=== PATIENT | female | born 1980 | race Caucasian/White ===

== ENCOUNTER 2016-11-05 23:39 | Emergency (ER) | payer OTHER ==
[~2016-11-05 23:39] MED LIST: ACAR25TA2 PO; ACAR50TA2 PO; ACET50TAOT PO; ADDE1TAB20 PO; ADDE30CA PO; ADDE5TAB5 PO; AMBI10TA PO; AMBI5TAB PO; AMPH30TA PO; BACITAB3 PO; BACT2CRE TOP; BACT2OIN2 TOP; BENA25TA4 PO; CALC500C16 PO; CALC600T10 PO; CALCCHW18 PO; CLEO300C2 PO; CLON0.5T PO; COLA100C PO; DOXE150C7 PO; ESZO1TAB3 PO; FLUO10CA8 PO; FLUO20CA9 PO; FOLI1TAB2 PO; GABA300C3 PO; GABA600T PO; GLUC1KIT INJ; IBUP600T26 PO; IBUP80TA PO; KEFL500C7 PO; KLON1TAB PO; LATU20TA PO; LATU40TA PO; MULT1TAB8 PO; MULTCAP PO; MULTCHW13 PO; MUPI2OI TOP; NEUR300C PO; NEUR400C PO; NEUR600T PO; OXYCO5TA PO; PANT40TA2 PO; PARO30TA70 PO; PENI50TA PO; PROTPAK PO; PROZ20CA11 PO; PROZ40CA PO; ROXICODONE; STRA80CA PO; TIZA2CAP3 PO; TIZA2TA PO; TIZA4CAP3 PO; TOPA25TA10 PO; TOPA50TA7 PO; TRAZ100T4 PO; TRAZ25TA PO; TRAZO50TA PO; TYLE500T78 PO; VALI10TA PO; VARE1TA PO; VENL150C43 PO; VIBR100C PO; VITA10002 PO; VITA100066 PO; VITA1CHW8 PO; VITATAB11 PO; VITATAB73 PO; VITMTA PO; ZANA4TAB PO
--- NOTE | 2016-11-06 01:16 | EDDOCDS ---
Nurse's Notes [facility] Name: Lianne Saldana Age: 35 yrs Sex: Female : 1980 Arrival Date: 11/05/2016 Time: 23:39 Bed 12 Private MD: Unknown Pcp Diagnosis: Fall on same level, unspecified;Chronic pain syndrome Presentation: 11/05 23:56 Presenting complaint: Patient states: "I am stressed and moving and upset. I fell and cf2 now can't feel my right side, I can move everything, I passed out, my cellulitis spread from one leg to both" EMS states: States fell with +LOC, moves all extremities, neuro checks WNL. Aspirin was not taken prior to arrival. Adult Sepsis Screening: The patient does not have new or worsening altered mentation. Patient's respiratory rate is less than 22. Systolic blood pressure is greater than 100. Patient has a qSOFA score of 0- Negative Sepsis Screen. Suicide/Homicide risk assessment- the patient denies having any suicidal and/or homicidal ideations and does not present with any other emotional, behavioral or mental health complaints. Status: Status: The patient is a dependent. Transition of care: patient was not received from another setting of care. 23:56 Acuity: KRYS Level 3 cf2 23:56 Method Of Arrival: Ambulance cf2 Triage Assessment: 11/06 00:00 General: Appears in no apparent distress, comfortable. Pain: Denies pain. Pt Declines cf2 HIV testing. Cardiovascular: Chest pain. 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 Adderall XR 30 mg Oral cp24 1 cap twice a day not taking at this time 2. Ambien 10 mg Oral tab 1 tab nightly prn not taking at this time 3. gabapentin 300 mg Oral cap 3 caps 3 times per day 4. Valium 10 mg Oral tab 5. topiramate 25 mg oral cpSP 1 caps 2 times per day 6. Latuda 40 mg oral tab 7. trazodone 50 mg Oral tab 1 tab on HS as needed - PMHx: ADHD; Anemia; Anxiety; Depression; Hypoglycemia; insomnia; PTSD; Raynauds; Sciatica; TBI; - The history from nurses notes was reviewed: and I agree with what is documented. - Social history: Smoking status: Patient uses tobacco products, light tobacco smoker. Race: White, Ethnicity: Not or No barriers to communication noted, The patient speaks fluent Bolivian, Preferred Language: Bolivian. - : The pt / caregiver states he / she is not on anticoagulants. Home medication list is obtained from the patient. - Hospitalizations: : No recent hospitalization is reported. - Exposure Risk Screening:: None identified. - Immunization history:: All immunizations up-to-date. - Family history: Not pertinent. 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 Screenin/02 23:43 Infection Control. sew 11/06 00:26 Screening information is obtained from the patient. Fall risk: No risks identified. cf2 Assistance ADL's: requires no assistance with activities of daily living. Abuse/DV Screen: The patient / caregiver reports he/she is: not in a situation that causes fear, pain or injury. Nutritional screening: No deficits noted. Advance Directives: Further advance directive information is declined. home support is adequate. Assessment: 00:26 Adult Sepsis Screening: The patient does not have new or worsening altered mentation. cf2 Patient's respiratory rate is less than 22. Systolic blood pressure is greater than 100. Patient has a qSOFA score of 0- Negative Sepsis Screen. General: Appears in no apparent distress, comfortable, Behavior is appropriate for age, cooperative, Denies fever, feeling ill, fatigue, chills. Pain: Denies pain. Neurological: No deficits noted. EENT: No deficits noted. Cardiovascular: Rhythm is sinus rhythm Chest pain is denied. Respiratory: No deficits noted. GI: No deficits noted. : No deficits noted. Derm: No deficits noted. Musculoskeletal: No deficits noted. Injury Description: pt fell. 01:12 General: pt refused to sigh discharge papers stating she is going to report Dr Corrina glass because he did not give her pain medications. Stated she was going to throw discharge papers at the doctors face and I advised her that this was not in her best interest. pt left the department ambulatory without incident.. Vital Signs: 11/05 23:47 BP 126 / 60; Pulse 84; Resp 18; Temp 96.9(O); Pulse Ox 98% on R/A; Weight 101.15 kg irena (R); Height 5 ft. 8 in. (172.72 cm) (R); Pain 8/10; 23:47 Body Mass Index 33.91 (101.15 kg, 172.72 cm) irena Vitals: 11/06 00:00 Log In Time N/A - ambulance arrival. cf2 ED Course: 11/05 23:41 Patient visited by Norma Nolan. sew 23:41 Unknown Pcp is Private Physician. sew 23:41 Patient moved to 12 sew 23:42 Patient visited by Norma Nolan. sew 23:42 Raf Houser MD is Attending Physician. pc 23:44 Mary Ellen Zamora,LUNA is Primary Nurse. cf2 23:44 Patient visited by Mary Ellen Zamora,LUNA. cf2 23:44 Patient visited by Mary Ellen Zamora,LUNA. cf2 23:47 Patient visited by Clemencia Velásquez PCA. irena 23:47 Pt greeted and oriented to ED. Patient advised of names of staff involved in care, irena location of call [place], wait times and NPO status. Patient has correct armband on for positive identification. Placed in gown. Bed in low position. Call light in reach. Side rails up X2. 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 Pulse ox on. NIBP on. 23:54 Patient visited by Raf Houser MD. pc 23:56 Patient visited by Mary Ellen Zamora,LUNA. cf2 23:56 EKG done. (by ED staff). Reviewed by Raf Houser MD. irena 23:57 Patient visited by Clemencia Velásquez PCA. irena 23:58 Triage Initiated cf2 11/06 00:26 Patient visited by Mary Ellen Zamora,LUNA. cf2 00:26 The patient / caregiver is instructed regarding the plan of care and ED course. cf2 00:26 No IV's were initiated during this patient's visit. No procedures done that require cf2 assistance. 00:41 Patient visited by Mary Ellen Zamora,LUNA. cf2 00:46 [facility] is Referral Physician. pc 00:47 [facility] Payment Agreement was scanned into [employer] and attached to record. hs2 00:52 Patient visited by Mary Ellen Zamora,RN. cf2 Order Results: There are currently no results for this order. Outcome: 00:47 Discharge ordered by Provider. 01:10 Discharge Assessment: patient administered narcotics - no. The following High Risk maria luisa Discharge criteria are identified: None. Discharged to home ambulatory. Condition: stable. Discharge instructions given to patient, Instructed on discharge instructions, follow up and referral plans. Demonstrated understanding of instructions, Patient was not receptive of discharge instructions. Other pt demanding pain medication. CT Study completed. Property sent home with patient. 01:15 Patient left the ED. maria luisa Signatures: Raf Houser MD MD pc Newman, Jill New RN RN Clemencia Walker, BARREL FILLER BARREL FILLER Norma Alvarez Hillary, [facility] Reg hs2 Mary Ellen Zamora,RN RN cf2 MTDD
--- NOTE | 2016-11-06 01:16 | EDDOCDS ---
Physician Documentation [facility] Name: Lianne Saldana Age: 35 yrs Sex: Female : 1980 Arrival Date: 11/05/2016 Time: 23:39 Bed 12 Private MD: Unknown Pcp Disposition: 11/06 00:45 Critical Care: Critical care not applicable. pc Disposition: 11/06/16 00:47 Discharged to Home/Self Care. Impression: Fall on same level, unspecified, Chronic pain syndrome. - Condition is Stable. - Discharge Instructions: Chronic Pain. - Medication Reconciliation, Local Pharmacy Hours form. - Follow up: [facility]; When: As needed; Reason: Continuance of care. - Problem is chronic. - Symptoms are unchanged. HPI: 00:18 This 35 yrs old Female presents to ER via Ambulance with complaints of Head pc Injury. 00:18 The history is obtained from the patient, EMS providers. A reliable history and/or pc examination was not able to be obtained, due to Asleep, wakened to interview. Speaking with slow thick speech as usual, due to medication overuse. Per EMS she had chest pain which the patient denies. She says she did not get home off the road from [place] until 7am today, and has been cleaning all day to be out of their apartment by tomorrow afternoon. She says she felt "overcome, like it took a toll on my body and mind, and I fell to the floor while standing at the sink". She thinks she may have passed out for a few minutes. She says she crawled down to her room and lay down for 40 minutes. She says she is able to move all of her arms and legs but her right arm and leg feel numb. She says she walks with a limp because of chronic hip problems but that it is worse tonight. 00:23 The patient has been recently seen at the [facility], last week, for AMS, pc when she was found to be overusing her medications again and she signed out AMA. She says she moved to [place] to get help with her drug abuse but after 48 hours, " no one would start me on Suboxone, so I came back". Historical: - Allergies: Bactrim (Hives); Bentyl (Seizures); IV Dye (Rash); NSAIDS (can not take due to gastric bypass)gastric bypas procedure done in 2002; - Home Meds: 1. Adderall XR 30 mg Oral cp24 1 cap twice a day not taking at this time 2. Ambien 10 mg Oral tab 1 tab nightly prn not taking at this time 3. gabapentin 300 mg Oral cap 3 caps 3 times per day 4. Valium 10 mg Oral tab 5. topiramate 25 mg oral cpSP 1 caps 2 times per day 6. Latuda 40 mg oral tab 7. trazodone 50 mg Oral tab 1 tab on HS as needed - PMHx: ADHD; Anemia; Anxiety; Depression; Hypoglycemia; insomnia; PTSD; Raynauds; Sciatica; TBI; - The history from nurses notes was reviewed: and I agree with what is documented. - Social history: Smoking status: Patient uses tobacco products, light tobacco smoker. Race: White, Ethnicity: Not or No barriers to communication noted, The patient speaks fluent Egyptian, Preferred Language: Egyptian. - : The pt / caregiver states he / she is not on anticoagulants. Home medication list is obtained from the patient. - Hospitalizations: : No recent hospitalization is reported. - Exposure Risk Screening:: None identified. - Immunization history:: All immunizations up-to-date. - Family history: Not pertinent. 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 pc 00:25 All systems are negative except as listed. Exam: 00:25 General Appearance: no acute distress. pc 00:25 EENT: normal eye inspection, ears, nose and throat normal, pharynx normal, mucous membranes moist no apparent trauma, no scalp pain or signs of injury. 00:25 Neck: The exam reveals no acute abnormalities. ROM is normal and painless. No nuchal rigidity is noted.. 00:25 Respiratory: no respiratory distress, normal breath sounds, chest non-tender. 00:25 CVS: regular pulse rate, regular rhythm, normal S1 and S2, no murmurs, strong peripheral pulses, normal capillary refill. 00:25 Abdomen: soft, non-tender, no organomegaly, normal bowel sounds. 00:25 Back: normal inspection. 00:25 Skin: skin color is normal, warm, dry, multiple skin sores on LEs. 00:25 Extremities: are non-tender, without acute ROM abnormalities. 00:25 Neuro: oriented x 3, no motor deficits, no sensory deficits, cranial nerves normal except for Speech is slowed. 00:25 Psych: normal mood. Vital Signs: 11/05 23:47 BP 126 / 60; Pulse 84; Resp 18; Temp 96.9(O); Pulse Ox 98% on R/A; Weight 101.15 kg / irena 223 lbs (R); Height 5 ft. 8 in. (172.72 cm) (R); Pain 8/10; 23:47 Body Mass Index 33.91 (101.15 kg, 172.72 cm) irena MDM: 23:51 ECG WITH READING ER PHYS+CARDIAG ordered. EDMS 11/06 00:13 CT Head Without Contrast Ordered. EDMS 00:25 Differential Diagnosis: reported fall, head injury and sensory complaints with normal pc physical examination; known medication/drug abuser. Plan: CT. 00:45 Data reviewed: old medical records, vital signs, nurses notes, all radiology studies pc and available results. Test interpretation: interpreted by Radiologist and personally reviewed, Head CT; normal. The patient has been re-examined and re-evaluated. The clinical presentation did not require any ED treatment or interventions. Disposition: The historical points, examination findings, and any diagnostic results supporting the provided diagnosis, were discussed with the patient or legal guardian. The need for outpatient follow up with the provider listed on their discharge instructions was discussed. They were encouraged to return to [facility], or the nearest ED, if symptoms worsen/persist, or for any other questions/concerns. 00:46 Financial registration complete. hs2 00:47 [facility] Payment Agreement was scanned into [employer] and attached to record. hs2 00:48 Test interpretation: EKG. pc EC:48 Rate is 82 beats/min. Rhythm is regular, Normal Sinus Rhythm. QRS [place] is Normal. SC pc interval is normal. QRS interval is normal. QT interval is normal. No Q waves. T waves are Normal. No ST changes noted. Clinical impression: Normal Sinus Rhythm. Signatures: Dispatcher [facility] Raf Houser MD MD pc Newman, Jill New, RN RN jan Stanton, Hillary, Reg Reg hs2 Mary Ellen Zamora,RN RN cf2 The chart was reviewed and I authenticate all verbal orders and agree with the evaluation and treatment provided.Attachments: 00:47 [facility] Payment Agreement hs2 MTDD
--- NOTE | 2016-11-06 08:14 | ECGEPIP ---
Stationary ECG Study [facility] - ED Test Date: 2016-11-05 Pat Name: TOMÁS LYNCH Department: Room: - Gender: F School Age Program Associate: WayneB: 1980 Requested By: Raf Heredia Order Number: [id number] Reading MD: Norma Munguia Measurements Intervals [place] Rate: 82 P: 28 WV: 168 QRS: 17 QRSD: 89 T: -1 QT: 373 QTc: 436 Interpretive Statements SINUS RHYTHM NSTTW ABNORMALITY BASELINE ARTIFACT LIMITS INTERPRETATION Electronically Signed On 11-06-2016 8:14:29 EST by Norma Munguia
--- NOTE | 2016-11-08 02:16 | EDDOCDS ---
Physician Documentation [facility] Name: Lianne Saldana Age: 35 yrs Sex: Female : 1980 Arrival Date: 11/05/2016 Time: 23:39 Bed 12 Private MD: Unknown Pcp Disposition: 11/06 00:45 Critical Care: Critical care not applicable. pc Disposition: 11/06/16 00:47 Discharged to Home/Self Care. Impression: Fall on same level, unspecified, Chronic pain syndrome. - Condition is Stable. - Discharge Instructions: Chronic Pain. - Medication Reconciliation, Local Pharmacy Hours form. - Follow up: [facility]; When: As needed; Reason: Continuance of care. - Problem is chronic. - Symptoms are unchanged. HPI: 00:18 This 35 yrs old Female presents to ER via Ambulance with complaints of Head pc Injury. 00:18 The history is obtained from the patient, EMS providers. A reliable history and/or pc examination was not able to be obtained, due to Asleep, wakened to interview. Speaking with slow thick speech as usual, due to medication overuse. Per EMS she had chest pain which the patient denies. She says she did not get home off the road from [place] until 7am today, and has been cleaning all day to be out of their apartment by tomorrow afternoon. She says she felt "overcome, like it took a toll on my body and mind, and I fell to the floor while standing at the sink". She thinks she may have passed out for a few minutes. She says she crawled down to her room and lay down for 40 minutes. She says she is able to move all of her arms and legs but her right arm and leg feel numb. She says she walks with a limp because of chronic hip problems but that it is worse tonight. 00:23 The patient has been recently seen at the [facility], last week, for AMS, pc when she was found to be overusing her medications again and she signed out AMA. She says she moved to [place] to get help with her drug abuse but after 48 hours, " no one would start me on Suboxone, so I came back". Historical: - Allergies: Bactrim (Hives); Bentyl (Seizures); IV Dye (Rash); NSAIDS (can not take due to gastric bypass)gastric bypas procedure done in 2002; - Home Meds: 1. Adderall XR 30 mg Oral cp24 1 cap twice a day not taking at this time 2. Ambien 10 mg Oral tab 1 tab nightly prn not taking at this time 3. gabapentin 300 mg Oral cap 3 caps 3 times per day 4. Valium 10 mg Oral tab 5. topiramate 25 mg oral cpSP 1 caps 2 times per day 6. Latuda 40 mg oral tab 7. trazodone 50 mg Oral tab 1 tab on HS as needed - PMHx: ADHD; Anemia; Anxiety; Depression; Hypoglycemia; insomnia; PTSD; Raynauds; Sciatica; TBI; - The history from nurses notes was reviewed: and I agree with what is documented. - Social history: Smoking status: Patient uses tobacco products, light tobacco smoker. Race: White, Ethnicity: Not or No barriers to communication noted, The patient speaks fluent Czech, Preferred Language: Czech. - : The pt / caregiver states he / she is not on anticoagulants. Home medication list is obtained from the patient. - Hospitalizations: : No recent hospitalization is reported. - Exposure Risk Screening:: None identified. - Immunization history:: All immunizations up-to-date. - Family history: Not pertinent. 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 pc 00:25 All systems are negative except as listed. Exam: 00:25 General Appearance: no acute distress. pc 00:25 EENT: normal eye inspection, ears, nose and throat normal, pharynx normal, mucous membranes moist no apparent trauma, no scalp pain or signs of injury. 00:25 Neck: The exam reveals no acute abnormalities. ROM is normal and painless. No nuchal rigidity is noted.. 00:25 Respiratory: no respiratory distress, normal breath sounds, chest non-tender. 00:25 CVS: regular pulse rate, regular rhythm, normal S1 and S2, no murmurs, strong peripheral pulses, normal capillary refill. 00:25 Abdomen: soft, non-tender, no organomegaly, normal bowel sounds. 00:25 Back: normal inspection. 00:25 Skin: skin color is normal, warm, dry, multiple skin sores on LEs. 00:25 Extremities: are non-tender, without acute ROM abnormalities. 00:25 Neuro: oriented x 3, no motor deficits, no sensory deficits, cranial nerves normal except for Speech is slowed. 00:25 Psych: normal mood. Vital Signs: 11/05 23:47 BP 126 / 60; Pulse 84; Resp 18; Temp 96.9(O); Pulse Ox 98% on R/A; Weight 101.15 kg / irena 223 lbs (R); Height 5 ft. 8 in. (172.72 cm) (R); Pain 8/10; 23:47 Body Mass Index 33.91 (101.15 kg, 172.72 cm) irena MDM: 23:51 ECG WITH READING ER PHYS+CARDIAG ordered. EDMS 11/06 00:13 CT Head Without Contrast Ordered. EDMS 00:25 Differential Diagnosis: reported fall, head injury and sensory complaints with normal pc physical examination; known medication/drug abuser. Plan: CT. 00:45 Data reviewed: old medical records, vital signs, nurses notes, all radiology studies pc and available results. Test interpretation: interpreted by Radiologist and personally reviewed, Head CT; normal. The patient has been re-examined and re-evaluated. The clinical presentation did not require any ED treatment or interventions. Disposition: The historical points, examination findings, and any diagnostic results supporting the provided diagnosis, were discussed with the patient or legal guardian. The need for outpatient follow up with the provider listed on their discharge instructions was discussed. They were encouraged to return to [facility], or the nearest ED, if symptoms worsen/persist, or for any other questions/concerns. 00:46 Financial registration complete. hs2 00:[address] [place] Payment Agreement was scanned into [employer] and attached to record. hs2 00:48 Test interpretation: EKG. pc 10:23 ECG/EKG was scanned into [employer] and attached to record. EC:48 Rate is 82 beats/min. Rhythm is regular, Normal Sinus Rhythm. QRS [place] is Normal. [place] pc interval is normal. QRS interval is normal. QT interval is normal. No Q waves. T waves are Normal. No ST changes noted. Clinical impression: Normal Sinus Rhythm. Signatures: Dispatcher [facility] Chafe, Raf, Mabel Sanchez MD RN RN Lisa Gaspar, Reg Reg gb Frannie Brenner, Reg Reg hs2 Mary Ellen Zamora,RN RN cf2 The chart was reviewed and I authenticate all verbal orders and agree with the evaluation and treatment provided.Attachments: 00:47 [facility] Payment Agreement hs2 10:23 ECG/EKG gb Chart Complete MTDD
--- NOTE | 2016-11-08 02:16 | EDDOCDS ---
Nurse's Notes [facility] Name: Lianne Lynch Age: 35 yrs Sex: Female : 1980 Arrival Date: 11/05/2016 Time: 23:39 Bed 12 Private MD: Unknown Pcp Diagnosis: Fall on same level, unspecified;Chronic pain syndrome Presentation: 11/05 23:56 Presenting complaint: Patient states: "I am stressed and moving and upset. I fell and cf2 now can't feel my right side, I can move everything, I passed out, my cellulitis spread from one leg to both" EMS states: States fell with +LOC, moves all extremities, neuro checks WNL. Aspirin was not taken prior to arrival. Adult Sepsis Screening: The patient does not have new or worsening altered mentation. Patient's respiratory rate is less than 22. Systolic blood pressure is greater than 100. Patient has a qSOFA score of 0- Negative Sepsis Screen. Suicide/Homicide risk assessment- the patient denies having any suicidal and/or homicidal ideations and does not present with any other emotional, behavioral or mental health complaints. Status: Status: The patient is a dependent. Transition of care: patient was not received from another setting of care. 23:56 Acuity: KRYS Level 3 cf2 23:56 Method Of Arrival: Ambulance cf2 Triage Assessment: 11/06 00:00 General: Appears in no apparent distress, comfortable. Pain: Denies pain. Pt Declines cf2 HIV testing. Cardiovascular: Chest pain. [facility]: 00:00 LMP N/A - Hysterectomy cf2 Historical: - Allergies: Bactrim (Hives); Bentyl (Seizures); IV Dye (Rash); NSAIDS (can not take due to gastric bypass)gastric bypas procedure done in 2002; - Home Meds: 1. Adderall XR 30 mg Oral cp24 1 cap twice a day not taking at this time 2. Ambien 10 mg Oral tab 1 tab nightly prn not taking at this time 3. gabapentin 300 mg Oral cap 3 caps 3 times per day 4. Valium 10 mg Oral tab 5. topiramate 25 mg oral cpSP 1 caps 2 times per day 6. Latuda 40 mg oral tab 7. trazodone 50 mg Oral tab 1 tab on HS as needed - PMHx: ADHD; Anemia; Anxiety; Depression; Hypoglycemia; insomnia; PTSD; Raynauds; Sciatica; TBI; - The history from nurses notes was reviewed: and I agree with what is documented. - Social history: Smoking status: Patient uses tobacco products, light tobacco smoker. Race: White, Ethnicity: Not or No barriers to communication noted, The patient speaks fluent Zambian, Preferred Language: Zambian. - : The pt / caregiver states he / she is not on anticoagulants. Home medication list is obtained from the patient. - Hospitalizations: : No recent hospitalization is reported. - Exposure Risk Screening:: None identified. - Immunization history:: All immunizations up-to-date. - Family history: Not pertinent. 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 Screenin/02 23:43 Infection Control. sew 11/06 00:26 Screening information is obtained from the patient. Fall risk: No risks identified. cf2 Assistance ADL's: requires no assistance with activities of daily living. Abuse/DV Screen: The patient / caregiver reports he/she is: not in a situation that causes fear, pain or injury. Nutritional screening: No deficits noted. Advance Directives: Further advance directive information is declined. home support is adequate. Assessment: 00:26 Adult Sepsis Screening: The patient does not have new or worsening altered mentation. cf2 Patient's respiratory rate is less than 22. Systolic blood pressure is greater than 100. Patient has a qSOFA score of 0- Negative Sepsis Screen. General: Appears in no apparent distress, comfortable, Behavior is appropriate for age, cooperative, Denies fever, feeling ill, fatigue, chills. Pain: Denies pain. Neurological: No deficits noted. EENT: No deficits noted. Cardiovascular: Rhythm is sinus rhythm Chest pain is denied. Respiratory: No deficits noted. GI: No deficits noted. : No deficits noted. Derm: No deficits noted. Musculoskeletal: No deficits noted. Injury Description: pt fell. 01:12 General: pt refused to sigh discharge papers stating she is going to report Dr Corrina glass because he did not give her pain medications. Stated she was going to throw discharge papers at the doctors face and I advised her that this was not in her best interest. pt left the department ambulatory without incident.. Vital Signs: 11/05 23:47 BP 126 / 60; Pulse 84; Resp 18; Temp 96.9(O); Pulse Ox 98% on R/A; Weight 101.15 kg irena (R); Height 5 ft. 8 in. (172.72 cm) (R); Pain 8/10; 23:47 Body Mass Index 33.91 (101.15 kg, 172.72 cm) irena Vitals: 11/06 00:00 Log In Time N/A - ambulance arrival. cf2 ED Course: 11/05 23:41 Patient visited by Norma Nolan. sew 23:41 Unknown Pcp is Private Physician. sew 23:41 Patient moved to 12 sew 23:42 Patient visited by Norma Nolan. sew 23:42 Raf Houser MD is Attending Physician. pc 23:44 Mary Ellen Zamora,LUNA is Primary Nurse. cf2 23:44 Patient visited by Mary Ellen Zamora,LUNA. cf2 23:44 Patient visited by Mary Ellen Zamora,LUNA. cf2 23:47 Patient visited by Clemencia Velásquez PCA. irena 23:47 Pt greeted and oriented to ED. Patient advised of names of staff involved in care, irena location of call [place], wait times and NPO status. Patient has correct armband on for positive identification. Placed in gown. Bed in low position. Call light in reach. Side rails up X2. box inspector on. Pulse ox on. NIBP on. 23:54 Patient visited by Raf Houser MD. pc 23:56 Patient visited by Mary Ellen Zamora,LUNA. cf2 23:56 EKG done. (by ED staff). Reviewed by Raf Houser MD. irena 23:57 Patient visited by Clemencia Velásquez PCA. irena 23:58 Triage Initiated cf2 11/06 00:26 Patient visited by Mary Ellen Zamora,LUNA. cf2 00:26 The patient / caregiver is instructed regarding the plan of care and ED course. cf2 00:26 No IV's were initiated during this patient's visit. No procedures done that require cf2 assistance. 00:41 Patient visited by Mary Ellen Zamora,LUNA. cf2 00[facility] pc 00:47 [facility] Payment Agreement was scanned into [employer] and attached to record. hs2 00:52 Patient visited by Mary Ellen Zamora RN. cf2 01:16 CT Head Without Contrast Returned. EDMS 08:36 EKG-ADULT Returned. EDMS 10:23 ECG/EKG was scanned into [employer] and attached to record. 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; : 1980 Requested By: Raf Heredia; Order Number: [id number] Reading MD: Norma Munguia; Measurements; Intervals [place]; Rate: 82 P: 28; VT: 168 QRS: 17; QRSD: 89 T: -1; QT: 373; QTc: 436; Interpretive Statements; SINUS RHYTHM; NSTTW ABNORMALITY; BASELINE ARTIFACT LIMITS INTERPRETATION; Electronically Signed On 11-06-2016 8:14:29 EST by Norma Munguia; Radiology Order: CT Head Without Contrast Test: CT Head Without Contrast REASON FOR EXAMINATION: Trauma; ; CLINICAL HISTORY: Head trauma.; TECHNIQUE: Multiple axial brain CT scan sections were obtained from base to vertex without contrast a; dministration.; COMMENTS:; There is no evidence of skull fracture.; The study shows normal configuration of sella turcica. There are no intra or extra-axial collections.; There is no mass effect or midline shift. There is no evidence of hematoma formation. No hydrocephal; us is present. No abnormal calcifications are noted.; No significant abnormalities are seen either in the posterior fossa or supratentorial compartment.; The sinuses and mastoid air cells are patent.; IMPRESSION:; No evidence of acute intracranial pathology. No intracranial hemorrhage or skull fracture.; Thank you for your kind referral of this patient.; ; Outcome: 00:47 Discharge ordered by Provider. pc 01:10 Discharge Assessment: patient administered narcotics - no. The following High Risk maria luisa Discharge criteria are identified: None. Discharged to home ambulatory. Condition: stable. Discharge instructions given to patient, Instructed on discharge instructions, follow up and referral plans. Demonstrated understanding of instructions, Patient was not receptive of discharge instructions. Other pt demanding pain medication. CT Study completed. Property sent home with patient. 01:15 Patient left the ED. maria luisa Signatures: Dispatcher [employer] EDRaf Ag MD MD pc Newman, Mabel Mendoza, RN RN Lisa Gaspar, Reg Reg gb Clemencia Velásquez, AUTOMOBILE ACCESSORIES SALESPERSON [employer]ESSOR[employer] SALESPERSON Norma Alvarez Hillary, Reg Reg hs2 Mary Ellen Zamora RN RN cf2 Chart Complete MTDD
--- NOTE | 2016-11-08 02:16 | EDDOCDS ---
Physician Documentation [facility] Name: Lianne Saldana Age: 35 yrs Sex: Female : 1980 Arrival Date: 11/05/2016 Time: 23:39 Bed 12 Private MD: Unknown Pcp Disposition: 11/06 00:45 Critical Care: Critical care not applicable. pc Disposition: 11/06/16 00:47 Discharged to Home/Self Care. Impression: Fall on same level, unspecified, Chronic pain syndrome. - Condition is Stable. - Discharge Instructions: Chronic Pain. - Medication Reconciliation, Local Pharmacy Hours form. - Follow up: [facility]; When: As needed; Reason: Continuance of care. - Problem is chronic. - Symptoms are unchanged. HPI: 00:18 This 35 yrs old Female presents to ER via Ambulance with complaints of Head pc Injury. 00:18 The history is obtained from the patient, EMS providers. A reliable history and/or pc examination was not able to be obtained, due to Asleep, wakened to interview. Speaking with slow thick speech as usual, due to medication overuse. Per EMS she had chest pain which the patient denies. She says she did not get home off the road from [place] until 7am today, and has been cleaning all day to be out of their apartment by tomorrow afternoon. She says she felt "overcome, like it took a toll on my body and mind, and I fell to the floor while standing at the sink". She thinks she may have passed out for a few minutes. She says she crawled down to her room and lay down for 40 minutes. She says she is able to move all of her arms and legs but her right arm and leg feel numb. She says she walks with a limp because of chronic hip problems but that it is worse tonight. 00:23 The patient has been recently seen at the [facility], last week, for AMS, pc when she was found to be overusing her medications again and she signed out AMA. She says she moved to [place] to get help with her drug abuse but after 48 hours, " no one would start me on Suboxone, so I came back". Historical: - Allergies: Bactrim (Hives); Bentyl (Seizures); IV Dye (Rash); NSAIDS (can not take due to gastric bypass)gastric bypas procedure done in 2002; - Home Meds: 1. Adderall XR 30 mg Oral cp24 1 cap twice a day not taking at this time 2. Ambien 10 mg Oral tab 1 tab nightly prn not taking at this time 3. gabapentin 300 mg Oral cap 3 caps 3 times per day 4. Valium 10 mg Oral tab 5. topiramate 25 mg oral cpSP 1 caps 2 times per day 6. Latuda 40 mg oral tab 7. trazodone 50 mg Oral tab 1 tab on HS as needed - PMHx: ADHD; Anemia; Anxiety; Depression; Hypoglycemia; insomnia; PTSD; Raynauds; Sciatica; TBI; - The history from nurses notes was reviewed: and I agree with what is documented. - Social history: Smoking status: Patient uses tobacco products, light tobacco smoker. Race: White, Ethnicity: Not or No barriers to communication noted, The patient speaks fluent Yemeni, Preferred Language: Yemeni. - : The pt / caregiver states he / she is not on anticoagulants. Home medication list is obtained from the patient. - Hospitalizations: : No recent hospitalization is reported. - Exposure Risk Screening:: None identified. - Immunization history:: All immunizations up-to-date. - Family history: Not pertinent. 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 pc 00:25 All systems are negative except as listed. Exam: 00:25 General Appearance: no acute distress. pc 00:25 EENT: normal eye inspection, ears, nose and throat normal, pharynx normal, mucous membranes moist no apparent trauma, no scalp pain or signs of injury. 00:25 Neck: The exam reveals no acute abnormalities. ROM is normal and painless. No nuchal rigidity is noted.. 00:25 Respiratory: no respiratory distress, normal breath sounds, chest non-tender. 00:25 CVS: regular pulse rate, regular rhythm, normal S1 and S2, no murmurs, strong peripheral pulses, normal capillary refill. 00:25 Abdomen: soft, non-tender, no organomegaly, normal bowel sounds. 00:25 Back: normal inspection. 00:25 Skin: skin color is normal, warm, dry, multiple skin sores on LEs. 00:25 Extremities: are non-tender, without acute ROM abnormalities. 00:25 Neuro: oriented x 3, no motor deficits, no sensory deficits, cranial nerves normal except for Speech is slowed. 00:25 Psych: normal mood. Vital Signs: 11/05 23:47 BP 126 / 60; Pulse 84; Resp 18; Temp 96.9(O); Pulse Ox 98% on R/A; Weight 101.15 kg / irena 223 lbs (R); Height 5 ft. 8 in. (172.72 cm) (R); Pain 8/10; 23:47 Body Mass Index 33.91 (101.15 kg, 172.72 cm) irena MDM: 23:51 ECG WITH READING ER PHYS+CARDIAG ordered. EDMS 11/06 00:13 CT Head Without Contrast Ordered. EDMS 00:25 Differential Diagnosis: reported fall, head injury and sensory complaints with normal pc physical examination; known medication/drug abuser. Plan: CT. 00:45 Data reviewed: old medical records, vital signs, nurses notes, all radiology studies pc and available results. Test interpretation: interpreted by Radiologist and personally reviewed, Head CT; normal. The patient has been re-examined and re-evaluated. The clinical presentation did not require any ED treatment or interventions. Disposition: The historical points, examination findings, and any diagnostic results supporting the provided diagnosis, were discussed with the patient or legal guardian. The need for outpatient follow up with the provider listed on their discharge instructions was discussed. They were encouraged to return to [facility], or the nearest ED, if symptoms worsen/persist, or for any other questions/concerns. 00:46 Financial registration complete. hs2 00:47 [place] Payment Agreement was scanned into [employer] and attached to record. hs2 00:48 Test interpretation: EKG. pc 10:23 ECG/EKG was scanned into [employer] and attached to record. EC:48 Rate is 82 beats/min. Rhythm is regular, Normal Sinus Rhythm. QRS [place] is Normal. [place] pc interval is normal. QRS interval is normal. QT interval is normal. No Q waves. T waves are Normal. No ST changes noted. Clinical impression: Normal Sinus Rhythm. Signatures: Dispatcher [facility] Chafe, Raf, Mabel Sanchez MD RN RN Lisa Gaspar, Reg Reg gb Frannie Brenner, Reg Reg hs2 Mary Ellen Zamora,RN RN cf2 The chart was reviewed and I authenticate all verbal orders and agree with the evaluation and treatment provided.Attachments: 00:47 [facility] Payment Agreement hs2 10:23 ECG/EKG gb Chart Complete MTDD
== END 2016-11-06 01:15 | disposition home or self-care (01) ==
LOC: M ED 23:39
DX: G89.4 Chronic pain syndrome (principal); W19.XXXA Unspecified fall, initial encounter; Y92.019 Unspecified place in single-family (private) house as the place of occurrence of the external cause; Y93.89 Activity, other specified; Y99.8 Other external cause status; F41.9 Anxiety disorder, unspecified; F32.9 Major depressive disorder, single episode, unspecified; F43.10 Post-traumatic stress disorder, unspecified; F90.9 Attention-deficit hyperactivity disorder, unspecified type; G47.00 Insomnia, unspecified; I73.00 Raynaud's syndrome without gangrene; M54.30 Sciatica, unspecified side; Z87.820 Personal history of traumatic brain injury; Z72.0 Tobacco use; Z98.84 Bariatric surgery status; Z79.899 Other long term (current) drug therapy; Z88.1 Allergy status to other antibiotic agents; Z88.6 Allergy status to analgesic agent; Z88.8 Allergy status to other drugs, medicaments and biological substances; Z91.041 Radiographic dye allergy status

== ENCOUNTER 2016-11-07 13:44 | Emergency (ER) | payer OTHER ==
[2016-11-07] MEDS ORDERED: ONDANSETRON 4MG/2ML VIAL (J2405) As Ordered ONE (14:07)
[2016-11-07] MEDS ORDERED: PROMETHAZINE INJ 25 MG/ML VIAL (J2550) As Ordered ONE (14:21)
[2016-11-07 14:24] LABS: MEAN CORPUSCULAR HEMOGLOBIN 30.4 pg (27.0-33.0); MEAN CORPUSCULAR HGB CONC 32.2 g/dl (32.0-36.5); MEAN CORPUSCULAR VOLUME 94.1 fl (80.0-96.0); RED CELL DISTRIBUTION WIDTH 14.4 % (11.5-14.5); WHITE BLOOD COUNT 8.9 K/mm3 (4.0-10.0)
[2016-11-07 14:37] LABS: ALBUMIN 3.8 GM/DL (3.2-5.2); ALBUMIN/GLOBULIN RATIO 0.95 (1.00-1.93); ALKALINE PHOSPHATASE 35 U/L (45-117); ALT/SGPT 21 U/L (12-78); ANION GAP 10 MEQ/L (8-16); AST/SGOT 28 U/L (15-37); BILIRUBIN,DIRECT 0.1 MG/DL (0.0-0.2); BILIRUBIN,TOTAL 0.3 MG/DL (0.2-1.0); BLOOD UREA NITROGEN 12 MG/DL (7-18); CALCIUM LEVEL 8.6 MG/DL (8.5-10.1); CARBON DIOXIDE LEVEL 21 MEQ/L (21-32); CHLORIDE LEVEL 112 MEQ/L (98-107); CREATININE FOR GFR 1.13 MG/DL (0.55-1.02); GLOMERULAR FILTRATION RATE 57.7 (>60); GLUCOSE, FASTING 46 MG/DL (70-105); POTASSIUM SERUM 3.7 MEQ/L (3.5-5.1); SODIUM LEVEL 143 MEQ/L (136-145); TOTAL PROTEIN 7.8 GM/DL (6.4-8.2)
[2016-11-07 14:50] LABS: INR 1.07
[2016-11-07 15:03] LABS: AMPHETAMINES LEVEL URINE POSITIVE (NEGATIVE); BENZODIAZEPINES URINE POSITIVE (NEGATIVE); COCAINE METABOLITE URINE NEGATIVE (NEGATIVE); CONTROL LINE INT CTR LINE PRESENT; METHADONE URINE NEGATIVE (NEGATIVE); OPIATES URINE POSITIVE (NEGATIVE); TRICYCLIC ANTIDEPRESS URINE NEGATIVE (NEGATIVE)
[2016-11-07] MEDS ORDERED: DEXTROSE 50% 50 ML SYRINGE As Ordered ONE (18:28)
--- NOTE | 2016-11-07 23:13 | EDDOCDS ---
Physician Documentation [facility] Name: Lianne Saldana Age: 35 yrs Sex: Female : 1980 Arrival Date: 11/07/2016 Time: 13:44 Bed 3 Private MD: Tonya Alvarez Disposition: 11/07/16 22:34 Discharged to Home/Self Care. Impression: Opioid dependence with intoxication, Hypoglycemia, unspecified. - Condition is Stable. - Medication Reconciliation, Local Pharmacy Hours form. - Follow up: Private Physician; When: As previously arranged. - Problem is an ongoing problem. - Symptoms have improved. Historical: - Allergies: Bactrim (Hives); Bentyl (Seizures); IV Dye (Rash); NSAIDS (can not take due to gastric bypass)gastric bypas procedure done in 2002; - Home Meds: 1. Latuda 40 mg oral tab 1 tab once daily (Last dose: 11/07/2016 07:00) 2. topiramate 50 mg oral tab (Last dose: 11/07/2016 09:00) 3. Adderall XR 30 mg Oral cp24 1 cap twice a day not taking at this time 4. Valium 10 mg Oral tab states out of valium and adderal , uses them recreationaly and non additional today 5. gabapentin 300 mg Oral cap 3 caps 3 times per day 6. clonidine HCl 0.2 mg Oral tab once daily (Last dose: 11/06/2016) 7. Cipro 500 mg Oral tab 1 tab every 12 hours (Last dose: 11/04/2016) - PMHx: ADHD; Anemia; Anxiety; Depression; Hypoglycemia; insomnia; PTSD; Raynauds; Sciatica; TBI; - PSHx: Cholecystectomy; Tubal ligation; Gastric Bypass; Hysterectomy; - Social history: Smoking status: Patient uses tobacco products, current some day smoker. No barriers to communication noted, The patient speaks fluent Ukrainian. - Family history: Not pertinent. - : The pt / caregiver states he / she is not on anticoagulants. Home medication list is obtained from the patient. - Exposure Risk Screening:: None identified. 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 8 in. (172.72 cm); 14:30 BP 106 / 78 (auto/); ck1 14:34 Pulse 90 MON; Pulse Ox 99% ; ck1 15:00 BP 100 / 62 (auto/); ck1 15:00 Pulse 95 MON; Pulse Ox 99% ; ck1 15:30 BP 96 / 50 (auto/); ck1 15:51 BP 103 / 51 (auto/); ck1 15:52 Pulse 110 MON; Pulse Ox 100% ; ck1 16:00 BP 94 / 50 (auto/); ck1 16:00 BP 89 / 45 (auto/); ck1 16:00 Pulse 110 MON; Pulse Ox 91% ; ck1 16:01 Pulse 106 MON; Pulse Ox 96% ; ck1 16:02 Pulse 105 MON; Pulse Ox 100% ; ck1 16:03 Pulse 106 MON; Pulse Ox 100% ; ck1 16:08 BP 103 / 50 (auto/); ck1 16:38 BP 123 / 58 (auto/); ck1 16:53 BP 116 / 59 (auto/); ck1 17:08 BP 111 / 56 (auto/); ck1 17:09 Pulse 114 MON; Pulse Ox 100% ; ck1 17:10 Pulse 114 MON; Pulse Ox 98% ; ck1 17:23 BP 120 / 58 (auto/); ck1 17:38 BP 113 / 56 (auto/); ck1 17:53 BP 101 / 50 (auto/); ck1 17:53 Pulse 108 MON; Pulse Ox 95% ; ck1 17:57 BP 103 / 55 (auto/); ck1 17:57 Pulse 107 MON; Pulse Ox 95% ; ck1 18:03 BP 129 / 80 (auto/); ck1 18:04 Pulse 108 MON; Pulse Ox 99% ; ck1 18:11 BP 103 / 55; Pulse 107; Resp 16; Temp 99.0(O); Pulse Ox 95% on R/A; hs1 18:36 Pulse 95 MON; Pulse Ox 97% ; ck1 18:36 BP 121 / 56 (auto/); ck1 13:55 Body Mass Index 37.71 (112.49 kg, 172.72 cm) [facility] MDM: 13:55 Consult PFS/PSA/Grocery Store Bagger ordered. sd1 13:55 Consult PFS/PSA/Grocery Store Bagger: Patient's case requires discussion with on-call sd1 Psychiatrist ordered. 13:55 PSA/PFS to call Nursing Forestry Instructor, to enter patient data on [place] Safe [place] if patient sd1 involuntarily admitted or transferred for SI or HI ordered. 13:55 Chancery Clerk/Pulse Ox/q 15 min VS ordered. sd1 13:55 Confirm accurate psychiatric medication list and times of last dosage ordered. sd1 13:55 Detain Pt Until Medically/PFS Cleared ordered. sd1 13:55 IV Saline Lock ordered. sd1 13:57 Acetaminophen Level Ordered. EDMS 13:57 Basic Metabolic Profile Ordered. EDMS 13:57 Complete Blood Count Ordered. EDMS 13:57 Drug Eval Toxicology ED Only Ordered. EDMS 13:57 Ethyl Alcohol (ethanol) Ordered. EDMS 13:57 Liver Profile Ordered. EDMS 13:57 Salicylate Level Ordered. EDMS 13:57 Thyroid Stimulating Hormone Ordered. EDMS 14:12 NS 0.9% 1000 ml IV at bolus once ordered. sd1 14:12 Promethazine 25 mg IVP once; dilute and administer 30-60 minutes ordered. sd1 14:13 PT/INR Ordered. EDMS 14:18 PSA/PFS to call Nursing Forestry Instructor, to enter patient data [place] Safe [place] if patient ck1 involuntarily admitted or transferred for SI or HI complete. 14:18 Consult PFS/PSA/Grocery Store Bagger: Patient's case requires discussion with on-call ck1 Psychiatrist complete. 14:18 Consult PFS/PSA/Grocery Store Bagger complete. ck1 15:06 Basic Metabolic Profile Reviewed. sd1 15:06 Complete Blood Count Reviewed. sd1 15:06 Drug Eval Toxicology ED Only Reviewed. sd1 15:06 Liver Profile Reviewed. sd1 15:06 Salicylate Level Reviewed. sd1 15:06 Acetaminophen Level Reviewed. sd1 15:06 Ethyl Alcohol (ethanol) Reviewed. sd1 15:06 Thyroid Stimulating Hormone Reviewed. sd1 15:06 PT/INR Reviewed. sd1 16:03 [facility] [place] was scanned into [employer] and attached to record. dm19 16:04 Financial registration complete. dm19 17:11 NS 0.9% 1000 ml IV at bolus once ordered. ck1 17:13 NS 0.9% 1000 ml IV at bolus once ordered. sd1 17:55 Misc. Nursing Order ordered. sd1 18:10 Redraw Labs ordered. sd1 18:10 Accucheck ordered. sd1 18:11 Redraw Labs complete. lbd 18:14 ACETAMINOPHEN LEVEL Ordered. EDMS 18:21 Fingerstick Blood Sugar Ordered. EDMS 18:25 D50W 50 ml IVP once; (1 amp) ordered. sd1 19:02 ACETAMINOPHEN LEVEL Reviewed. sd1 19:02 Fingerstick Blood Sugar Reviewed. sd1 19:03 Redraw Acetaminophen (put time in details section) ordered. sd1 19:05 Redraw Acetaminophen (put time in details section) complete. sew 19:06 ACETAMINOPHEN LEVEL Ordered. EDMS 21:20 Ambulate Patient to Assess Patient Safety ordered. cs11 22:13 ACETAMINOPHEN LEVEL Reviewed. cs11 22:14 Accucheck ordered. cs11 22:32 Fingerstick Blood Sugar Ordered. EDMS Point of Care Testing: Blood Glucose: 18:15 Blood Glucose: 62 mg/dL; ck1 Ranges: Administered Medications: 14:33 Drug: NS 0.9% 1000 ml [sodium chloride 0.9 % intravenous solution] Route: IV; Rate: ck1 bolus; Site: right antecubital; 17:11 Follow up: IV Status: Completed infusion ck1 14:33 Drug: Promethazine 25 mg [promethazine 25 mg/mL injection solution (1 mL)] Route: IVP; ck1 Site: right antecubital; 17:11 Drug: NS 0.9% 1000 ml [sodium chloride 0.9 % intravenous solution] Route: IV; Rate: ck1 bolus; Site: right antecubital; 17:15 Not Given (Duplicate Order): NS 0.9% 1000 ml IV at bolus once ck1 18:35 Drug: D50W 50 ml [dextrose 50 % in water (D50W) intravenous syringe (50 mL)] Route: ck1 IVP; Site: right antecubital; Signatures: Dispatcher [employer] EDFL Norma Munguia MD MD sd1 Soni Neil, Foster [facility] lbd Nicola Beasley RN RN jmk Kim-Ashcraft, Connie, RN RN ck1 Norma Nolan Craig, DO DO cs11 Mary Ellen Zamora RN RN cf2 McLear, Suri dm19 The chart was reviewed and I authenticate all verbal orders and agree with the evaluation and treatment provided.Corrections: (The following items were deleted from the chart) 19:02 19:02 Redraw Acetaminophen (put time in details section) ordered. sd1 sd1 Attachments: 16:03 [facility] Payment Agreement dm19 MTDD
--- NOTE | 2016-11-07 23:13 | EDDOCDS ---
Nurse's Notes [facility] Name: Lianne Saldana Age: 35 yrs Sex: Female : 1980 Arrival Date: 11/07/2016 Time: 13:44 Bed 3 Private MD: Tonya Alvarez Diagnosis: Opioid dependence with intoxication;Hypoglycemia, unspecified Presentation: 11/07 13:46 Presenting complaint: Patient states: states I am going through withdrawals right now. jmk + back pain . and admits to taking 15 Percocet today and has not yet taken her 2nd dose for today. uses heroin, oxy Adderall gabapentin and anything else she can get her hands on. Adult Sepsis Screening: The patient does not have new or worsening altered mentation. Patient's respiratory rate is less than 22. Systolic blood pressure is greater than 100. Patient has a qSOFA score of 0- Negative Sepsis Screen. Suicide/Homicide risk assessment- the patient denies having any suicidal and/or homicidal ideations and does not present with any other emotional, behavioral or mental health complaints. Status: The patient is a dependent. Transition of care: patient was not received from another setting of care. 13:46 Acuity: KRYS Level 3 [facility] 13:46 Method Of Arrival: Ambulance [facility] Triage Assessment: 13:55 General: Appears alert and cooperative. responses slightly slurred. HIV screening [facility] for this visit Offered previously. PERL DEVELOPER: 13:55 2, Full Term 2 [facility] Historical: - Allergies: Bactrim (Hives); Bentyl (Seizures); IV Dye (Rash); NSAIDS (can not take due to gastric bypass)gastric bypas procedure done in 2002; - Home Meds: 1. Latuda 40 mg oral tab 1 tab once daily (Last dose: 11/07/2016 07:00) 2. topiramate 50 mg oral tab (Last dose: 11/07/2016 09:00) 3. Adderall XR 30 mg Oral cp24 1 cap twice a day not taking at this time 4. Valium 10 mg Oral tab states out of valium and adderal , uses them recreationaly and non additional today 5. gabapentin 300 mg Oral cap 3 caps 3 times per day 6. clonidine HCl 0.2 mg Oral tab once daily (Last dose: 11/06/2016) 7. Cipro 500 mg Oral tab 1 tab every 12 hours (Last dose: 11/04/2016) - PMHx: ADHD; Anemia; Anxiety; Depression; Hypoglycemia; insomnia; PTSD; Raynauds; Sciatica; TBI; - PSHx: Cholecystectomy; Tubal ligation; Gastric Bypass; Hysterectomy; - Social history: Smoking status: Patient uses tobacco products, current some day smoker. No barriers to communication noted, The patient speaks fluent Macedonian. - Family history: Not pertinent. - : The pt / caregiver states he / she is not on anticoagulants. Home medication list is obtained from the patient. - Exposure Risk Screening:: None identified. Screenin:18 Screening information is obtained from the patient. Fall risk: No risks identified. ck1 Assistance ADL's: requires no assistance with activities of daily living. Abuse/DV Screen: The patient / caregiver reports he/she is: not in a situation that causes fear, pain or injury. Nutritional screening: No deficits noted. Advance Directives: Currently, there is no health care proxy. home support is adequate. Assessment: 14:34 General: Appears distressed, Behavior is anxious, cooperative. Pain: Location: abdomen ck1 Pain currently is 7 out of 10 on a pain scale. Neurological: Level of Consciousness is awake, alert, obeys commands, Oriented to person, place, time. Cardiovascular: Rhythm is sinus rhythm. Respiratory: Respiratory effort is unlabored, Respiratory pattern is regular, symmetrical. GI: Reports nausea. Derm: Skin is pink, warm & dry. Musculoskeletal: Circulation, motion, and sensation intact Range of motion intact in all extremities. 15:35 General: Appears comfortable, Behavior is cooperative, drowsy. Pain: Location: abdomen ck1 Noted to be quiet/stoic. Neurological: Level of Consciousness is awake, alert, obeys commands, Oriented to person, place, time. Cardiovascular: Rhythm is sinus rhythm. Respiratory: Respiratory effort is unlabored, Respiratory pattern is regular, symmetrical. GI: other tolerating regular diet. Derm: Skin is pink, warm & dry. 16:06 General: Patient assisted to bedside commode. Gait unsteady. reports feeling dizzy. ck1 Assisted back to bed, positioned self for comfort. Will continue to monitor patient. 17:11 General: Appears in no apparent distress, Behavior is cooperative, drowsy. Pain: ck1 Location: back. Neurological: Level of Consciousness is awake, alert, obeys commands, Oriented to person, place, time. Cardiovascular: Rhythm is sinus rhythm. Respiratory: Respiratory effort is even, unlabored, Respiratory pattern is regular, symmetrical. GI: No deficits noted. Derm: Skin is pink, warm & dry. 18:05 General: Attempted to ambulate patient, patient drowsy and gait unsteady at this time. ck1 Dr. Bedolla aware. 18:46 General: Appears in no apparent distress, Behavior is drowsy. Pain: Noted to be ck1 quiet/stoic. Neurological: Level of Consciousness is obeys commands. Cardiovascular: Rhythm is sinus rhythm. Respiratory: Respiratory effort is unlabored, Respiratory pattern is regular, symmetrical. GI: No deficits noted. Derm: Skin is pink, warm & dry. Musculoskeletal: Circulation, motion, and sensation intact Range of motion intact in all extremities. 20:00 Reassessment: Patient appears in no apparent distress at this time. Patient denies pain cf2 at this time. Patient states feeling better. Patient states symptoms have improved. 22:15 General: pt ambulated with assistance at this time. rr even and unlabored.. af2 22:27 Reassessment: Patient appears in no apparent distress at this time. Patient denies pain cf2 at this time. Patient states feeling better. Patient states symptoms have improved. 22:28 General: Patient alert and oriented, states she has an appointment "tomorrow to start cf2 Methadone. I have a problem and i just started shooting up this weekend. I was getting almost 60 pills a day, I've been shopping". 22:31 General: Patient eating snack tray. awaiting disposition. cf2 Social Work Consult: 15:52 Social Work Note: Met pt at bedside regarding opiate addiction. Pt reports being sober ml4 from opiates for the past 2 years, until about 3 months ago. Relapse was triggered by disliking the holidays and some relational problems with daughter who resides in a different state. Additionally, pt reports her best friend 2 wks ago from an OD and pt states, "I just miss her so much." States she initially presented to [facility] for an intake to get back into tx, but was sent to [facility] due to taking 15 tablets of Percocet. Pt states, "I take more than that each day since I suffer from so much pain." She also admits to some Heroin abuse when she is unable to obtain Percocet. States she has significant back and hip pain and requires medication. She adamantly denies ingesting medication as a suicide attempt and continues to deny SI and HI. Referrals for outpt services was given at directed to follow up with [facility] for further tx. Vital Signs: 13:55 BP 122 / 62; Pulse 98; Resp 18; Temp 98.7; Pulse Ox 100% ; Weight 112.49 kg; Height 5 jmk ft. 8 in. (172.72 cm); 14:30 BP 106 / 78 (auto/); ck1 14:34 Pulse 90 MON; Pulse Ox 99% ; ck1 15:00 BP 100 / 62 (auto/); ck1 15:00 Pulse 95 MON; Pulse Ox 99% ; ck1 15:30 BP 96 / 50 (auto/); ck1 15:51 BP 103 / 51 (auto/); ck1 15:52 Pulse 110 MON; Pulse Ox 100% ; ck1 16:00 BP 94 / 50 (auto/); ck1 16:00 BP 89 / 45 (auto/); ck1 16:00 Pulse 110 MON; Pulse Ox 91% ; ck1 16:01 Pulse 106 MON; Pulse Ox 96% ; ck1 16:02 Pulse 105 MON; Pulse Ox 100% ; ck1 16:03 Pulse 106 MON; Pulse Ox 100% ; ck1 16:08 BP 103 / 50 (auto/); ck1 16:38 BP 123 / 58 (auto/); ck1 16:53 BP 116 / 59 (auto/); ck1 17:08 BP 111 / 56 (auto/); ck1 17:09 Pulse 114 MON; Pulse Ox 100% ; ck1 17:10 Pulse 114 MON; Pulse Ox 98% ; ck1 17:23 BP 120 / 58 (auto/); ck1 17:38 BP 113 / 56 (auto/); ck1 17:53 BP 101 / 50 (auto/); ck1 17:53 Pulse 108 MON; Pulse Ox 95% ; ck1 17:57 BP 103 / 55 (auto/); ck1 17:57 Pulse 107 MON; Pulse Ox 95% ; ck1 18:03 BP 129 / 80 (auto/); ck1 18:04 Pulse 108 MON; Pulse Ox 99% ; ck1 18:11 BP 103 / 55; Pulse 107; Resp 16; Temp 99.0(O); Pulse Ox 95% on R/A; hs1 18:36 Pulse 95 MON; Pulse Ox 97% ; ck1 18:36 BP 121 / 56 (auto/); ck1 13:55 Body Mass Index 37.71 (112.49 kg, 172.72 cm) [facility] Vitals: 13:55 Log In Time N/A - ambulance arrival. [facility] ED Course: 13:45 Patient visited by Reta Joe PCA. jlf 13:45 Tonya Alvarez MD is Private Physician. jlf 13:45 Patient moved to Waiting jlf 13:46 Pamela Evans,LUNA is Primary Nurse. jlf 13:46 Patient moved to 3 [facility] 13:49 Triage Initiated jmk 14:00 Acetaminophen Level Sent. jmk 14:00 Basic Metabolic Profile Sent. jmk 14:00 Complete Blood Count Sent. jmk 14:00 Ethyl Alcohol (ethanol) Sent. jmk 14:00 Liver Profile Sent. jmk 14:00 Salicylate Level Sent. jmk 14:00 Thyroid Stimulating Hormone Sent. jmk 14:05 Norma Munguia MD is Attending Physician. sd1 14:07 Patient visited by Norma Munguia MD. sd1 14:18 Inserted saline lock: 20 gauge in right antecubital area and blood collected. The ck1 patient tolerated the procedure well. by LUNA German. 14:19 The patient / caregiver is instructed regarding the plan of care and ED course. ck1 14:33 Patient visited by Pamela Evans RN. ck1 14:33 PT/INR Sent. ck1 14:34 Drug Eval Toxicology ED Only Sent. ck1 15:04 Patient visited by Pamela Evans RN. ck1 15:04 box lunch provided. ck1 15:49 Patient visited by Pamela Evans,LUNA. ck1 16:02 Patient visited by Pamela Evans RN. ck1 16:03 [facility] Payment Agreement was scanned into [employer] and attached to record. dm19 16:33 Patient visited by Pamela Evans RN. ck1 17:02 Patient visited by Reta Joe PCA. jlf 17:12 Patient visited by Pamela Evans RN. ck1 17:12 No procedures done that require assistance. ck1 17:43 Patient visited by Pamela Evans RN. ck1 18:04 Patient visited by Pamela Evans RN. ck1 18:23 Patient visited by Pamela Evans RN. ck1 18:23 ACETAMINOPHEN LEVEL Sent. ck1 18:23 Fingerstick Blood Sugar Sent. ck1 18:35 Patient visited by Pamela Evans RN. ck1 18:46 Patient visited by Pamela Evans RN. ck1 18:51 Primary Nurse role handed off by Pamela Evans RN ck1 19:04 Mary Ellen Zamora RN is Primary Nurse. cf2 19:04 Patient visited by Mary Ellen Zamora RN. cf2 19:28 Attending Physician role handed off by Norma Munguia MD cs11 19:28 Kuldeep Limon DO is Attending Physician. cs11 19:35 Patient visited by Mary Ellen Zamora RN. cf2 20:14 Patient visited by Mary Ellen Zamora RN. cf2 21:12 Patient visited by Mary Ellen Zamora RN. cf2 21:26 ACETAMINOPHEN LEVEL Sent. jlm 21:50 Patient visited by Mary Ellen Zamora RN. cf2 22:16 Patient visited by Olga Phillips RN. af2 Administered Medications: 14:33 Drug: NS 0.9% 1000 ml [sodium chloride 0.9 % intravenous solution] Route: IV; Rate: ck1 bolus; Site: right antecubital; 17:11 Follow up: IV Status: Completed infusion ck1 14:33 Drug: Promethazine 25 mg [promethazine 25 mg/mL injection solution (1 mL)] Route: IVP; ck1 Site: right antecubital; 17:11 Drug: NS 0.9% 1000 ml [sodium chloride 0.9 % intravenous solution] Route: IV; Rate: ck1 bolus; Site: right antecubital; 17:15 Not Given (Duplicate Order): NS 0.9% 1000 ml IV at bolus once ck1 18:35 Drug: D50W 50 ml [dextrose 50 % in water (D50W) intravenous syringe (50 mL)] Route: ck1 IVP; Site: right antecubital; Point of Care Testing: Blood Glucose: 18:15 Blood Glucose: 62 mg/dL; ck1 Ranges: Order Results: Lab Order: Acetaminophen Level; SPEC'M 11/07/16 13:57 Test: ACETAMINOPHEN LEVEL; Value: 20.4; Range: 10.0-30.0; Units: UG/ML; Status: F Lab Order: Basic Metabolic Profile; SPEC'M 11/07/16 13:57 Test: GLUCOSE, FASTING; Value: 46; Range: 70-105; Abnormal: Below low normal; Units: MG/DL; Status: F Test: BLOOD UREA NITROGEN; Value: 12; Range: 7-18; Units: MG/DL; Status: F Test: CREATININE FOR GFR; Value: 1.13; Range: 0.55-1.02; Abnormal: Above high normal; Units: MG/DL; Status: F Test: GLOMERULAR FILTRATION RATE; Value: 57.7; Range: >60; Abnormal: Below low normal; Status: F Test: SODIUM LEVEL; Value: 143; Range: 136-145; Units: MEQ/L; Status: F Test: POTASSIUM SERUM; Value: 3.7; Range: 3.5-5.1; Units: MEQ/L; Status: F Test: CHLORIDE LEVEL; Value: 112; Range: 98-107; Abnormal: Above high normal; Units: MEQ/L; Status: F Test: CARBON DIOXIDE LEVEL; Value: 21; Range: 21-32; Units: MEQ/L; Status: F Test: ANION GAP; Value: 10; Range: 8-16; Units: MEQ/L; Status: F Test: CALCIUM LEVEL; Value: 8.6; Range: 8.5-10.1; Units: MG/DL; Status: F Test Note: ; Units are mL/min/1.73 m2 Chronic Kidney Disease Staging per NKF: Stage I & II GFR >=60 Normal to Mildly Decreased Stage III GFR 30-59 Moderately Decreased Stage IV GFR 15-29 Severely Decreased Stage V GFR <15 Very Little GFR Left ESRD GFR <15 on AIR QUALITY INSTRUMENT SPECIALIST Lab Order: Complete Blood Count; SPEC'M 11/07/16 13:57 Test: WHITE BLOOD COUNT; Value: 8.9; Range: 4.0-10.0; Units: K/mm3; Status: F Test: RED BLOOD COUNT; Value: 3.67; Range: 4.00-5.40; Abnormal: Below low normal; Units: M/mm3; Status: F Test: HEMOGLOBIN; Value: 11.1; Range: 12.0-16.0; Abnormal: Below low normal; Units: g/dl; Status: F Test: HEMATOCRIT; Value: 34.6; Range: 36.0-47.0; Abnormal: Below low normal; Units: %; Status: F Test: MEAN CORPUSCULAR VOLUME; Value: 94.1; Range: 80.0-96.0; Units: fl; Status: F Test: MEAN CORPUSCULAR HEMOGLOBIN; Value: 30.4; Range: 27.0-33.0; Units: pg; Status: F Test: MEAN CORPUSCULAR HGB CONC; Value: 32.2; Range: 32.0-36.5; Units: g/dl; Status: F Test: RED CELL DISTRIBUTION WIDTH; Value: 14.4; Range: 11.5-14.5; Units: %; Status: F Test: PLATELET COUNT, AUTOMATED; Value: 273; Range: 150-450; Units: k/mm3; Status: F Lab Order: Drug Eval Toxicology ED Only; SPEC'M 11/07/16 14:32 Test: AMPHETAMINES LEVEL URINE; Value: POSITIVE; Range: NEGATIVE; Abnormal: Above high normal; Status: F Test: BARBITURATES URINE; Value: NEGATIVE; Range: NEGATIVE; Status: F Test: BENZODIAZEPINES URINE; Value: POSITIVE; Range: NEGATIVE; Abnormal: Above high normal; Status: F Test: CANNABINOIDS URINE; Value: NEGATIVE; Range: NEGATIVE; Status: F Test: COCAINE METABOLITE URINE; Value: NEGATIVE; Range: NEGATIVE; Status: F Test: METHADONE URINE; Value: NEGATIVE; Range: NEGATIVE; Status: F Test: OPIATES URINE; Value: POSITIVE; Range: NEGATIVE; Abnormal: Above high normal; Status: F Test: TRICYCLIC ANTIDEPRESS URINE; Value: NEGATIVE; Range: NEGATIVE; Status: F Test Note: ; ALL PRESUMPTIVE POSITIVE FINDINGS ARE UNCONFIRMED NORMAL VALUES THRESHOLD IN NG/ML AMPHETAMINES 1000 METHAMPHETAMINES 1000 BARBITURATES 300 BENZODIAZEPINES 300 CANNABINOIDS (THC) 50 COCAINE METABOLITE 300 METHADONE 300 OPIATES 300 PHENCYCLIDINE 25 TRICYCLIC ANTIDEPRESSANTS 1000 RESULTS ARE FOR MEDICAL PURPOSES ONLY. ALL URINE SPECIMENS WILL BE SAVED FOR 3 DAYS. IF CONFIRMATION OF A PRESUMPTIVE POSTIVE SCREEN RESULT IS DESIRED, CALL CHEMISTRY ([phone]) AND REQUEST URINE TO BE SENT TO REFERENCE LAB. FOR A LIST OF CLOSELY RELATED COMPOUNDS PLEASE CALL THE LAB. Lab Order: Ethyl Alcohol (ethanol); SPEC'M 11/07/16 13:57 Test: ETHYL ALCOHOL (ETHANOL); Value: < 0.003; Range: 0.000-0.010; Units: %; Status: F Lab Order: Liver Profile; SPEC'M 11/07/16 13:57 Test: AST/SGOT; Value: 28; Range: 15-37; Units: U/L; Status: F Test: ALT/SGPT; Value: 21; Range: 12-78; Units: U/L; Status: F Test: ALKALINE PHOSPHATASE; Value: 35; Range: 45-117; Abnormal: Below low normal; Units: U/L; Status: F Test: BILIRUBIN,TOTAL; Value: 0.3; Range: 0.2-1.0; Units: MG/DL; Status: F Test: BILIRUBIN,DIRECT; Value: 0.1; Range: 0.0-0.2; Units: MG/DL; Status: F Test: TOTAL PROTEIN; Value: 7.8; Range: 6.4-8.2; Units: GM/DL; Status: F Test: ALBUMIN; Value: 3.8; Range: 3.2-5.2; Units: GM/DL; Status: F Test: ALBUMIN/GLOBULIN RATIO; Value: 0.95; Range: 1.00-1.93; Abnormal: Below low normal; Status: F Lab Order: Salicylate Level; SPEC'M 11/07/16 13:57 Test: SALICYLATE LEVEL; Value: < 1.7; Range: 5.0-30.0; Abnormal: Below low normal; Units: MG/DL; Status: F Lab Order: Thyroid Stimulating Hormone; SPEC'11/07/16 13:57 Test: THYROID STIMULATING HORMONE; Value: 2.180; Range: 0.358-3.740; Units: uIU/ML; Status: F Lab Order: PT/INR; [facility] 11/07/16 14:32 Test: PROTHROMBIN TIME; Value: 14.0; Range: 12.3-14.5; Units: SECONDS; Status: F Test: INR; Value: 1.07; Status: F Test Note: ; THERAPUTIC HUMAN INR VALUES INDICATIONS NORMAL RANGES PROPHYLAXIS/TREATMENT OF: VENOUS THROMBOSIS 2.0-3.0 PULMONARY EMBOLISM 2.0-3.0 PREVENTION OF SYSTEMIC EMBOLISM FROM: TISSUE HEART VALVES 2.0-3.0 ACUTE MYOCARDIAL INFARCTION 2.0-3.0 VALVULAR HEART DISEASE 2.0-3.0 ATRIAL FIBRILLATION 2.0-3.0 MECHANICAL VALVES(HIGH RISK) 2.5-3.5 RECURRENT MYOCARDIAL INFARCTION 2.5-3.5 Lab Order: ACETAMINOPHEN LEVEL; [facility] 11/07/16 18:22 Test: ACETAMINOPHEN LEVEL; Value: 8.1; Range: 10.0-30.0; Abnormal: Below low normal; Units: UG/ML; Status: F Lab Order: Fingerstick Blood Sugar; [facility] 11/07/16 18:14 Test: BEDSIDE GLUCOSE; Value: 62; Range: 70-105; Abnormal: Below low normal; Units: MG/DL; Status: F Lab Order: ACETAMINOPHEN LEVEL; [facility] 11/07/16 21:25 Test: ACETAMINOPHEN LEVEL; Value: 6.3; Range: 10.0-30.0; Abnormal: Below low normal; Units: UG/ML; Status: F Lab Order: Fingerstick Blood Sugar; [facility] 11/07/16 22:22 Test: BEDSIDE GLUCOSE; Value: 99; Range: 70-105; Units: MG/DL; Status: F Outcome: 17:12 No special radiology studies were completed. ck1 22:34 Discharge ordered by Provider. cs11 23:11 Discharge Assessment: Patient awake, alert and oriented x 3. No cognitive and/or cf2 functional deficits noted. Patient verbalized understanding of disposition instructions. Patient awake and alert. patient administered narcotics - no. The following High Risk Discharge criteria are identified: None. Condition: stable Condition: improved. Discharge instructions given to patient, significant other, Instructed on discharge instructions, follow up and referral plans. Detox facilites, drug rehab centers at patient's request. Property :Personal belongings accompany Pt. 23:12 Patient left the ED. cf2 Signatures: Norma Munguia MD MD sd1 Nicola Beasley,RN RN Pamela Mathis,RN RN ck1 Gillian Peter, PSA PSA ml4 Monserrat Monson, RN RN hs1 Kuldeep Limon, DO DO cs11 Heath, Jordain, SUBGRADE ROLLER OPERATOR SUBGRADE ROLLER OPERATOR jlf Liane Eugene, Education Rep Unit jl Olga Phillips RN RN af2 Mary Ellen ZamoraRN RN cf2 Yesica Walkerne dm19 Corrections: (The following items were deleted from the chart) 16:04 15:52 Social Work Note: Met pt at bedside regarding opiate addiction. Pt reports being ml4 sober from opiates for the past 2 years, until about 3 months ago. Relapse was triggered by disliking the holidays and some relational problems with daughter who resides in a different state. Additionally, pt reports her best friend 2 wks ago from an OD and pt states, "I just miss her so much." States she initially presented to [facility] for an intake to get back into tx, but was sent to [facility] due to taking 15 tablets of Percocet. Pt states, "I take more than that each day since I suffer from so much pain." She also admits to some Heroin abuse when she is unable to obtain Percocet. She adamantly denies ingesting medication as a suicide attempt and continues to deny SI and HI. Referrals for outpt services was given at directed to follow up with [facility] for further tx. ml4 17:09 15:30 Pulse 101bpm; Monitor; Pulse Ox 53%; ck1 ck1 MTDD
--- NOTE | 2016-11-10 00:12 | EDDOCDS ---
Physician Documentation [facility] Name: Lianne Saldana Age: 35 yrs Sex: Female : 1980 Arrival Date: 11/07/2016 Time: 13:44 Bed 3 Private MD: Tonya Alvarez Disposition: 11/07/16 22:34 Discharged to Home/Self Care. Impression: Opioid dependence with intoxication, Hypoglycemia, unspecified. - Condition is Stable. - Medication Reconciliation, Local Pharmacy Hours form. - Follow up: Private Physician; When: As previously arranged. - Problem is an ongoing problem. - Symptoms have improved. Historical: - Allergies: Bactrim (Hives); Bentyl (Seizures); IV Dye (Rash); NSAIDS (can not take due to gastric bypass)gastric bypas procedure done in 2002; - Home Meds: 1. Latuda 40 mg oral tab 1 tab once daily (Last dose: 11/07/2016 07:00) 2. topiramate 50 mg oral tab (Last dose: 11/07/2016 09:00) 3. Adderall XR 30 mg Oral cp24 1 cap twice a day not taking at this time 4. Valium 10 mg Oral tab states out of valium and adderal , uses them recreationaly and non additional today 5. gabapentin 300 mg Oral cap 3 caps 3 times per day 6. clonidine HCl 0.2 mg Oral tab once daily (Last dose: 11/06/2016) 7. Cipro 500 mg Oral tab 1 tab every 12 hours (Last dose: 11/04/2016) - PMHx: ADHD; Anemia; Anxiety; Depression; Hypoglycemia; insomnia; PTSD; Raynauds; Sciatica; TBI; - PSHx: Cholecystectomy; Tubal ligation; Gastric Bypass; Hysterectomy; - Social history: Smoking status: Patient uses tobacco products, current some day smoker. No barriers to communication noted, The patient speaks fluent [place] Leonean. - Family history: Not pertinent. - : The pt / caregiver states he / she is not on anticoagulants. Home medication list is obtained from the patient. - Exposure Risk Screening:: None identified. 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 8 in. (172.72 cm); 14:30 BP 106 / 78 (auto/); ck1 14:34 Pulse 90 MON; Pulse Ox 99% ; ck1 15:00 BP 100 / 62 (auto/); ck1 15:00 Pulse 95 MON; Pulse Ox 99% ; ck1 15:30 BP 96 / 50 (auto/); ck1 15:51 BP 103 / 51 (auto/); ck1 15:52 Pulse 110 MON; Pulse Ox 100% ; ck1 16:00 BP 94 / 50 (auto/); ck1 16:00 BP 89 / 45 (auto/); ck1 16:00 Pulse 110 MON; Pulse Ox 91% ; ck1 16:01 Pulse 106 MON; Pulse Ox 96% ; ck1 16:02 Pulse 105 MON; Pulse Ox 100% ; ck1 16:03 Pulse 106 MON; Pulse Ox 100% ; ck1 16:08 BP 103 / 50 (auto/); ck1 16:38 BP 123 / 58 (auto/); ck1 16:53 BP 116 / 59 (auto/); ck1 17:08 BP 111 / 56 (auto/); ck1 17:09 Pulse 114 MON; Pulse Ox 100% ; ck1 17:10 Pulse 114 MON; Pulse Ox 98% ; ck1 17:23 BP 120 / 58 (auto/); ck1 17:38 BP 113 / 56 (auto/); ck1 17:53 BP 101 / 50 (auto/); ck1 17:53 Pulse 108 MON; Pulse Ox 95% ; ck1 17:57 BP 103 / 55 (auto/); ck1 17:57 Pulse 107 MON; Pulse Ox 95% ; ck1 18:03 BP 129 / 80 (auto/); ck1 18:04 Pulse 108 MON; Pulse Ox 99% ; ck1 18:11 BP 103 / 55; Pulse 107; Resp 16; Temp 99.0(O); Pulse Ox 95% on R/A; hs1 18:36 Pulse 95 MON; Pulse Ox 97% ; ck1 18:36 BP 121 / 56 (auto/); ck1 13:55 Body Mass Index 37.71 (112.49 kg, 172.72 cm) [facility] MDM: 13:55 Consult PFS/PSA/Agent ordered. sd1 13:55 Consult PFS/PSA/Agent: Patient's case requires discussion with on-call sd1 Psychiatrist ordered. 13:55 PSA/PFS to call Nursing Supervisor Instrument Mechanics, to enter patient data on [place] if patient sd1 involuntarily admitted or transferred for SI or HI ordered. 13:55 Research Librarian/Pulse Ox/q 15 min VS ordered. sd1 13:55 Confirm accurate psychiatric medication list and times of last dosage ordered. sd1 13:55 Detain Pt Until Medically/PFS Cleared ordered. sd1 13:55 IV Saline Lock ordered. sd1 13:57 Acetaminophen Level Ordered. EDMS 13:57 Basic Metabolic Profile Ordered. EDMS 13:57 Complete Blood Count Ordered. EDMS 13:57 Drug Eval Toxicology ED Only Ordered. EDMS 13:57 Ethyl Alcohol (ethanol) Ordered. EDMS 13:57 Liver Profile Ordered. EDMS 13:57 Salicylate Level Ordered. EDMS 13:57 Thyroid Stimulating Hormone Ordered. EDMS 14:12 NS 0.9% 1000 ml IV at bolus once ordered. sd1 14:12 Promethazine 25 mg IVP once; dilute and administer 30-60 minutes ordered. sd1 14:13 PT/INR Ordered. EDMS 14:18 PSA/PFS to call Nursing Supervisor Instrument Mechanics, to enter [place] data [place] if patient ck1 involuntarily admitted or transferred for SI or HI complete. 14:18 Consult PFS/PSA/Agent: Patient's case requires discussion with on-call ck1 Psychiatrist complete. 14:18 Consult PFS/PSA/Agent complete. ck1 15:06 Basic Metabolic Profile Reviewed. sd1 15:06 Complete Blood Count Reviewed. sd1 15:06 Drug Eval Toxicology ED Only Reviewed. sd1 15:06 Liver Profile Reviewed. sd1 15:06 Salicylate Level Reviewed. sd1 15:06 Acetaminophen Level Reviewed. sd1 15:06 Ethyl Alcohol (ethanol) Reviewed. sd1 15:06 Thyroid Stimulating Hormone Reviewed. sd1 15:06 PT/INR Reviewed. sd1 16:03 [facility] [place] Payment Agreement was scanned into [employer] and attached to record. dm19 16:04 Financial registration complete. dm19 17:11 NS 0.9% 1000 ml IV at bolus once ordered. ck1 17:13 NS 0.9% 1000 ml IV at bolus once ordered. sd1 17:55 Misc. Nursing Order ordered. sd1 18:10 Redraw Labs ordered. sd1 18:10 Accucheck ordered. sd1 18:11 Redraw Labs complete. lbd 18:14 ACETAMINOPHEN LEVEL Ordered. EDMS 18:21 Fingerstick Blood Sugar Ordered. EDMS 18:25 D50W 50 ml IVP once; (1 amp) ordered. sd1 19:02 ACETAMINOPHEN LEVEL Reviewed. sd1 19:02 Fingerstick Blood Sugar Reviewed. sd1 19:03 Redraw Acetaminophen (put time in details section) ordered. sd1 19:05 Redraw Acetaminophen (put time in details section) complete. sew 19:06 ACETAMINOPHEN LEVEL Ordered. EDMS 21:20 Ambulate Patient to Assess Patient Safety ordered. cs11 22:13 ACETAMINOPHEN LEVEL Reviewed. cs11 22:14 Accucheck ordered. cs11 22:32 Fingerstick Blood Sugar Ordered. EDMS Point of Care Testing: Blood Glucose: 18:15 Blood Glucose: 62 mg/dL; ck1 Ranges: Administered Medications: 14:33 Drug: NS 0.9% 1000 ml [sodium chloride 0.9 % intravenous solution] Route: IV; Rate: ck1 bolus; Site: right antecubital; 17:11 Follow up: IV Status: Completed infusion ck1 14:33 Drug: Promethazine 25 mg [promethazine 25 mg/mL injection solution (1 mL)] Route: IVP; ck1 Site: right antecubital; 17:11 Drug: NS 0.9% 1000 ml [sodium chloride 0.9 % intravenous solution] Route: IV; Rate: ck1 bolus; Site: right antecubital; 17:15 Not Given (Duplicate Order): NS 0.9% 1000 ml IV at bolus once ck1 18:35 Drug: D50W 50 ml [dextrose 50 % in water (D50W) intravenous syringe (50 mL)] Route: ck1 IVP; Site: right antecubital; Signatures: Dispatcher [employer] EDNY Norma Munguia MD MD sd1 Soni Neil, [employer] Administrator Unit lbd Nicola Beasley RN RN jmk Kim-Ashcraft, Connie, RN RN ck1 Norma Nolan Craig, DO DO cs11 Mary Ellen Zamora RN RN cf2 Suri Walker dm19 The chart was reviewed and I authenticate all verbal orders and agree with the evaluation and treatment provided.Corrections: (The following items were deleted from the chart) 19:02 19:02 Redraw Acetaminophen (put time in details section) ordered. sd1 sd1 Attachments: 16:03 [facility] Payment Agreement dm19 Chart Complete MTDD
--- NOTE | 2016-11-10 00:12 | EDDOCDS ---
Physician Documentation [facility] Name: Lianne Saldana Age: 35 yrs Sex: Female : 1980 Arrival Date: 11/07/2016 Time: 13:44 Bed 3 Private MD: Tonya Alvarez Disposition: 11/07/16 22:34 Discharged to Home/Self Care. Impression: Opioid dependence with intoxication, Hypoglycemia, unspecified. - Condition is Stable. - Medication Reconciliation, Local Pharmacy Hours form. - Follow up: Private Physician; When: As previously arranged. - Problem is an ongoing problem. - Symptoms have improved. Historical: - Allergies: Bactrim (Hives); Bentyl (Seizures); IV Dye (Rash); NSAIDS (can not take due to gastric bypass)gastric bypas procedure done in 2002; - Home Meds: 1. Latuda 40 mg oral tab 1 tab once daily (Last dose: 11/07/2016 07:00) 2. topiramate 50 mg oral tab (Last dose: 11/07/2016 09:00) 3. Adderall XR 30 mg Oral cp24 1 cap twice a day not taking at this time 4. Valium 10 mg Oral tab states out of valium and adderal , uses them recreationaly and non additional today 5. gabapentin 300 mg Oral cap 3 caps 3 times per day 6. clonidine HCl 0.2 mg Oral tab once daily (Last dose: 11/06/2016) 7. Cipro 500 mg Oral tab 1 tab every 12 hours (Last dose: 11/04/2016) - PMHx: ADHD; Anemia; Anxiety; Depression; Hypoglycemia; insomnia; PTSD; Raynauds; Sciatica; TBI; - PSHx: Cholecystectomy; Tubal ligation; Gastric Bypass; Hysterectomy; - Social history: Smoking status: Patient uses tobacco products, current some day smoker. No barriers to communication noted, The patient speaks fluent Samoan. - Family history: Not pertinent. - : The pt / caregiver states he / she is not on anticoagulants. Home medication list is obtained from the patient. - Exposure Risk Screening:: None identified. 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 8 in. (172.72 cm); 14:30 BP 106 / 78 (auto/); ck1 14:34 Pulse 90 MON; Pulse Ox 99% ; ck1 15:00 BP 100 / 62 (auto/); ck1 15:00 Pulse 95 MON; Pulse Ox 99% ; ck1 15:30 BP 96 / 50 (auto/); ck1 15:51 BP 103 / 51 (auto/); ck1 15:52 Pulse 110 MON; Pulse Ox 100% ; ck1 16:00 BP 94 / 50 (auto/); ck1 16:00 BP 89 / 45 (auto/); ck1 16:00 Pulse 110 MON; Pulse Ox 91% ; ck1 16:01 Pulse 106 MON; Pulse Ox 96% ; ck1 16:02 Pulse 105 MON; Pulse Ox 100% ; ck1 16:03 Pulse 106 MON; Pulse Ox 100% ; ck1 16:08 BP 103 / 50 (auto/); ck1 16:38 BP 123 / 58 (auto/); ck1 16:53 BP 116 / 59 (auto/); ck1 17:08 BP 111 / 56 (auto/); ck1 17:09 Pulse 114 MON; Pulse Ox 100% ; ck1 17:10 Pulse 114 MON; Pulse Ox 98% ; ck1 17:23 BP 120 / 58 (auto/); ck1 17:38 BP 113 / 56 (auto/); ck1 17:53 BP 101 / 50 (auto/); ck1 17:53 Pulse 108 MON; Pulse Ox 95% ; ck1 17:57 BP 103 / 55 (auto/); ck1 17:57 Pulse 107 MON; Pulse Ox 95% ; ck1 18:03 BP 129 / 80 (auto/); ck1 18:04 Pulse 108 MON; Pulse Ox 99% ; ck1 18:11 BP 103 / 55; Pulse 107; Resp 16; Temp 99.0(O); Pulse Ox 95% on R/A; hs1 18:36 Pulse 95 MON; Pulse Ox 97% ; ck1 18:36 BP 121 / 56 (auto/); ck1 13:55 Body Mass Index 37.71 (112.49 kg, 172.72 cm) [facility] MDM: 13:55 Consult PFS/PSA/Wringer Operator ordered. sd1 13:55 Consult PFS/PSA/Wringer Operator: Patient's case requires discussion with on-call sd1 Psychiatrist ordered. 13:55 PSA/PFS to call Nursing Online Advertising Director, to enter [place] data [place] if patient sd1 involuntarily admitted or transferred for SI or HI ordered. 13:55 Surgeon Assistant/Pulse Ox/q 15 min VS ordered. sd1 13:55 Confirm accurate psychiatric medication list and times of last dosage ordered. sd1 13:55 Detain Pt Until Medically/PFS Cleared ordered. sd1 13:55 IV Saline Lock ordered. sd1 13:57 Acetaminophen Level Ordered. EDMS 13:57 Basic Metabolic Profile Ordered. EDMS 13:57 Complete Blood Count Ordered. EDMS 13:57 Drug Eval Toxicology ED Only Ordered. EDMS 13:57 Ethyl Alcohol (ethanol) Ordered. EDMS 13:57 Liver Profile Ordered. EDMS 13:57 Salicylate Level Ordered. EDMS 13:57 Thyroid Stimulating Hormone Ordered. EDMS 14:12 NS 0.9% 1000 ml IV at bolus once ordered. sd1 14:12 Promethazine 25 mg IVP once; dilute and administer 30-60 minutes ordered. sd1 14:13 PT/INR Ordered. EDMS 14:18 PSA/PFS to call Nursing Online Advertising Director, to enter [place] data [place] if patient ck1 involuntarily admitted or transferred for SI or HI complete. 14:18 Consult PFS/PSA/Wringer Operator: Patient's case requires discussion with on-call ck1 Psychiatrist complete. 14:18 Consult PFS/PSA/Wringer Operator complete. ck1 15:06 Basic Metabolic Profile Reviewed. sd1 15:06 Complete Blood Count Reviewed. sd1 15:06 Drug Eval Toxicology ED Only Reviewed. sd1 15:06 Liver Profile Reviewed. sd1 15:06 Salicylate Level Reviewed. sd1 15:06 Acetaminophen Level Reviewed. sd1 15:06 Ethyl Alcohol (ethanol) Reviewed. sd1 15:06 Thyroid Stimulating Hormone Reviewed. sd1 15:06 PT/INR Reviewed. sd1 16:03 [facility] [place] Payment Agreement was scanned into [employer] and attached to record. dm19 16:04 Financial registration complete. dm19 17:11 NS 0.9% 1000 ml IV at bolus once ordered. ck1 17:13 NS 0.9% 1000 ml IV at bolus once ordered. sd1 17:55 Misc. Nursing Order ordered. sd1 18:10 Redraw Labs ordered. sd1 18:10 Accucheck ordered. sd1 18:11 Redraw Labs complete. lbd 18:14 ACETAMINOPHEN LEVEL Ordered. EDMS 18:21 Fingerstick Blood Sugar Ordered. EDMS 18:25 D50W 50 ml IVP once; (1 amp) ordered. sd1 19:02 ACETAMINOPHEN LEVEL Reviewed. sd1 19:02 Fingerstick Blood Sugar Reviewed. sd1 19:03 Redraw Acetaminophen (put time in details section) ordered. sd1 19:05 Redraw Acetaminophen (put time in details section) complete. sew 19:06 ACETAMINOPHEN LEVEL Ordered. EDMS 21:20 Ambulate Patient to Assess Patient Safety ordered. cs11 22:13 ACETAMINOPHEN LEVEL Reviewed. cs11 22:14 Accucheck ordered. cs11 22:32 Fingerstick Blood Sugar Ordered. EDMS Point of Care Testing: Blood Glucose: 18:15 Blood Glucose: 62 mg/dL; ck1 Ranges: Administered Medications: 14:33 Drug: NS 0.9% 1000 ml [sodium chloride 0.9 % intravenous solution] Route: IV; Rate: ck1 bolus; Site: right antecubital; 17:11 Follow up: IV Status: Completed infusion ck1 14:33 Drug: Promethazine 25 mg [promethazine 25 mg/mL injection solution (1 mL)] Route: IVP; ck1 Site: right antecubital; 17:11 Drug: NS 0.9% 1000 ml [sodium chloride 0.9 % intravenous solution] Route: IV; Rate: ck1 bolus; Site: right antecubital; 17:15 Not Given (Duplicate Order): NS 0.9% 1000 ml IV at bolus once ck1 18:35 Drug: D50W 50 ml [dextrose 50 % in water (D50W) intravenous syringe (50 mL)] Route: ck1 IVP; Site: right antecubital; Signatures: Dispatcher [employer] EDMD Norma Munguia MD MD sd1 Soni Neil, Dietitian Teaching Unit lbd Nicola Beasley RN RN jmk Kim-Ashcraft, Connie, RN RN ck1 Norma Nolan Craig, DO DO cs11 Mary Ellen Zamora RN RN cf2 Suri Walker dm19 The chart was reviewed and I authenticate all verbal orders and agree with the evaluation and treatment provided.Corrections: (The following items were deleted from the chart) 19:02 19:02 Redraw Acetaminophen (put time in details section) ordered. sd1 sd1 Attachments: 16:03 [facility] Payment Agreement dm19 Chart Complete MTDD
--- NOTE | 2016-11-10 00:13 | EDDOCDS ---
Nurse's Notes [facility] Name: Lianne Saldana Age: 35 yrs Sex: Female : 1980 Arrival Date: 11/07/2016 Time: 13:44 Bed 3 Private MD: Tonya Alvarez Diagnosis: Opioid dependence with intoxication;Hypoglycemia, unspecified Presentation: 11/07 13:46 Presenting complaint: Patient states: states I am going through withdrawals right now. jmk + back pain . and admits to taking 15 Percocet today and has not yet taken her 2nd dose for today. uses heroin, oxy Adderall gabapentin and anything else she can get her hands on. Adult Sepsis Screening: The patient does not have new or worsening altered mentation. Patient's respiratory rate is less than 22. Systolic blood pressure is greater than 100. Patient has a qSOFA score of 0- Negative Sepsis Screen. Suicide/Homicide risk assessment- the patient denies having any suicidal and/or homicidal ideations and does not present with any other emotional, behavioral or mental health complaints. Status: The patient is a dependent. Transition of care: patient was not received from another setting of care. 13:46 Acuity: KRYS Level 3 [facility] 13:46 Method Of Arrival: Ambulance [facility] Triage Assessment: 13:55 General: Appears alert and cooperative. responses slightly slurred. HIV screening [facility] for this visit Offered previously. 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 Latuda 40 mg oral tab 1 tab once daily (Last dose: 11/07/2016 07:00) 2. topiramate 50 mg oral tab (Last dose: 11/07/2016 09:00) 3. Adderall XR 30 mg Oral cp24 1 cap twice a day not taking at this time 4. Valium 10 mg Oral tab states out of valium and adderal , uses them recreationaly and non additional today 5. gabapentin 300 mg Oral cap 3 caps 3 times per day 6. clonidine HCl 0.2 mg Oral tab once daily (Last dose: 11/06/2016) 7. Cipro 500 mg Oral tab 1 tab every 12 hours (Last dose: 11/04/2016) - PMHx: ADHD; Anemia; Anxiety; Depression; Hypoglycemia; insomnia; PTSD; Raynauds; Sciatica; TBI; - PSHx: Cholecystectomy; Tubal ligation; Gastric Bypass; Hysterectomy; - Social history: Smoking status: Patient uses tobacco products, current some day smoker. No barriers to communication noted, The patient speaks fluent Lao. - Family history: Not pertinent. - : The pt / caregiver states he / she is not on anticoagulants. Home medication list is obtained from the patient. - Exposure Risk Screening:: None identified. Screenin:18 Screening information is obtained from the patient. Fall risk: No risks identified. ck1 Assistance ADL's: requires no assistance with activities of daily living. Abuse/DV Screen: The patient / caregiver reports he/she is: not in a situation that causes fear, pain or injury. Nutritional screening: No deficits noted. Advance Directives: Currently, there is no health care proxy. home support is adequate. Assessment: 14:34 General: Appears distressed, Behavior is anxious, cooperative. Pain: Location: abdomen ck1 Pain currently is 7 out of 10 on a pain scale. Neurological: Level of Consciousness is awake, alert, obeys commands, Oriented to person, place, time. Cardiovascular: Rhythm is sinus rhythm. Respiratory: Respiratory effort is unlabored, Respiratory pattern is regular, symmetrical. GI: Reports nausea. Derm: Skin is pink, warm & dry. Musculoskeletal: Circulation, motion, and sensation intact Range of motion intact in all extremities. 15:35 General: Appears comfortable, Behavior is cooperative, drowsy. Pain: Location: abdomen ck1 Noted to be quiet/stoic. Neurological: Level of Consciousness is awake, alert, obeys commands, Oriented to person, place, time. Cardiovascular: Rhythm is sinus rhythm. Respiratory: Respiratory effort is unlabored, Respiratory pattern is regular, symmetrical. GI: other tolerating regular diet. Derm: Skin is pink, warm & dry. 16:06 General: Patient assisted to bedside commode. Gait unsteady. reports feeling dizzy. ck1 Assisted back to bed, positioned self for comfort. Will continue to monitor patient. 17:11 General: Appears in no apparent distress, Behavior is cooperative, drowsy. Pain: ck1 Location: back. Neurological: Level of Consciousness is awake, alert, obeys commands, Oriented to person, place, time. Cardiovascular: Rhythm is sinus rhythm. Respiratory: Respiratory effort is even, unlabored, Respiratory pattern is regular, symmetrical. GI: No deficits noted. Derm: Skin is pink, warm & dry. 18:05 General: Attempted to ambulate patient, patient drowsy and gait unsteady at this time. ck1 Dr. Bedolla aware. 18:46 General: Appears in no apparent distress, Behavior is drowsy. Pain: Noted to be ck1 quiet/stoic. Neurological: Level of Consciousness is obeys commands. Cardiovascular: Rhythm is sinus rhythm. Respiratory: Respiratory effort is unlabored, Respiratory pattern is regular, symmetrical. GI: No deficits noted. Derm: Skin is pink, warm & dry. Musculoskeletal: Circulation, motion, and sensation intact Range of motion intact in all extremities. 20:00 Reassessment: Patient appears in no apparent distress at this time. Patient denies pain cf2 at this time. Patient states feeling better. Patient states symptoms have improved. 22:15 General: pt ambulated with assistance at this time. rr even and unlabored.. af2 22:27 Reassessment: Patient appears in no apparent distress at this time. Patient denies pain cf2 at this time. Patient states feeling better. Patient states symptoms have improved. 22:28 General: Patient alert and oriented, states she has an appointment "tomorrow to start cf2 Methadone. I have a problem and i just started shooting up this weekend. I was getting almost 60 pills a day, I've been shopping". 22:31 General: Patient eating snack tray. awaiting disposition. cf2 Social Work Consult: 15:52 Social Work Note: Met pt at bedside regarding opiate addiction. Pt reports being sober ml4 from opiates for the past 2 years, until about 3 months ago. Relapse was triggered by disliking the holidays and some relational problems with daughter who resides in a different state. Additionally, pt reports her best friend 2 wks ago from an OD and pt states, "I just miss her so much." States she initially presented to [facility] for an intake to get back into tx, but was sent to [facility] due to taking 15 tablets of Percocet. Pt states, "I take more than that each day since I suffer from so much pain." She also admits to some Heroin abuse when she is unable to obtain Percocet. States she has significant back and hip pain and requires medication. She adamantly denies ingesting medication as a suicide attempt and continues to deny SI and HI. Referrals for outpt services was given at directed to follow up with [facility] for further tx. Vital Signs: 13:55 BP 122 / 62; Pulse 98; Resp 18; Temp 98.7; Pulse Ox 100% ; Weight 112.49 kg; Height 5 jmk ft. 8 in. (172.72 cm); 14:30 BP 106 / 78 (auto/); ck1 14:34 Pulse 90 MON; Pulse Ox 99% ; ck1 15:00 BP 100 / 62 (auto/); ck1 15:00 Pulse 95 MON; Pulse Ox 99% ; ck1 15:30 BP 96 / 50 (auto/); ck1 15:51 BP 103 / 51 (auto/); ck1 15:52 Pulse 110 MON; Pulse Ox 100% ; ck1 16:00 BP 94 / 50 (auto/); ck1 16:00 BP 89 / 45 (auto/); ck1 16:00 Pulse 110 MON; Pulse Ox 91% ; ck1 16:01 Pulse 106 MON; Pulse Ox 96% ; ck1 16:02 Pulse 105 MON; Pulse Ox 100% ; ck1 16:03 Pulse 106 MON; Pulse Ox 100% ; ck1 16:08 BP 103 / 50 (auto/); ck1 16:38 BP 123 / 58 (auto/); ck1 16:53 BP 116 / 59 (auto/); ck1 17:08 BP 111 / 56 (auto/); ck1 17:09 Pulse 114 MON; Pulse Ox 100% ; ck1 17:10 Pulse 114 MON; Pulse Ox 98% ; ck1 17:23 BP 120 / 58 (auto/); ck1 17:38 BP 113 / 56 (auto/); ck1 17:53 BP 101 / 50 (auto/); ck1 17:53 Pulse 108 MON; Pulse Ox 95% ; ck1 17:57 BP 103 / 55 (auto/); ck1 17:57 Pulse 107 MON; Pulse Ox 95% ; ck1 18:03 BP 129 / 80 (auto/); ck1 18:04 Pulse 108 MON; Pulse Ox 99% ; ck1 18:11 BP 103 / 55; Pulse 107; Resp 16; Temp 99.0(O); Pulse Ox 95% on R/A; hs1 18:36 Pulse 95 MON; Pulse Ox 97% ; ck1 18:36 BP 121 / 56 (auto/); ck1 13:55 Body Mass Index 37.71 (112.49 kg, 172.72 cm) [facility] Vitals: 13:55 Log In Time N/A - ambulance arrival. [facility] ED Course: 13:45 Patient visited by Reta Joe PCA. jlf 13:45 Tonya Alvarez MD is Private Physician. jlf 13:45 Patient moved to Waiting jlf 13:46 Pamela Evans,LUNA is Primary Nurse. jlf 13:46 Patient moved to 3 [facility] 13:49 Triage Initiated jmk 14:00 Acetaminophen Level Sent. jmk 14:00 Basic Metabolic Profile Sent. jmk 14:00 Complete Blood Count Sent. jmk 14:00 Ethyl Alcohol (ethanol) Sent. jmk 14:00 Liver Profile Sent. jmk 14:00 Salicylate Level Sent. jmk 14:00 Thyroid Stimulating Hormone Sent. jmk 14:05 Norma Munguia MD is Attending Physician. sd1 14:07 Patient visited by Norma Munguia MD. sd1 14:18 Inserted saline lock: 20 gauge in right antecubital area and blood collected. The ck1 patient tolerated the procedure well. by LUNA German. 14:19 The patient / caregiver is instructed regarding the plan of care and ED course. ck1 14:33 Patient visited by Pamela Evans RN. ck1 14:33 PT/INR Sent. ck1 14:34 Drug Eval Toxicology ED Only Sent. ck1 15:04 Patient visited by Pamela Evans RN. ck1 15:04 box lunch provided. ck1 15:49 Patient visited by Pamela Evans,LUNA. ck1 16:02 Patient visited by Pamela Evans RN. ck1 16:03 [facility] Payment Agreement was scanned into Frequent Browser and attached to record. dm19 16:33 Patient visited by Pamela Evans RN. ck1 17:02 Patient visited by Reta Joe PCA. jlf 17:12 Patient visited by Pamela Evans RN. ck1 17:12 No procedures done that require assistance. ck1 17:43 Patient visited by Pamela Evans RN. ck1 18:04 Patient visited by Pamela Evans RN. ck1 18:23 Patient visited by Pamela Evans RN. ck1 18:23 ACETAMINOPHEN LEVEL Sent. ck1 18:23 Fingerstick Blood Sugar Sent. ck1 18:35 Patient visited by Pamela Evans RN. ck1 18:46 Patient visited by Pamela Evans RN. ck1 18:51 Primary Nurse role handed off by Pamela Evans RN ck1 19:04 Mary Ellen Zamora RN is Primary Nurse. cf2 19:04 Patient visited by Mary Ellen Zamora RN. cf2 19:28 Attending Physician role handed off by Norma Munguia MD cs11 19:28 Kuldeep Limon DO is Attending Physician. cs11 19:35 Patient visited by Mary Ellen Zamora RN. cf2 20:14 Patient visited by Mary Ellen Zamora RN. cf2 21:12 Patient visited by Mary Ellen Zamora RN. cf2 21:26 ACETAMINOPHEN LEVEL Sent. jlm 21:50 Patient visited by Mary Ellen Zamora RN. cf2 22:16 Patient visited by Olga Phillips RN. af2 Administered Medications: 14:33 Drug: NS 0.9% 1000 ml [sodium chloride 0.9 % intravenous solution] Route: IV; Rate: ck1 bolus; Site: right antecubital; 17:11 Follow up: IV Status: Completed infusion ck1 14:33 Drug: Promethazine 25 mg [promethazine 25 mg/mL injection solution (1 mL)] Route: IVP; ck1 Site: right antecubital; 17:11 Drug: NS 0.9% 1000 ml [sodium chloride 0.9 % intravenous solution] Route: IV; Rate: ck1 bolus; Site: right antecubital; 17:15 Not Given (Duplicate Order): NS 0.9% 1000 ml IV at bolus once ck1 18:35 Drug: D50W 50 ml [dextrose 50 % in water (D50W) intravenous syringe (50 mL)] Route: ck1 IVP; Site: right antecubital; Point of Care Testing: Blood Glucose: 18:15 Blood Glucose: 62 mg/dL; ck1 Ranges: Order Results: Lab Order: Acetaminophen Level; SPEC'M 11/07/16 13:57 Test: ACETAMINOPHEN LEVEL; Value: 20.4; Range: 10.0-30.0; Units: UG/ML; Status: F Lab Order: Basic Metabolic Profile; SPEC'M 11/07/16 13:57 Test: GLUCOSE, FASTING; Value: 46; Range: 70-105; Abnormal: Below low normal; Units: MG/DL; Status: F Test: BLOOD UREA NITROGEN; Value: 12; Range: 7-18; Units: MG/DL; Status: F Test: CREATININE FOR GFR; Value: 1.13; Range: 0.55-1.02; Abnormal: Above high normal; Units: MG/DL; Status: F Test: GLOMERULAR FILTRATION RATE; Value: 57.7; Range: >60; Abnormal: Below low normal; Status: F Test: SODIUM LEVEL; Value: 143; Range: 136-145; Units: MEQ/L; Status: F Test: POTASSIUM SERUM; Value: 3.7; Range: 3.5-5.1; Units: MEQ/L; Status: F Test: CHLORIDE LEVEL; Value: 112; Range: 98-107; Abnormal: Above high normal; Units: MEQ/L; Status: F Test: CARBON DIOXIDE LEVEL; Value: 21; Range: 21-32; Units: MEQ/L; Status: F Test: ANION GAP; Value: 10; Range: 8-16; Units: MEQ/L; Status: F Test: CALCIUM LEVEL; Value: 8.6; Range: 8.5-10.1; Units: MG/DL; Status: F Test Note: ; Units are mL/min/1.73 m2 Chronic Kidney Disease Staging per NKF: Stage I & II GFR >=60 Normal to Mildly Decreased Stage III GFR 30-59 Moderately Decreased Stage IV GFR 15-29 Severely Decreased Stage V GFR <15 Very Little GFR Left ESRD GFR <15 on WELDING TECHNICIAN Lab Order: Complete Blood Count; SPEC'M 11/07/16 13:57 Test: WHITE BLOOD COUNT; Value: 8.9; Range: 4.0-10.0; Units: K/mm3; Status: F Test: RED BLOOD COUNT; Value: 3.67; Range: 4.00-5.40; Abnormal: Below low normal; Units: M/mm3; Status: F Test: HEMOGLOBIN; Value: 11.1; Range: 12.0-16.0; Abnormal: Below low normal; Units: g/dl; Status: F Test: HEMATOCRIT; Value: 34.6; Range: 36.0-47.0; Abnormal: Below low normal; Units: %; Status: F Test: MEAN CORPUSCULAR VOLUME; Value: 94.1; Range: 80.0-96.0; Units: fl; Status: F Test: MEAN CORPUSCULAR HEMOGLOBIN; Value: 30.4; Range: 27.0-33.0; Units: pg; Status: F Test: MEAN CORPUSCULAR HGB CONC; Value: 32.2; Range: 32.0-36.5; Units: g/dl; Status: F Test: RED CELL DISTRIBUTION WIDTH; Value: 14.4; Range: 11.5-14.5; Units: %; Status: F Test: PLATELET COUNT, AUTOMATED; Value: 273; Range: 150-450; Units: k/mm3; Status: F Lab Order: Drug Eval Toxicology ED Only; SPEC'M 11/07/16 14:32 Test: AMPHETAMINES LEVEL URINE; Value: POSITIVE; Range: NEGATIVE; Abnormal: Above high normal; Status: F Test: BARBITURATES URINE; Value: NEGATIVE; Range: NEGATIVE; Status: F Test: BENZODIAZEPINES URINE; Value: POSITIVE; Range: NEGATIVE; Abnormal: Above high normal; Status: F Test: CANNABINOIDS URINE; Value: NEGATIVE; Range: NEGATIVE; Status: F Test: COCAINE METABOLITE URINE; Value: NEGATIVE; Range: NEGATIVE; Status: F Test: METHADONE URINE; Value: NEGATIVE; Range: NEGATIVE; Status: F Test: OPIATES URINE; Value: POSITIVE; Range: NEGATIVE; Abnormal: Above high normal; Status: F Test: TRICYCLIC ANTIDEPRESS URINE; Value: NEGATIVE; Range: NEGATIVE; Status: F Test Note: ; ALL PRESUMPTIVE POSITIVE FINDINGS ARE UNCONFIRMED NORMAL VALUES THRESHOLD IN NG/ML AMPHETAMINES 1000 METHAMPHETAMINES 1000 BARBITURATES 300 BENZODIAZEPINES 300 CANNABINOIDS (THC) 50 COCAINE METABOLITE 300 METHADONE 300 OPIATES 300 PHENCYCLIDINE 25 TRICYCLIC ANTIDEPRESSANTS 1000 RESULTS ARE FOR MEDICAL PURPOSES ONLY. ALL URINE SPECIMENS WILL BE SAVED FOR 3 DAYS. IF CONFIRMATION OF A PRESUMPTIVE POSTIVE SCREEN RESULT IS DESIRED, CALL CHEMISTRY ([phone]) AND REQUEST URINE TO BE SENT TO REFERENCE LAB. FOR A LIST OF CLOSELY RELATED COMPOUNDS PLEASE CALL THE LAB. Lab Order: Ethyl Alcohol (ethanol); SPEC'M 11/07/16 13:57 Test: ETHYL ALCOHOL (ETHANOL); Value: < 0.003; Range: 0.000-0.010; Units: %; Status: F Lab Order: Liver Profile; SPEC'M 11/07/16 13:57 Test: AST/SGOT; Value: 28; Range: 15-37; Units: U/L; Status: F Test: ALT/SGPT; Value: 21; Range: 12-78; Units: U/L; Status: F Test: ALKALINE PHOSPHATASE; Value: 35; Range: 45-117; Abnormal: Below low normal; Units: U/L; Status: F Test: BILIRUBIN,TOTAL; Value: 0.3; Range: 0.2-1.0; Units: MG/DL; Status: F Test: BILIRUBIN,DIRECT; Value: 0.1; Range: 0.0-0.2; Units: MG/DL; Status: F Test: TOTAL PROTEIN; Value: 7.8; Range: 6.4-8.2; Units: GM/DL; Status: F Test: ALBUMIN; Value: 3.8; Range: 3.2-5.2; Units: GM/DL; Status: F Test: ALBUMIN/GLOBULIN RATIO; Value: 0.95; Range: 1.00-1.93; Abnormal: Below low normal; Status: F Lab Order: Salicylate Level; SPEC'M 11/07/16 13:57 Test: SALICYLATE LEVEL; Value: < 1.7; Range: 5.0-30.0; Abnormal: Below low normal; Units: MG/DL; Status: F Lab Order: Thyroid Stimulating Hormone; SPEC'11/07/16 13:57 Test: THYROID STIMULATING HORMONE; Value: 2.180; Range: 0.358-3.740; Units: uIU/ML; Status: F Lab Order: PT/INR; [facility] 11/07/16 14:32 Test: PROTHROMBIN TIME; Value: 14.0; Range: 12.3-14.5; Units: SECONDS; Status: F Test: INR; Value: 1.07; Status: F Test Note: ; THERAPUTIC HUMAN INR VALUES INDICATIONS NORMAL RANGES PROPHYLAXIS/TREATMENT OF: VENOUS THROMBOSIS 2.0-3.0 PULMONARY EMBOLISM 2.0-3.0 PREVENTION OF SYSTEMIC EMBOLISM FROM: TISSUE HEART VALVES 2.0-3.0 ACUTE MYOCARDIAL INFARCTION 2.0-3.0 VALVULAR HEART DISEASE 2.0-3.0 ATRIAL FIBRILLATION 2.0-3.0 MECHANICAL VALVES(HIGH RISK) 2.5-3.5 RECURRENT MYOCARDIAL INFARCTION 2.5-3.5 Lab Order: ACETAMINOPHEN LEVEL; [facility] 11/07/16 18:22 Test: ACETAMINOPHEN LEVEL; Value: 8.1; Range: 10.0-30.0; Abnormal: Below low normal; Units: UG/ML; Status: F Lab Order: Fingerstick Blood Sugar; [facility] 11/07/16 18:14 Test: BEDSIDE GLUCOSE; Value: 62; Range: 70-105; Abnormal: Below low normal; Units: MG/DL; Status: F Lab Order: ACETAMINOPHEN LEVEL; [facility] 11/07/16 21:25 Test: ACETAMINOPHEN LEVEL; Value: 6.3; Range: 10.0-30.0; Abnormal: Below low normal; Units: UG/ML; Status: F Lab Order: Fingerstick Blood Sugar; [facility] 11/07/16 22:22 Test: BEDSIDE GLUCOSE; Value: 99; Range: 70-105; Units: MG/DL; Status: F Outcome: 17:12 No special radiology studies were completed. ck1 22:34 Discharge ordered by Provider. cs11 23:11 Discharge Assessment: Patient awake, alert and oriented x 3. No cognitive and/or cf2 functional deficits noted. Patient verbalized understanding of disposition instructions. Patient awake and alert. patient administered narcotics - no. The following High Risk Discharge criteria are identified: None. Condition: stable Condition: improved. Discharge instructions given to patient, significant other, Instructed on discharge instructions, follow up and referral plans. Detox facilites, drug rehab centers at patient's request. Property :Personal belongings accompany Pt. 23:12 Patient left the ED. cf2 Signatures: Norma Munguia MD MD sd1 Nicola Beasley,RN RN Pamela Mathis,RN RN ck1 Gillian Peter, PSA PSA ml4 Monserrat Monson, RN RN hs1 Kuldeep Limon, DO DO cs11 Heath, Jordain, CHIP LOFT WORKER CHIP LOFT WORKER jlf Liane Eugene, Emissions Engineer Unit jl Olga Phillips RN RN af2 Mary Ellen ZamoraRN RN cf2 Yesica Walkerne dm19 Corrections: (The following items were deleted from the chart) 16:04 15:52 Social Work Note: Met pt at bedside regarding opiate addiction. Pt reports being ml4 sober from opiates for the past 2 years, until about 3 months ago. Relapse was triggered by disliking the holidays and some relational problems with daughter who resides in a different state. Additionally, pt reports her best friend 2 wks ago from an OD and pt states, "I just miss her so much." States she initially presented to [facility] for an intake to get back into tx, but was sent to [facility] due to taking 15 tablets of Percocet. Pt states, "I take more than that each day since I suffer from so much pain." She also admits to some Heroin abuse when she is unable to obtain Percocet. She adamantly denies ingesting medication as a suicide attempt and continues to deny SI and HI. Referrals for outpt services was given at directed to follow up with [facility] for further tx. ml4 17:09 15:30 Pulse 101bpm; Monitor; Pulse Ox 53%; ck1 ck1 Chart Complete MTDD
--- NOTE | 2016-11-11 14:57 | EDDOCDS ---
Nurse's Notes [facility] Name: Lianne Saldana Age: 35 yrs Sex: Female : 1980 Arrival Date: 11/07/2016 Time: 13:44 Bed 3 Private MD: Tonya Alvarez Diagnosis: Opioid dependence with intoxication;Hypoglycemia, unspecified Presentation: 11/07 13:46 Presenting complaint: Patient states: states I am going through withdrawals right now. jmk + back pain . and admits to taking 15 Percocet today and has not yet taken her 2nd dose for today. uses heroin, oxy Adderall gabapentin and anything else she can get her hands on. Adult Sepsis Screening: The patient does not have new or worsening altered mentation. Patient's respiratory rate is less than 22. Systolic blood pressure is greater than 100. Patient has a qSOFA score of 0- Negative Sepsis Screen. Suicide/Homicide risk assessment- the patient denies having any suicidal and/or homicidal ideations and does not present with any other emotional, behavioral or mental health complaints. Status: The patient is a dependent. Transition of care: patient was not received from another setting of care. 13:46 Acuity: KRYS Level 3 [facility] 13:46 Method Of Arrival: Ambulance [facility] Triage Assessment: 13:55 General: Appears alert and cooperative. responses slightly slurred. HIV screening [facility] for this visit Offered previously. 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 Latuda 40 mg oral tab 1 tab once daily (Last dose: 11/07/2016 07:00) 2. topiramate 50 mg oral tab (Last dose: 11/07/2016 09:00) 3. Adderall XR 30 mg Oral cp24 1 cap twice a day not taking at this time 4. Valium 10 mg Oral tab states out of valium and adderal , uses them recreationaly and non additional today 5. gabapentin 300 mg Oral cap 3 caps 3 times per day 6. clonidine HCl 0.2 mg Oral tab once daily (Last dose: 11/06/2016) 7. Cipro 500 mg Oral tab 1 tab every 12 hours (Last dose: 11/04/2016) - PMHx: ADHD; Anemia; Anxiety; Depression; Hypoglycemia; insomnia; PTSD; Raynauds; Sciatica; TBI; - PSHx: Cholecystectomy; Tubal ligation; Gastric Bypass; Hysterectomy; - Social history: Smoking status: Patient uses tobacco products, current some day smoker. No barriers to communication noted, The patient speaks fluent Maori. - Family history: Not pertinent. - : The pt / caregiver states he / she is not on anticoagulants. Home medication list is obtained from the patient. - Exposure Risk Screening:: None identified. Screenin:18 Screening information is obtained from the patient. Fall risk: No risks identified. ck1 Assistance ADL's: requires no assistance with activities of daily living. Abuse/DV Screen: The patient / caregiver reports he/she is: not in a situation that causes fear, pain or injury. Nutritional screening: No deficits noted. Advance Directives: Currently, there is no health care proxy. home support is adequate. Assessment: 14:34 General: Appears distressed, Behavior is anxious, cooperative. Pain: Location: abdomen ck1 Pain currently is 7 out of 10 on a pain scale. Neurological: Level of Consciousness is awake, alert, obeys commands, Oriented to person, place, time. Cardiovascular: Rhythm is sinus rhythm. Respiratory: Respiratory effort is unlabored, Respiratory pattern is regular, symmetrical. GI: Reports nausea. Derm: Skin is pink, warm & dry. Musculoskeletal: Circulation, motion, and sensation intact Range of motion intact in all extremities. 15:35 General: Appears comfortable, Behavior is cooperative, drowsy. Pain: Location: abdomen ck1 Noted to be quiet/stoic. Neurological: Level of Consciousness is awake, alert, obeys commands, Oriented to person, place, time. Cardiovascular: Rhythm is sinus rhythm. Respiratory: Respiratory effort is unlabored, Respiratory pattern is regular, symmetrical. GI: other tolerating regular diet. Derm: Skin is pink, warm & dry. 16:06 General: Patient assisted to bedside commode. Gait unsteady. reports feeling dizzy. ck1 Assisted back to bed, positioned self for comfort. Will continue to monitor patient. 17:11 General: Appears in no apparent distress, Behavior is cooperative, drowsy. Pain: ck1 Location: back. Neurological: Level of Consciousness is awake, alert, obeys commands, Oriented to person, place, time. Cardiovascular: Rhythm is sinus rhythm. Respiratory: Respiratory effort is even, unlabored, Respiratory pattern is regular, symmetrical. GI: No deficits noted. Derm: Skin is pink, warm & dry. 18:05 General: Attempted to ambulate patient, patient drowsy and gait unsteady at this time. ck1 Dr. Bedolla aware. 18:46 General: Appears in no apparent distress, Behavior is drowsy. Pain: Noted to be ck1 quiet/stoic. Neurological: Level of Consciousness is obeys commands. Cardiovascular: Rhythm is sinus rhythm. Respiratory: Respiratory effort is unlabored, Respiratory pattern is regular, symmetrical. GI: No deficits noted. Derm: Skin is pink, warm & dry. Musculoskeletal: Circulation, motion, and sensation intact Range of motion intact in all extremities. 20:00 Reassessment: Patient appears in no apparent distress at this time. Patient denies pain cf2 at this time. Patient states feeling better. Patient states symptoms have improved. 22:15 General: pt ambulated with assistance at this time. rr even and unlabored.. af2 22:27 Reassessment: Patient appears in no apparent distress at this time. Patient denies pain cf2 at this time. Patient states feeling better. Patient states symptoms have improved. 22:28 General: Patient alert and oriented, states she has an appointment "tomorrow to start cf2 Methadone. I have a problem and i just started shooting up this weekend. I was getting almost 60 pills a day, I've been shopping". 22:31 General: Patient eating snack tray. awaiting disposition. cf2 Social Work Consult: 15:52 Social Work Note: Met pt at bedside regarding opiate addiction. Pt reports being sober ml4 from opiates for the past 2 years, until about 3 months ago. Relapse was triggered by disliking the holidays and some relational problems with daughter who resides in a different state. Additionally, pt reports her best friend 2 wks ago from an OD and pt states, "I just miss her so much." States she initially presented to [facility] for an intake to get back into tx, but was sent to [facility] due to taking 15 tablets of Percocet. Pt states, "I take more than that each day since I suffer from so much pain." She also admits to some Heroin abuse when she is unable to obtain Percocet. States she has significant back and hip pain and requires medication. She adamantly denies ingesting medication as a suicide attempt and continues to deny SI and HI. Referrals for outpt services was given at directed to follow up with [facility] for further tx. Vital Signs: 13:55 BP 122 / 62; Pulse 98; Resp 18; Temp 98.7; Pulse Ox 100% ; Weight 112.49 kg; Height 5 jmk ft. 8 in. (172.72 cm); 14:30 BP 106 / 78 (auto/); ck1 14:34 Pulse 90 MON; Pulse Ox 99% ; ck1 15:00 BP 100 / 62 (auto/); ck1 15:00 Pulse 95 MON; Pulse Ox 99% ; ck1 15:30 BP 96 / 50 (auto/); ck1 15:51 BP 103 / 51 (auto/); ck1 15:52 Pulse 110 MON; Pulse Ox 100% ; ck1 16:00 BP 94 / 50 (auto/); ck1 16:00 BP 89 / 45 (auto/); ck1 16:00 Pulse 110 MON; Pulse Ox 91% ; ck1 16:01 Pulse 106 MON; Pulse Ox 96% ; ck1 16:02 Pulse 105 MON; Pulse Ox 100% ; ck1 16:03 Pulse 106 MON; Pulse Ox 100% ; ck1 16:08 BP 103 / 50 (auto/); ck1 16:38 BP 123 / 58 (auto/); ck1 16:53 BP 116 / 59 (auto/); ck1 17:08 BP 111 / 56 (auto/); ck1 17:09 Pulse 114 MON; Pulse Ox 100% ; ck1 17:10 Pulse 114 MON; Pulse Ox 98% ; ck1 17:23 BP 120 / 58 (auto/); ck1 17:38 BP 113 / 56 (auto/); ck1 17:53 BP 101 / 50 (auto/); ck1 17:53 Pulse 108 MON; Pulse Ox 95% ; ck1 17:57 BP 103 / 55 (auto/); ck1 17:57 Pulse 107 MON; Pulse Ox 95% ; ck1 18:03 BP 129 / 80 (auto/); ck1 18:04 Pulse 108 MON; Pulse Ox 99% ; ck1 18:11 BP 103 / 55; Pulse 107; Resp 16; Temp 99.0(O); Pulse Ox 95% on R/A; hs1 18:36 Pulse 95 MON; Pulse Ox 97% ; ck1 18:36 BP 121 / 56 (auto/); ck1 13:55 Body Mass Index 37.71 (112.49 kg, 172.72 cm) [facility] Vitals: 13:55 Log In Time N/A - ambulance arrival. [facility] ED Course: 13:45 Patient visited by Reta Joe PCA. jlf 13:45 Tonya Alvarez MD is Private Physician. jlf 13:45 Patient moved to Waiting jlf 13:46 Pamela Evans,LUAN is Primary Nurse. jlf 13:46 Patient moved to 3 [facility] 13:49 Triage Initiated jmk 14:00 Acetaminophen Level Sent. jmk 14:00 Basic Metabolic Profile Sent. jmk 14:00 Complete Blood Count Sent. jmk 14:00 Ethyl Alcohol (ethanol) Sent. jmk 14:00 Liver Profile Sent. jmk 14:00 Salicylate Level Sent. jmk 14:00 Thyroid Stimulating Hormone Sent. jmk 14:05 Norma Munguia MD is Attending Physician. sd1 14:07 Patient visited by Norma Munguia MD. sd1 14:18 Inserted saline lock: 20 gauge in right antecubital area and blood collected. The ck1 patient tolerated the procedure well. by LUNA German. 14:19 The patient / caregiver is instructed regarding the plan of care and ED course. ck1 14:33 Patient visited by Pamela Evans RN. ck1 14:33 PT/INR Sent. ck1 14:34 Drug Eval Toxicology ED Only Sent. ck1 15:04 Patient visited by Pamela Evans RN. ck1 15:04 box lunch provided. ck1 15:49 Patient visited by Pamela Evans,LUNA. ck1 16:02 Patient visited by Pamela Evans RN. ck1 16:03 [facility] Payment Agreement was scanned into [employer] and attached to record. dm19 16:33 Patient visited by Pamela Evans RN. ck1 17:02 Patient visited by Reta Joe PCA. jlf 17:12 Patient visited by Pamela Evans RN. ck1 17:12 No procedures done that require assistance. ck1 17:43 Patient visited by Pamela Evans RN. ck1 18:04 Patient visited by Pamela Evans RN. ck1 18:23 Patient visited by Pamela Evans RN. ck1 18:23 ACETAMINOPHEN LEVEL Sent. ck1 18:23 Fingerstick Blood Sugar Sent. ck1 18:35 Patient visited by Pamela Evans RN. ck1 18:46 Patient visited by Pamela Evans RN. ck1 18:51 Primary Nurse role handed off by Pamela Evans RN ck1 19:04 Mary Ellen Zamora RN is Primary Nurse. cf2 19:04 Patient visited by Mary Ellen Zamora RN. cf2 19:28 Attending Physician role handed off by Norma Munguia MD cs11 19:28 Kuldeep Limon DO is Attending Physician. cs11 19:35 Patient visited by Mary Ellen Zamora RN. cf2 20:14 Patient visited by Mary Ellen Zamora RN. cf2 21:12 Patient visited by Mary Ellen Zamora RN. cf2 21:26 ACETAMINOPHEN LEVEL Sent. jlm 21:50 Patient visited by Mary Ellen Zamora RN. cf2 22:16 Patient visited by Olga Phillips RN. af2 Administered Medications: 14:33 Drug: NS 0.9% 1000 ml [sodium chloride 0.9 % intravenous solution] Route: IV; Rate: ck1 bolus; Site: right antecubital; 17:11 Follow up: IV Status: Completed infusion ck1 14:33 Drug: Promethazine 25 mg [promethazine 25 mg/mL injection solution (1 mL)] Route: IVP; ck1 Site: right antecubital; 17:11 Drug: NS 0.9% 1000 ml [sodium chloride 0.9 % intravenous solution] Route: IV; Rate: ck1 bolus; Site: right antecubital; 17:15 Not Given (Duplicate Order): NS 0.9% 1000 ml IV at bolus once ck1 18:35 Drug: D50W 50 ml [dextrose 50 % in water (D50W) intravenous syringe (50 mL)] Route: ck1 IVP; Site: right antecubital; Point of Care Testing: Blood Glucose: 18:15 Blood Glucose: 62 mg/dL; ck1 Ranges: Order Results: Lab Order: Acetaminophen Level; SPEC'M 11/07/16 13:57 Test: ACETAMINOPHEN LEVEL; Value: 20.4; Range: 10.0-30.0; Units: UG/ML; Status: F Lab Order: Basic Metabolic Profile; SPEC'M 11/07/16 13:57 Test: GLUCOSE, FASTING; Value: 46; Range: 70-105; Abnormal: Below low normal; Units: MG/DL; Status: F Test: BLOOD UREA NITROGEN; Value: 12; Range: 7-18; Units: MG/DL; Status: F Test: CREATININE FOR GFR; Value: 1.13; Range: 0.55-1.02; Abnormal: Above high normal; Units: MG/DL; Status: F Test: GLOMERULAR FILTRATION RATE; Value: 57.7; Range: >60; Abnormal: Below low normal; Status: F Test: SODIUM LEVEL; Value: 143; Range: 136-145; Units: MEQ/L; Status: F Test: POTASSIUM SERUM; Value: 3.7; Range: 3.5-5.1; Units: MEQ/L; Status: F Test: CHLORIDE LEVEL; Value: 112; Range: 98-107; Abnormal: Above high normal; Units: MEQ/L; Status: F Test: CARBON DIOXIDE LEVEL; Value: 21; Range: 21-32; Units: MEQ/L; Status: F Test: ANION GAP; Value: 10; Range: 8-16; Units: MEQ/L; Status: F Test: CALCIUM LEVEL; Value: 8.6; Range: 8.5-10.1; Units: MG/DL; Status: F Test Note: ; Units are mL/min/1.73 m2 Chronic Kidney Disease Staging per NKF: Stage I & II GFR >=60 Normal to Mildly Decreased Stage III GFR 30-59 Moderately Decreased Stage IV GFR 15-29 Severely Decreased Stage V GFR <15 Very Little GFR Left ESRD GFR <15 on BELLMAN Lab Order: Complete Blood Count; SPEC'M 11/07/16 13:57 Test: WHITE BLOOD COUNT; Value: 8.9; Range: 4.0-10.0; Units: K/mm3; Status: F Test: RED BLOOD COUNT; Value: 3.67; Range: 4.00-5.40; Abnormal: Below low normal; Units: M/mm3; Status: F Test: HEMOGLOBIN; Value: 11.1; Range: 12.0-16.0; Abnormal: Below low normal; Units: g/dl; Status: F Test: HEMATOCRIT; Value: 34.6; Range: 36.0-47.0; Abnormal: Below low normal; Units: %; Status: F Test: MEAN CORPUSCULAR VOLUME; Value: 94.1; Range: 80.0-96.0; Units: fl; Status: F Test: MEAN CORPUSCULAR HEMOGLOBIN; Value: 30.4; Range: 27.0-33.0; Units: pg; Status: F Test: MEAN CORPUSCULAR HGB CONC; Value: 32.2; Range: 32.0-36.5; Units: g/dl; Status: F Test: RED CELL DISTRIBUTION WIDTH; Value: 14.4; Range: 11.5-14.5; Units: %; Status: F Test: PLATELET COUNT, AUTOMATED; Value: 273; Range: 150-450; Units: k/mm3; Status: F Lab Order: Drug Eval Toxicology ED Only; SPEC'M 11/07/16 14:32 Test: AMPHETAMINES LEVEL URINE; Value: POSITIVE; Range: NEGATIVE; Abnormal: Above high normal; Status: F Test: BARBITURATES URINE; Value: NEGATIVE; Range: NEGATIVE; Status: F Test: BENZODIAZEPINES URINE; Value: POSITIVE; Range: NEGATIVE; Abnormal: Above high normal; Status: F Test: CANNABINOIDS URINE; Value: NEGATIVE; Range: NEGATIVE; Status: F Test: COCAINE METABOLITE URINE; Value: NEGATIVE; Range: NEGATIVE; Status: F Test: METHADONE URINE; Value: NEGATIVE; Range: NEGATIVE; Status: F Test: OPIATES URINE; Value: POSITIVE; Range: NEGATIVE; Abnormal: Above high normal; Status: F Test: TRICYCLIC ANTIDEPRESS URINE; Value: NEGATIVE; Range: NEGATIVE; Status: F Test Note: ; ALL PRESUMPTIVE POSITIVE FINDINGS ARE UNCONFIRMED NORMAL VALUES THRESHOLD IN NG/ML AMPHETAMINES 1000 METHAMPHETAMINES 1000 BARBITURATES 300 BENZODIAZEPINES 300 CANNABINOIDS (THC) 50 COCAINE METABOLITE 300 METHADONE 300 OPIATES 300 PHENCYCLIDINE 25 TRICYCLIC ANTIDEPRESSANTS 1000 RESULTS ARE FOR MEDICAL PURPOSES ONLY. ALL URINE SPECIMENS WILL BE SAVED FOR 3 DAYS. IF CONFIRMATION OF A PRESUMPTIVE POSTIVE SCREEN RESULT IS DESIRED, CALL CHEMISTRY ([phone]) AND REQUEST URINE TO BE SENT TO REFERENCE LAB. FOR A LIST OF CLOSELY RELATED COMPOUNDS PLEASE CALL THE LAB. Lab Order: Ethyl Alcohol (ethanol); SPEC'M 11/07/16 13:57 Test: ETHYL ALCOHOL (ETHANOL); Value: < 0.003; Range: 0.000-0.010; Units: %; Status: F Lab Order: Liver Profile; SPEC'M 11/07/16 13:57 Test: AST/SGOT; Value: 28; Range: 15-37; Units: U/L; Status: F Test: ALT/SGPT; Value: 21; Range: 12-78; Units: U/L; Status: F Test: ALKALINE PHOSPHATASE; Value: 35; Range: 45-117; Abnormal: Below low normal; Units: U/L; Status: F Test: BILIRUBIN,TOTAL; Value: 0.3; Range: 0.2-1.0; Units: MG/DL; Status: F Test: BILIRUBIN,DIRECT; Value: 0.1; Range: 0.0-0.2; Units: MG/DL; Status: F Test: TOTAL PROTEIN; Value: 7.8; Range: 6.4-8.2; Units: GM/DL; Status: F Test: ALBUMIN; Value: 3.8; Range: 3.2-5.2; Units: GM/DL; Status: F Test: ALBUMIN/GLOBULIN RATIO; Value: 0.95; Range: 1.00-1.93; Abnormal: Below low normal; Status: F Lab Order: Salicylate Level; SPEC'M 11/07/16 13:57 Test: SALICYLATE LEVEL; Value: < 1.7; Range: 5.0-30.0; Abnormal: Below low normal; Units: MG/DL; Status: F Lab Order: Thyroid Stimulating Hormone; SPEC'11/07/16 13:57 Test: THYROID STIMULATING HORMONE; Value: 2.180; Range: 0.358-3.740; Units: uIU/ML; Status: F Lab Order: PT/INR; [facility]' 11/07/16 14:32 Test: PROTHROMBIN TIME; Value: 14.0; Range: 12.3-14.5; Units: SECONDS; Status: F Test: INR; Value: 1.07; Status: F Test Note: ; THERAPUTIC HUMAN INR VALUES INDICATIONS NORMAL RANGES PROPHYLAXIS/TREATMENT OF: VENOUS THROMBOSIS 2.0-3.0 PULMONARY EMBOLISM 2.0-3.0 PREVENTION OF SYSTEMIC EMBOLISM FROM: TISSUE HEART VALVES 2.0-3.0 ACUTE MYOCARDIAL INFARCTION 2.0-3.0 VALVULAR HEART DISEASE 2.0-3.0 ATRIAL FIBRILLATION 2.0-3.0 MECHANICAL VALVES(HIGH RISK) 2.5-3.5 RECURRENT MYOCARDIAL INFARCTION 2.5-3.5 Lab Order: ACETAMINOPHEN LEVEL; [facility]' 11/07/16 18:22 Test: ACETAMINOPHEN LEVEL; Value: 8.1; Range: 10.0-30.0; Abnormal: Below low normal; Units: UG/ML; Status: F Lab Order: Fingerstick Blood Sugar; [facility] 11/07/16 18:14 Test: BEDSIDE GLUCOSE; Value: 62; Range: 70-105; Abnormal: Below low normal; Units: MG/DL; Status: F Lab Order: ACETAMINOPHEN LEVEL; [facility] 11/07/16 21:25 Test: ACETAMINOPHEN LEVEL; Value: 6.3; Range: 10.0-30.0; Abnormal: Below low normal; Units: UG/ML; Status: F Lab Order: Fingerstick Blood Sugar; [facility] 11/07/16 22:22 Test: BEDSIDE GLUCOSE; Value: 99; Range: 70-105; Units: MG/DL; Status: F Outcome: 17:12 No special radiology studies were completed. ck1 22:34 Discharge ordered by Provider. cs11 23:11 Discharge Assessment: Patient awake, alert and oriented x 3. No cognitive and/or cf2 functional deficits noted. Patient verbalized understanding of disposition instructions. Patient awake and alert. patient administered narcotics - no. The following High Risk Discharge criteria are identified: None. Condition: stable Condition: improved. Discharge instructions given to patient, significant other, Instructed on discharge instructions, follow up and referral plans. Detox facilites, drug rehab centers at patient's request. Property :Personal belongings accompany Pt. 23:12 Patient left the ED. cf2 Signatures: Norma Munguia MD MD sd1 Nicola Beasley,RN RN Pamela Mathis,RN RN ck1 Gillian Peter, PSA PSA ml4 Monserrat Monson, RN RN hs1 Kuldeep Limon, DO DO cs11 Heath, Jordain, SEWING MACHINE MECHANIC SEWING MACHINE MECHANIC jlf Liane Eugene, Pediatric Nephrologist Unit jl Olga Phillips RN RN af2 Mary Ellen ZamoraRN RN cf2 Yesica Walkerne dm19 Corrections: (The following items were deleted from the chart) 16:04 15:52 Social Work Note: Met pt at bedside regarding opiate addiction. Pt reports being ml4 sober from opiates for the past 2 years, until about 3 months ago. Relapse was triggered by disliking the holidays and some relational problems with daughter who resides in a different state. Additionally, pt reports her best friend 2 wks ago from an OD and pt states, "I just miss her so much." States she initially presented to [facility] for an intake to get back into tx, but was sent to [facility] due to taking 15 tablets of Percocet. Pt states, "I take more than that each day since I suffer from so much pain." She also admits to some Heroin abuse when she is unable to obtain Percocet. She adamantly denies ingesting medication as a suicide attempt and continues to deny SI and HI. Referrals for outpt services was given at directed to follow up with [facility] for further tx. ml4 17:09 15:30 Pulse 101bpm; Monitor; Pulse Ox 53%; ck1 ck1 Chart Complete MTDD
--- NOTE | 2016-11-11 14:57 | EDDOCDS ---
Physician Documentation [facility] Name: Lianne Saldana Age: 35 yrs Sex: Female : 1980 Arrival Date: 11/07/2016 Time: 13:44 Bed 3 Private MD: Tonya Alvarez Disposition: 11/07/16 22:34 Discharged to Home/Self Care. Impression: Opioid dependence with intoxication, Hypoglycemia, unspecified. - Condition is Stable. - Medication Reconciliation, Local Pharmacy Hours form. - Follow up: Private Physician; When: As previously arranged. - Problem is an ongoing problem. - Symptoms have improved. Historical: - Allergies: Bactrim (Hives); Bentyl (Seizures); IV Dye (Rash); NSAIDS (can not take due to gastric bypass)gastric bypas procedure done in 2002; - Home Meds: 1. Latuda 40 mg oral tab 1 tab once daily (Last dose: 11/07/2016 07:00) 2. topiramate 50 mg oral tab (Last dose: 11/07/2016 09:00) 3. Adderall XR 30 mg Oral cp24 1 cap twice a day not taking at this time 4. Valium 10 mg Oral tab states out of valium and adderal , uses them recreationaly and non additional today 5. gabapentin 300 mg Oral cap 3 caps 3 times per day 6. clonidine HCl 0.2 mg Oral tab once daily (Last dose: 11/06/2016) 7. Cipro 500 mg Oral tab 1 tab every 12 hours (Last dose: 11/04/2016) - PMHx: ADHD; Anemia; Anxiety; Depression; Hypoglycemia; insomnia; PTSD; Raynauds; Sciatica; TBI; - PSHx: Cholecystectomy; Tubal ligation; Gastric Bypass; Hysterectomy; - Social history: Smoking status: Patient uses tobacco products, current some day smoker. No barriers to communication noted, The patient speaks fluent Zambian. - Family history: Not pertinent. - : The pt / caregiver states he / she is not on anticoagulants. Home medication list is obtained from the patient. - Exposure Risk Screening:: None identified. DIGITAL ANALYST: 11/07 13:55 2, Full Term 2 jmk Vital Signs: 13:55 BP 122 / 62; Pulse 98; Resp 18; Temp 98.7; Pulse Ox 100% ; Weight 112.49 kg / 248 lbs; jmk Height 5 ft. 8 in. (172.72 cm); 14:30 BP 106 / 78 (auto/); ck1 14:34 Pulse 90 MON; Pulse Ox 99% ; ck1 15:00 BP 100 / 62 (auto/); ck1 15:00 Pulse 95 MON; Pulse Ox 99% ; ck1 15:30 BP 96 / 50 (auto/); ck1 15:51 BP 103 / 51 (auto/); ck1 15:52 Pulse 110 MON; Pulse Ox 100% ; ck1 16:00 BP 94 / 50 (auto/); ck1 16:00 BP 89 / 45 (auto/); ck1 16:00 Pulse 110 MON; Pulse Ox 91% ; ck1 16:01 Pulse 106 MON; Pulse Ox 96% ; ck1 16:02 Pulse 105 MON; Pulse Ox 100% ; ck1 16:03 Pulse 106 MON; Pulse Ox 100% ; ck1 16:08 BP 103 / 50 (auto/); ck1 16:38 BP 123 / 58 (auto/); ck1 16:53 BP 116 / 59 (auto/); ck1 17:08 BP 111 / 56 (auto/); ck1 17:09 Pulse 114 MON; Pulse Ox 100% ; ck1 17:10 Pulse 114 MON; Pulse Ox 98% ; ck1 17:23 BP 120 / 58 (auto/); ck1 17:38 BP 113 / 56 (auto/); ck1 17:53 BP 101 / 50 (auto/); ck1 17:53 Pulse 108 MON; Pulse Ox 95% ; ck1 17:57 BP 103 / 55 (auto/); ck1 17:57 Pulse 107 MON; Pulse Ox 95% ; ck1 18:03 BP 129 / 80 (auto/); ck1 18:04 Pulse 108 MON; Pulse Ox 99% ; ck1 18:11 BP 103 / 55; Pulse 107; Resp 16; Temp 99.0(O); Pulse Ox 95% on R/A; hs1 18:36 Pulse 95 MON; Pulse Ox 97% ; ck1 18:36 BP 121 / 56 (auto/); ck1 13:55 Body Mass Index 37.71 (112.49 kg, 172.72 cm) [facility] MDM: 13:55 Consult PFS/PSA/Funeral Home Makeup Artist ordered. sd1 13:55 Consult PFS/PSA/Funeral Home Makeup Artist: Patient's case requires discussion with on-call sd1 Psychiatrist ordered. 13:55 PSA/PFS to call Nursing Coat Agent, to enter [place] data [place] if patient sd1 involuntarily admitted or transferred for SI or HI ordered. 13:55 Registered Nurse Teacher/Pulse Ox/q 15 min VS ordered. sd1 13:55 Confirm accurate psychiatric medication list and times of last dosage ordered. sd1 13:55 Detain Pt Until Medically/PFS Cleared ordered. sd1 13:55 IV Saline Lock ordered. sd1 13:57 Acetaminophen Level Ordered. EDMS 13:57 Basic Metabolic Profile Ordered. EDMS 13:57 Complete Blood Count Ordered. EDMS 13:57 Drug Eval Toxicology ED Only Ordered. EDMS 13:57 Ethyl Alcohol (ethanol) Ordered. EDMS 13:57 Liver Profile Ordered. EDMS 13:57 Salicylate Level Ordered. EDMS 13:57 Thyroid Stimulating Hormone Ordered. EDMS 14:12 NS 0.9% 1000 ml IV at bolus once ordered. sd1 14:12 Promethazine 25 mg IVP once; dilute and administer 30-60 minutes ordered. sd1 14:13 PT/INR Ordered. EDMS 14:18 PSA/PFS to call Nursing Coat Agent, to [place] if patient ck1 involuntarily admitted or transferred for SI or HI complete. 14:18 Consult PFS/PSA/Funeral Home Makeup Artist: Patient's case requires discussion with on-call ck1 Psychiatrist complete. 14:18 Consult PFS/PSA/Funeral Home Makeup Artist complete. ck1 15:06 Basic Metabolic Profile Reviewed. sd1 15:06 Complete Blood Count Reviewed. sd1 15:06 Drug Eval Toxicology ED Only Reviewed. sd1 15:06 Liver Profile Reviewed. sd1 15:06 Salicylate Level Reviewed. sd1 15:06 Acetaminophen Level Reviewed. sd1 15:06 Ethyl Alcohol (ethanol) Reviewed. sd1 15:06 Thyroid Stimulating Hormone Reviewed. sd1 15:06 PT/INR Reviewed. sd1 16:03 [facility] Payment Agreement was scanned into [employer] and attached to record. dm19 16:04 Financial registration complete. dm19 17:11 NS 0.9% 1000 ml IV at bolus once ordered. ck1 17:13 NS 0.9% 1000 ml IV at bolus once ordered. sd1 17:55 Misc. Nursing Order ordered. sd1 18:10 Redraw Labs ordered. sd1 18:10 Accucheck ordered. sd1 18:11 Redraw Labs complete. lbd 18:14 ACETAMINOPHEN LEVEL Ordered. EDMS 18:21 Fingerstick Blood Sugar Ordered. EDMS 18:25 D50W 50 ml IVP once; (1 amp) ordered. sd1 19:02 ACETAMINOPHEN LEVEL Reviewed. sd1 19:02 Fingerstick Blood Sugar Reviewed. sd1 19:03 Redraw Acetaminophen (put time in details section) ordered. sd1 19:05 Redraw Acetaminophen (put time in details section) complete. sew 19:06 ACETAMINOPHEN LEVEL Ordered. EDMS 21:20 Ambulate Patient to Assess Patient Safety ordered. cs11 22:13 ACETAMINOPHEN LEVEL Reviewed. cs11 22:14 Accucheck ordered. cs11 22:32 Fingerstick Blood Sugar Ordered. EDMS Point of Care Testing: Blood Glucose: 18:15 Blood Glucose: 62 mg/dL; ck1 Ranges: Administered Medications: 14:33 Drug: NS 0.9% 1000 ml [sodium chloride 0.9 % intravenous solution] Route: IV; Rate: ck1 bolus; Site: right antecubital; 17:11 Follow up: IV Status: Completed infusion ck1 14:33 Drug: Promethazine 25 mg [promethazine 25 mg/mL injection solution (1 mL)] Route: IVP; ck1 Site: right antecubital; 17:11 Drug: NS 0.9% 1000 ml [sodium chloride 0.9 % intravenous solution] Route: IV; Rate: ck1 bolus; Site: right antecubital; 17:15 Not Given (Duplicate Order): NS 0.9% 1000 ml IV at bolus once ck1 18:35 Drug: D50W 50 ml [dextrose 50 % in water (D50W) intravenous syringe (50 mL)] Route: ck1 IVP; Site: right antecubital; Signatures: Dispatcher MedHost EDPR Norma Munguia MD MD sd1 Soni Neil, Decorator Inspector Unit lbd Nicola Beasley RN RN jmk Kim-Ashcraft, Connie, RN RN ck1 Norma Nolan Craig, DO DO cs11 Mary Ellen Zamora RN RN cf2 Suri Walker dm19 The chart was reviewed and I authenticate all verbal orders and agree with the evaluation and treatment provided.Corrections: (The following items were deleted from the chart) 19:02 19:02 Redraw Acetaminophen (put time in details section) ordered. sd1 sd1 Attachments: 16:03 [facility] Payment Agreement dm19 Chart Complete MTDD
--- NOTE | 2016-11-11 14:57 | EDDOCDS ---
Physician Documentation [facility] Name: Lianne Saldana Age: 35 yrs Sex: Female : 1980 Arrival Date: 11/07/2016 Time: 13:44 Bed 3 Private MD: Tonya Alvarez Disposition: 11/07/16 22:34 Discharged to Home/Self Care. Impression: Opioid dependence with intoxication, Hypoglycemia, unspecified. - Condition is Stable. - Medication Reconciliation, Local Pharmacy Hours form. - Follow up: Private Physician; When: As previously arranged. - Problem is an ongoing problem. - Symptoms have improved. Historical: - Allergies: Bactrim (Hives); Bentyl (Seizures); IV Dye (Rash); NSAIDS (can not take due to gastric bypass)gastric bypas procedure done in 2002; - Home Meds: 1. Latuda 40 mg oral tab 1 tab once daily (Last dose: 11/07/2016 07:00) 2. topiramate 50 mg oral tab (Last dose: 11/07/2016 09:00) 3. Adderall XR 30 mg Oral cp24 1 cap twice a day not taking at this time 4. Valium 10 mg Oral tab states out of valium and adderal , uses them recreationaly and non additional today 5. gabapentin 300 mg Oral cap 3 caps 3 times per day 6. clonidine HCl 0.2 mg Oral tab once daily (Last dose: 11/06/2016) 7. Cipro 500 mg Oral tab 1 tab every 12 hours (Last dose: 11/04/2016) - PMHx: ADHD; Anemia; Anxiety; Depression; Hypoglycemia; insomnia; PTSD; Raynauds; Sciatica; TBI; - PSHx: Cholecystectomy; Tubal ligation; Gastric Bypass; Hysterectomy; - Social history: Smoking status: Patient uses tobacco products, current some day smoker. No barriers to communication noted, The patient speaks fluent Panamanian. - Family history: Not pertinent. - : The pt / caregiver states he / she is not on anticoagulants. Home medication list is obtained from the patient. - Exposure Risk Screening:: None identified. 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 8 in. (172.72 cm); 14:30 BP 106 / 78 (auto/); ck1 14:34 Pulse 90 MON; Pulse Ox 99% ; ck1 15:00 BP 100 / 62 (auto/); ck1 15:00 Pulse 95 MON; Pulse Ox 99% ; ck1 15:30 BP 96 / 50 (auto/); ck1 15:51 BP 103 / 51 (auto/); ck1 15:52 Pulse 110 MON; Pulse Ox 100% ; ck1 16:00 BP 94 / 50 (auto/); ck1 16:00 BP 89 / 45 (auto/); ck1 16:00 Pulse 110 MON; Pulse Ox 91% ; ck1 16:01 Pulse 106 MON; Pulse Ox 96% ; ck1 16:02 Pulse 105 MON; Pulse Ox 100% ; ck1 16:03 Pulse 106 MON; Pulse Ox 100% ; ck1 16:08 BP 103 / 50 (auto/); ck1 16:38 BP 123 / 58 (auto/); ck1 16:53 BP 116 / 59 (auto/); ck1 17:08 BP 111 / 56 (auto/); ck1 17:09 Pulse 114 MON; Pulse Ox 100% ; ck1 17:10 Pulse 114 MON; Pulse Ox 98% ; ck1 17:23 BP 120 / 58 (auto/); ck1 17:38 BP 113 / 56 (auto/); ck1 17:53 BP 101 / 50 (auto/); ck1 17:53 Pulse 108 MON; Pulse Ox 95% ; ck1 17:57 BP 103 / 55 (auto/); ck1 17:57 Pulse 107 MON; Pulse Ox 95% ; ck1 18:03 BP 129 / 80 (auto/); ck1 18:04 Pulse 108 MON; Pulse Ox 99% ; ck1 18:11 BP 103 / 55; Pulse 107; Resp 16; Temp 99.0(O); Pulse Ox 95% on R/A; hs1 18:36 Pulse 95 MON; Pulse Ox 97% ; ck1 18:36 BP 121 / 56 (auto/); ck1 13:55 Body Mass Index 37.71 (112.49 kg, 172.72 cm) [facility] MDM: 13:55 Consult PFS/PSA/Manager Cath Lab ordered. sd1 13:55 Consult PFS/PSA/Manager Cath Lab: Patient's case requires discussion with on-call sd1 Psychiatrist ordered. 13:55 PSA/PFS to call Nursing Carcass Trimmer, to [place] if patient sd1 involuntarily admitted or transferred for SI or HI ordered. 13:55 Physician Assistant Certified/Pulse Ox/q 15 min VS ordered. sd1 13:55 Confirm accurate psychiatric medication list and times of last dosage ordered. sd1 13:55 Detain Pt Until Medically/PFS Cleared ordered. sd1 13:55 IV Saline Lock ordered. sd1 13:57 Acetaminophen Level Ordered. EDMS 13:57 Basic Metabolic Profile Ordered. EDMS 13:57 Complete Blood Count Ordered. EDMS 13:57 Drug Eval Toxicology ED Only Ordered. EDMS 13:57 Ethyl Alcohol (ethanol) Ordered. EDMS 13:57 Liver Profile Ordered. EDMS 13:57 Salicylate Level Ordered. EDMS 13:57 Thyroid Stimulating Hormone Ordered. EDMS 14:12 NS 0.9% 1000 ml IV at bolus once ordered. sd1 14:12 Promethazine 25 mg IVP once; dilute and administer 30-60 minutes ordered. sd1 14:13 PT/INR Ordered. EDMS 14:18 PSA/PFS to call Nursing Carcass Trimmer, to [place] if patient ck1 involuntarily admitted or transferred for SI or HI complete. 14:18 Consult PFS/PSA/Manager Cath Lab: Patient's case requires discussion with on-call ck1 Psychiatrist complete. 14:18 Consult PFS/PSA/Manager Cath Lab complete. ck1 15:06 Basic Metabolic Profile Reviewed. sd1 15:06 Complete Blood Count Reviewed. sd1 15:06 Drug Eval Toxicology ED Only Reviewed. sd1 15:06 Liver Profile Reviewed. sd1 15:06 Salicylate Level Reviewed. sd1 15:06 Acetaminophen Level Reviewed. sd1 15:06 Ethyl Alcohol (ethanol) Reviewed. sd1 15:06 Thyroid Stimulating Hormone Reviewed. sd1 15:06 PT/INR Reviewed. sd1 16:03 [facility] Payment Agreement was scanned into [employer] and attached to record. dm19 16:04 Financial registration complete. dm19 17:11 NS 0.9% 1000 ml IV at bolus once ordered. ck1 17:13 NS 0.9% 1000 ml IV at bolus once ordered. sd1 17:55 Misc. Nursing Order ordered. sd1 18:10 Redraw Labs ordered. sd1 18:10 Accucheck ordered. sd1 18:11 Redraw Labs complete. lbd 18:14 ACETAMINOPHEN LEVEL Ordered. EDMS 18:21 Fingerstick Blood Sugar Ordered. EDMS 18:25 D50W 50 ml IVP once; (1 amp) ordered. sd1 19:02 ACETAMINOPHEN LEVEL Reviewed. sd1 19:02 Fingerstick Blood Sugar Reviewed. sd1 19:03 Redraw Acetaminophen (put time in details section) ordered. sd1 19:05 Redraw Acetaminophen (put time in details section) complete. sew 19:06 ACETAMINOPHEN LEVEL Ordered. EDMS 21:20 Ambulate Patient to Assess Patient Safety ordered. cs11 22:13 ACETAMINOPHEN LEVEL Reviewed. cs11 22:14 Accucheck ordered. cs11 22:32 Fingerstick Blood Sugar Ordered. EDMS Point of Care Testing: Blood Glucose: 18:15 Blood Glucose: 62 mg/dL; ck1 Ranges: Administered Medications: 14:33 Drug: NS 0.9% 1000 ml [sodium chloride 0.9 % intravenous solution] Route: IV; Rate: ck1 bolus; Site: right antecubital; 17:11 Follow up: IV Status: Completed infusion ck1 14:33 Drug: Promethazine 25 mg [promethazine 25 mg/mL injection solution (1 mL)] Route: IVP; ck1 Site: right antecubital; 17:11 Drug: NS 0.9% 1000 ml [sodium chloride 0.9 % intravenous solution] Route: IV; Rate: ck1 bolus; Site: right antecubital; 17:15 Not Given (Duplicate Order): NS 0.9% 1000 ml IV at bolus once ck1 18:35 Drug: D50W 50 ml [dextrose 50 % in water (D50W) intravenous syringe (50 mL)] Route: ck1 IVP; Site: right antecubital; Signatures: Dispatcher MedHost EDOH Norma Munguia MD MD sd1 Soni Neil, Chief Strategy Officer Unit lbd Nicola Bealsey RN RN jmk Kim-Ashcraft, Connie, RN RN ck1 Norma Nolan Craig, DO DO cs11 Mary Ellen Zamora RN RN cf2 Suri Walker dm19 The chart was reviewed and I authenticate all verbal orders and agree with the evaluation and treatment provided.Corrections: (The following items were deleted from the chart) 19:02 19:02 Redraw Acetaminophen (put time in details section) ordered. sd1 sd1 Attachments: 16:03 [facility] Payment Agreement dm19 Chart Complete MTDD
--- NOTE | 2016-11-11 14:58 | EDDOCDS ---
Physician Documentation [facility] Name: Lianne Saldana Age: 35 yrs Sex: Female : 1980 Arrival Date: 11/07/2016 Time: 13:44 Bed 3 Private MD: Tonya Alvarez Disposition: 11/07/16 22:34 Discharged to Home/Self Care. Impression: Opioid dependence with intoxication, Hypoglycemia, unspecified. - Condition is Stable. - Medication Reconciliation, Local Pharmacy Hours form. - Follow up: Private Physician; When: As previously arranged. - Problem is an ongoing problem. - Symptoms have improved. Historical: - Allergies: Bactrim (Hives); Bentyl (Seizures); IV Dye (Rash); NSAIDS (can not take due to gastric bypass)gastric bypas procedure done in 2002; - Home Meds: 1. Latuda 40 mg oral tab 1 tab once daily (Last dose: 11/07/2016 07:00) 2. topiramate 50 mg oral tab (Last dose: 11/07/2016 09:00) 3. Adderall XR 30 mg Oral cp24 1 cap twice a day not taking at this time 4. Valium 10 mg Oral tab states out of valium and adderal , uses them recreationaly and non additional today 5. gabapentin 300 mg Oral cap 3 caps 3 times per day 6. clonidine HCl 0.2 mg Oral tab once daily (Last dose: 11/06/2016) 7. Cipro 500 mg Oral tab 1 tab every 12 hours (Last dose: 11/04/2016) - PMHx: ADHD; Anemia; Anxiety; Depression; Hypoglycemia; insomnia; PTSD; Raynauds; Sciatica; TBI; - PSHx: Cholecystectomy; Tubal ligation; Gastric Bypass; Hysterectomy; - Social history: Smoking status: Patient uses tobacco products, current some day smoker. No barriers to communication noted, The patient speaks fluent Croatian. - Family history: Not pertinent. - : The pt / caregiver states he / she is not on anticoagulants. Home medication list is obtained from the patient. - Exposure Risk Screening:: None identified. 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 8 in. (172.72 cm); 14:30 BP 106 / 78 (auto/); ck1 14:34 Pulse 90 MON; Pulse Ox 99% ; ck1 15:00 BP 100 / 62 (auto/); ck1 15:00 Pulse 95 MON; Pulse Ox 99% ; ck1 15:30 BP 96 / 50 (auto/); ck1 15:51 BP 103 / 51 (auto/); ck1 15:52 Pulse 110 MON; Pulse Ox 100% ; ck1 16:00 BP 94 / 50 (auto/); ck1 16:00 BP 89 / 45 (auto/); ck1 16:00 Pulse 110 MON; Pulse Ox 91% ; ck1 16:01 Pulse 106 MON; Pulse Ox 96% ; ck1 16:02 Pulse 105 MON; Pulse Ox 100% ; ck1 16:03 Pulse 106 MON; Pulse Ox 100% ; ck1 16:08 BP 103 / 50 (auto/); ck1 16:38 BP 123 / 58 (auto/); ck1 16:53 BP 116 / 59 (auto/); ck1 17:08 BP 111 / 56 (auto/); ck1 17:09 Pulse 114 MON; Pulse Ox 100% ; ck1 17:10 Pulse 114 MON; Pulse Ox 98% ; ck1 17:23 BP 120 / 58 (auto/); ck1 17:38 BP 113 / 56 (auto/); ck1 17:53 BP 101 / 50 (auto/); ck1 17:53 Pulse 108 MON; Pulse Ox 95% ; ck1 17:57 BP 103 / 55 (auto/); ck1 17:57 Pulse 107 MON; Pulse Ox 95% ; ck1 18:03 BP 129 / 80 (auto/); ck1 18:04 Pulse 108 MON; Pulse Ox 99% ; ck1 18:11 BP 103 / 55; Pulse 107; Resp 16; Temp 99.0(O); Pulse Ox 95% on R/A; hs1 18:36 Pulse 95 MON; Pulse Ox 97% ; ck1 18:36 BP 121 / 56 (auto/); ck1 13:55 Body Mass Index 37.71 (112.49 kg, 172.72 cm) [facility] MDM: 13:55 Consult PFS/PSA/Waiter/Waitress Cafeteria ordered. sd1 13:55 Consult PFS/PSA/Waiter/Waitress Cafeteria: Patient's case requires discussion with on-call sd1 Psychiatrist ordered. 13:55 PSA/PFS to call Nursing Well Tester, to enter [place] data [place] if patient sd1 involuntarily admitted or transferred for SI or HI ordered. 13:55 Farebox Repairer/Pulse Ox/q 15 min VS ordered. sd1 13:55 Confirm accurate psychiatric medication list and times of last dosage ordered. sd1 13:55 Detain Pt Until Medically/PFS Cleared ordered. sd1 13:55 IV Saline Lock ordered. sd1 13:57 Acetaminophen Level Ordered. EDMS 13:57 Basic Metabolic Profile Ordered. EDMS 13:57 Complete Blood Count Ordered. EDMS 13:57 Drug Eval Toxicology ED Only Ordered. EDMS 13:57 Ethyl Alcohol (ethanol) Ordered. EDMS 13:57 Liver Profile Ordered. EDMS 13:57 Salicylate Level Ordered. EDMS 13:57 Thyroid Stimulating Hormone Ordered. EDMS 14:12 NS 0.9% 1000 ml IV at bolus once ordered. sd1 14:12 Promethazine 25 mg IVP once; dilute and administer 30-60 minutes ordered. sd1 14:13 PT/INR Ordered. EDMS 14:18 PSA/PFS to call Nursing Well Tester, to [place] if patient ck1 involuntarily admitted or transferred for SI or HI complete. 14:18 Consult PFS/PSA/Waiter/Waitress Cafeteria: Patient's case requires discussion with on-call ck1 Psychiatrist complete. 14:18 Consult PFS/PSA/Waiter/Waitress Cafeteria complete. ck1 15:06 Basic Metabolic Profile Reviewed. sd1 15:06 Complete Blood Count Reviewed. sd1 15:06 Drug Eval Toxicology ED Only Reviewed. sd1 15:06 Liver Profile Reviewed. sd1 15:06 Salicylate Level Reviewed. sd1 15:06 Acetaminophen Level Reviewed. sd1 15:06 Ethyl Alcohol (ethanol) Reviewed. sd1 15:06 Thyroid Stimulating Hormone Reviewed. sd1 15:06 PT/INR Reviewed. sd1 16:03 [facility] Payment Agreement was scanned into [employer] and attached to record. dm19 16:04 Financial registration complete. dm19 17:11 NS 0.9% 1000 ml IV at bolus once ordered. ck1 17:13 NS 0.9% 1000 ml IV at bolus once ordered. sd1 17:55 Misc. Nursing Order ordered. sd1 18:10 Redraw Labs ordered. sd1 18:10 Accucheck ordered. sd1 18:11 Redraw Labs complete. lbd 18:14 ACETAMINOPHEN LEVEL Ordered. EDMS 18:21 Fingerstick Blood Sugar Ordered. EDMS 18:25 D50W 50 ml IVP once; (1 amp) ordered. sd1 19:02 ACETAMINOPHEN LEVEL Reviewed. sd1 19:02 Fingerstick Blood Sugar Reviewed. sd1 19:03 Redraw Acetaminophen (put time in details section) ordered. sd1 19:05 Redraw Acetaminophen (put time in details section) complete. sew 19:06 ACETAMINOPHEN LEVEL Ordered. EDMS 21:20 Ambulate Patient to Assess Patient Safety ordered. cs11 22:13 ACETAMINOPHEN LEVEL Reviewed. cs11 22:14 Accucheck ordered. cs11 22:32 Fingerstick Blood Sugar Ordered. EDMS Point of Care Testing: Blood Glucose: 18:15 Blood Glucose: 62 mg/dL; ck1 Ranges: Administered Medications: 14:33 Drug: NS 0.9% 1000 ml [sodium chloride 0.9 % intravenous solution] Route: IV; Rate: ck1 bolus; Site: right antecubital; 17:11 Follow up: IV Status: Completed infusion ck1 14:33 Drug: Promethazine 25 mg [promethazine 25 mg/mL injection solution (1 mL)] Route: IVP; ck1 Site: right antecubital; 17:11 Drug: NS 0.9% 1000 ml [sodium chloride 0.9 % intravenous solution] Route: IV; Rate: ck1 bolus; Site: right antecubital; 17:15 Not Given (Duplicate Order): NS 0.9% 1000 ml IV at bolus once ck1 18:35 Drug: D50W 50 ml [dextrose 50 % in water (D50W) intravenous syringe (50 mL)] Route: ck1 IVP; Site: right antecubital; Signatures: Dispatcher MedHost EDNE Norma Munguia MD MD sd1 Soni Neil, Personal Property Appraiser Unit lbd Nicola Beasley RN RN jmk Kim-Ashcraft, Connie, RN RN ck1 Norma Nolan Craig, DO DO cs11 Mary Ellen Zamora RN RN cf2 Suri Walker dm19 The chart was reviewed and I authenticate all verbal orders and agree with the evaluation and treatment provided.Corrections: (The following items were deleted from the chart) 19:02 19:02 Redraw Acetaminophen (put time in details section) ordered. sd1 sd1 Attachments: 16:03 [facility] Payment Agreement dm19 Chart Complete MTDD
--- NOTE | 2016-11-11 14:58 | EDDOCDS ---
Nurse's Notes [facility] Name: Lianne Saldana Age: 35 yrs Sex: Female : 1980 Arrival Date: 11/07/2016 Time: 13:44 Bed 3 Private MD: Tonya Alvarez Diagnosis: Opioid dependence with intoxication;Hypoglycemia, unspecified Presentation: 11/07 13:46 Presenting complaint: Patient states: states I am going through withdrawals right now. jmk + back pain . and admits to taking 15 Percocet today and has not yet taken her 2nd dose for today. uses heroin, oxy Adderall gabapentin and anything else she can get her hands on. Adult Sepsis Screening: The patient does not have new or worsening altered mentation. Patient's respiratory rate is less than 22. Systolic blood pressure is greater than 100. Patient has a qSOFA score of 0- Negative Sepsis Screen. Suicide/Homicide risk assessment- the patient denies having any suicidal and/or homicidal ideations and does not present with any other emotional, behavioral or mental health complaints. Status: The patient is a dependent. Transition of care: patient was not received from another setting of care. 13:46 Acuity: KRYS Level 3 [facility] 13:46 Method Of Arrival: Ambulance [facility] Triage Assessment: 13:55 General: Appears alert and cooperative. responses slightly slurred. HIV screening [facility] for this visit Offered previously. 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 Latuda 40 mg oral tab 1 tab once daily (Last dose: 11/07/2016 07:00) 2. topiramate 50 mg oral tab (Last dose: 11/07/2016 09:00) 3. Adderall XR 30 mg Oral cp24 1 cap twice a day not taking at this time 4. Valium 10 mg Oral tab states out of valium and adderal , uses them recreationaly and non additional today 5. gabapentin 300 mg Oral cap 3 caps 3 times per day 6. clonidine HCl 0.2 mg Oral tab once daily (Last dose: 11/06/2016) 7. Cipro 500 mg Oral tab 1 tab every 12 hours (Last dose: 11/04/2016) - PMHx: ADHD; Anemia; Anxiety; Depression; Hypoglycemia; insomnia; PTSD; Raynauds; Sciatica; TBI; - PSHx: Cholecystectomy; Tubal ligation; Gastric Bypass; Hysterectomy; - Social history: Smoking status: Patient uses tobacco products, current some day smoker. No barriers to communication noted, The patient speaks fluent Arabic. - Family history: Not pertinent. - : The pt / caregiver states he / she is not on anticoagulants. Home medication list is obtained from the patient. - Exposure Risk Screening:: None identified. Screenin:18 Screening information is obtained from the patient. Fall risk: No risks identified. ck1 Assistance ADL's: requires no assistance with activities of daily living. Abuse/DV Screen: The patient / caregiver reports he/she is: not in a situation that causes fear, pain or injury. Nutritional screening: No deficits noted. Advance Directives: Currently, there is no health care proxy. home support is adequate. Assessment: 14:34 General: Appears distressed, Behavior is anxious, cooperative. Pain: Location: abdomen ck1 Pain currently is 7 out of 10 on a pain scale. Neurological: Level of Consciousness is awake, alert, obeys commands, Oriented to person, place, time. Cardiovascular: Rhythm is sinus rhythm. Respiratory: Respiratory effort is unlabored, Respiratory pattern is regular, symmetrical. GI: Reports nausea. Derm: Skin is pink, warm & dry. Musculoskeletal: Circulation, motion, and sensation intact Range of motion intact in all extremities. 15:35 General: Appears comfortable, Behavior is cooperative, drowsy. Pain: Location: abdomen ck1 Noted to be quiet/stoic. Neurological: Level of Consciousness is awake, alert, obeys commands, Oriented to person, place, time. Cardiovascular: Rhythm is sinus rhythm. Respiratory: Respiratory effort is unlabored, Respiratory pattern is regular, symmetrical. GI: other tolerating regular diet. Derm: Skin is pink, warm & dry. 16:06 General: Patient assisted to bedside commode. Gait unsteady. reports feeling dizzy. ck1 Assisted back to bed, positioned self for comfort. Will continue to monitor patient. 17:11 General: Appears in no apparent distress, Behavior is cooperative, drowsy. Pain: ck1 Location: back. Neurological: Level of Consciousness is awake, alert, obeys commands, Oriented to person, place, time. Cardiovascular: Rhythm is sinus rhythm. Respiratory: Respiratory effort is even, unlabored, Respiratory pattern is regular, symmetrical. GI: No deficits noted. Derm: Skin is pink, warm & dry. 18:05 General: Attempted to ambulate patient, patient drowsy and gait unsteady at this time. ck1 Dr. Bedolla aware. 18:46 General: Appears in no apparent distress, Behavior is drowsy. Pain: Noted to be ck1 quiet/stoic. Neurological: Level of Consciousness is obeys commands. Cardiovascular: Rhythm is sinus rhythm. Respiratory: Respiratory effort is unlabored, Respiratory pattern is regular, symmetrical. GI: No deficits noted. Derm: Skin is pink, warm & dry. Musculoskeletal: Circulation, motion, and sensation intact Range of motion intact in all extremities. 20:00 Reassessment: Patient appears in no apparent distress at this time. Patient denies pain cf2 at this time. Patient states feeling better. Patient states symptoms have improved. 22:15 General: pt ambulated with assistance at this time. rr even and unlabored.. af2 22:27 Reassessment: Patient appears in no apparent distress at this time. Patient denies pain cf2 at this time. Patient states feeling better. Patient states symptoms have improved. 22:28 General: Patient alert and oriented, states she has an appointment "tomorrow to start cf2 Methadone. I have a problem and i just started shooting up this weekend. I was getting almost 60 pills a day, I've been shopping". 22:31 General: Patient eating snack tray. awaiting disposition. cf2 Social Work Consult: 15:52 Social Work Note: Met pt at bedside regarding opiate addiction. Pt reports being sober ml4 from opiates for the past 2 years, until about 3 months ago. Relapse was triggered by disliking the holidays and some relational problems with daughter who resides in a different state. Additionally, pt reports her best friend 2 wks ago from an OD and pt states, "I just miss her so much." States she initially presented to [facility] for an intake to get back into tx, but was sent to [facility] due to taking 15 tablets of Percocet. Pt states, "I take more than that each day since I suffer from so much pain." She also admits to some Heroin abuse when she is unable to obtain Percocet. States she has significant back and hip pain and requires medication. She adamantly denies ingesting medication as a suicide attempt and continues to deny SI and HI. Referrals for outpt services was given at directed to follow up with [facility] for further tx. Vital Signs: 13:55 BP 122 / 62; Pulse 98; Resp 18; Temp 98.7; Pulse Ox 100% ; Weight 112.49 kg; Height 5 jmk ft. 8 in. (172.72 cm); 14:30 BP 106 / 78 (auto/); ck1 14:34 Pulse 90 MON; Pulse Ox 99% ; ck1 15:00 BP 100 / 62 (auto/); ck1 15:00 Pulse 95 MON; Pulse Ox 99% ; ck1 15:30 BP 96 / 50 (auto/); ck1 15:51 BP 103 / 51 (auto/); ck1 15:52 Pulse 110 MON; Pulse Ox 100% ; ck1 16:00 BP 94 / 50 (auto/); ck1 16:00 BP 89 / 45 (auto/); ck1 16:00 Pulse 110 MON; Pulse Ox 91% ; ck1 16:01 Pulse 106 MON; Pulse Ox 96% ; ck1 16:02 Pulse 105 MON; Pulse Ox 100% ; ck1 16:03 Pulse 106 MON; Pulse Ox 100% ; ck1 16:08 BP 103 / 50 (auto/); ck1 16:38 BP 123 / 58 (auto/); ck1 16:53 BP 116 / 59 (auto/); ck1 17:08 BP 111 / 56 (auto/); ck1 17:09 Pulse 114 MON; Pulse Ox 100% ; ck1 17:10 Pulse 114 MON; Pulse Ox 98% ; ck1 17:23 BP 120 / 58 (auto/); ck1 17:38 BP 113 / 56 (auto/); ck1 17:53 BP 101 / 50 (auto/); ck1 17:53 Pulse 108 MON; Pulse Ox 95% ; ck1 17:57 BP 103 / 55 (auto/); ck1 17:57 Pulse 107 MON; Pulse Ox 95% ; ck1 18:03 BP 129 / 80 (auto/); ck1 18:04 Pulse 108 MON; Pulse Ox 99% ; ck1 18:11 BP 103 / 55; Pulse 107; Resp 16; Temp 99.0(O); Pulse Ox 95% on R/A; hs1 18:36 Pulse 95 MON; Pulse Ox 97% ; ck1 18:36 BP 121 / 56 (auto/); ck1 13:55 Body Mass Index 37.71 (112.49 kg, 172.72 cm) [facility] Vitals: 13:55 Log In Time N/A - ambulance arrival. [facility] ED Course: 13:45 Patient visited by Reta Joe PCA. jlf 13:45 Tonya Alvarez MD is Private Physician. jlf 13:45 Patient moved to Waiting jlf 13:46 Pamela Evans,LUNA is Primary Nurse. jlf 13:46 Patient moved to 3 [facility] 13:49 Triage Initiated jmk 14:00 Acetaminophen Level Sent. jmk 14:00 Basic Metabolic Profile Sent. jmk 14:00 Complete Blood Count Sent. jmk 14:00 Ethyl Alcohol (ethanol) Sent. jmk 14:00 Liver Profile Sent. jmk 14:00 Salicylate Level Sent. jmk 14:00 Thyroid Stimulating Hormone Sent. jmk 14:05 Norma Munguia MD is Attending Physician. sd1 14:07 Patient visited by Norma Munguia MD. sd1 14:18 Inserted saline lock: 20 gauge in right antecubital area and blood collected. The ck1 patient tolerated the procedure well. by LUNA German. 14:19 The patient / caregiver is instructed regarding the plan of care and ED course. ck1 14:33 Patient visited by Pamela Evans RN. ck1 14:33 PT/INR Sent. ck1 14:34 Drug Eval Toxicology ED Only Sent. ck1 15:04 Patient visited by Pamela Evans RN. ck1 15:04 box lunch provided. ck1 15:49 Patient visited by Pamela Evans,LUNA. ck1 16:02 Patient visited by Pamela Evans RN. ck1 16:03 [facility] Payment Agreement was scanned into [employer] and attached to record. dm19 16:33 Patient visited by Pamela Evans RN. ck1 17:02 Patient visited by Reta Joe PCA. jlf 17:12 Patient visited by Pamela Evans RN. ck1 17:12 No procedures done that require assistance. ck1 17:43 Patient visited by Pamela Evans RN. ck1 18:04 Patient visited by Pamela Evans RN. ck1 18:23 Patient visited by Pamela Evans RN. ck1 18:23 ACETAMINOPHEN LEVEL Sent. ck1 18:23 Fingerstick Blood Sugar Sent. ck1 18:35 Patient visited by Pamela Evans RN. ck1 18:46 Patient visited by Pamela Evans RN. ck1 18:51 Primary Nurse role handed off by Pamela Evans RN ck1 19:04 Mary Ellen Zamora RN is Primary Nurse. cf2 19:04 Patient visited by Mary Ellen Zamora RN. cf2 19:28 Attending Physician role handed off by Norma Munguia MD cs11 19:28 Kuldeep Limon DO is Attending Physician. cs11 19:35 Patient visited by Mary Ellen Zaomra RN. cf2 20:14 Patient visited by Mary Ellen Zamora RN. cf2 21:12 Patient visited by Mary Ellen Zamora RN. cf2 21:26 ACETAMINOPHEN LEVEL Sent. jlm 21:50 Patient visited by Mary Ellen Zamora RN. cf2 22:16 Patient visited by Olga Phillips RN. af2 Administered Medications: 14:33 Drug: NS 0.9% 1000 ml [sodium chloride 0.9 % intravenous solution] Route: IV; Rate: ck1 bolus; Site: right antecubital; 17:11 Follow up: IV Status: Completed infusion ck1 14:33 Drug: Promethazine 25 mg [promethazine 25 mg/mL injection solution (1 mL)] Route: IVP; ck1 Site: right antecubital; 17:11 Drug: NS 0.9% 1000 ml [sodium chloride 0.9 % intravenous solution] Route: IV; Rate: ck1 bolus; Site: right antecubital; 17:15 Not Given (Duplicate Order): NS 0.9% 1000 ml IV at bolus once ck1 18:35 Drug: D50W 50 ml [dextrose 50 % in water (D50W) intravenous syringe (50 mL)] Route: ck1 IVP; Site: right antecubital; Point of Care Testing: Blood Glucose: 18:15 Blood Glucose: 62 mg/dL; ck1 Ranges: Order Results: Lab Order: Acetaminophen Level; SPEC'M 11/07/16 13:57 Test: ACETAMINOPHEN LEVEL; Value: 20.4; Range: 10.0-30.0; Units: UG/ML; Status: F Lab Order: Basic Metabolic Profile; SPEC'M 11/07/16 13:57 Test: GLUCOSE, FASTING; Value: 46; Range: 70-105; Abnormal: Below low normal; Units: MG/DL; Status: F Test: BLOOD UREA NITROGEN; Value: 12; Range: 7-18; Units: MG/DL; Status: F Test: CREATININE FOR GFR; Value: 1.13; Range: 0.55-1.02; Abnormal: Above high normal; Units: MG/DL; Status: F Test: GLOMERULAR FILTRATION RATE; Value: 57.7; Range: >60; Abnormal: Below low normal; Status: F Test: SODIUM LEVEL; Value: 143; Range: 136-145; Units: MEQ/L; Status: F Test: POTASSIUM SERUM; Value: 3.7; Range: 3.5-5.1; Units: MEQ/L; Status: F Test: CHLORIDE LEVEL; Value: 112; Range: 98-107; Abnormal: Above high normal; Units: MEQ/L; Status: F Test: CARBON DIOXIDE LEVEL; Value: 21; Range: 21-32; Units: MEQ/L; Status: F Test: ANION GAP; Value: 10; Range: 8-16; Units: MEQ/L; Status: F Test: CALCIUM LEVEL; Value: 8.6; Range: 8.5-10.1; Units: MG/DL; Status: F Test Note: ; Units are mL/min/1.73 m2 Chronic Kidney Disease Staging per NKF: Stage I & II GFR >=60 Normal to Mildly Decreased Stage III GFR 30-59 Moderately Decreased Stage IV GFR 15-29 Severely Decreased Stage V GFR <15 Very Little GFR Left ESRD GFR <15 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 Lab Order: Complete Blood Count; SPEC'M 11/07/16 13:57 Test: WHITE BLOOD COUNT; Value: 8.9; Range: 4.0-10.0; Units: K/mm3; Status: F Test: RED BLOOD COUNT; Value: 3.67; Range: 4.00-5.40; Abnormal: Below low normal; Units: M/mm3; Status: F Test: HEMOGLOBIN; Value: 11.1; Range: 12.0-16.0; Abnormal: Below low normal; Units: g/dl; Status: F Test: HEMATOCRIT; Value: 34.6; Range: 36.0-47.0; Abnormal: Below low normal; Units: %; Status: F Test: MEAN CORPUSCULAR VOLUME; Value: 94.1; Range: 80.0-96.0; Units: fl; Status: F Test: MEAN CORPUSCULAR HEMOGLOBIN; Value: 30.4; Range: 27.0-33.0; Units: pg; Status: F Test: MEAN CORPUSCULAR HGB CONC; Value: 32.2; Range: 32.0-36.5; Units: g/dl; Status: F Test: RED CELL DISTRIBUTION WIDTH; Value: 14.4; Range: 11.5-14.5; Units: %; Status: F Test: PLATELET COUNT, AUTOMATED; Value: 273; Range: 150-450; Units: k/mm3; Status: F Lab Order: Drug Eval Toxicology ED Only; SPEC'M 11/07/16 14:32 Test: AMPHETAMINES LEVEL URINE; Value: POSITIVE; Range: NEGATIVE; Abnormal: Above high normal; Status: F Test: BARBITURATES URINE; Value: NEGATIVE; Range: NEGATIVE; Status: F Test: BENZODIAZEPINES URINE; Value: POSITIVE; Range: NEGATIVE; Abnormal: Above high normal; Status: F Test: CANNABINOIDS URINE; Value: NEGATIVE; Range: NEGATIVE; Status: F Test: COCAINE METABOLITE URINE; Value: NEGATIVE; Range: NEGATIVE; Status: F Test: METHADONE URINE; Value: NEGATIVE; Range: NEGATIVE; Status: F Test: OPIATES URINE; Value: POSITIVE; Range: NEGATIVE; Abnormal: Above high normal; Status: F Test: TRICYCLIC ANTIDEPRESS URINE; Value: NEGATIVE; Range: NEGATIVE; Status: F Test Note: ; ALL PRESUMPTIVE POSITIVE FINDINGS ARE UNCONFIRMED NORMAL VALUES THRESHOLD IN NG/ML AMPHETAMINES 1000 METHAMPHETAMINES 1000 BARBITURATES 300 BENZODIAZEPINES 300 CANNABINOIDS (THC) 50 COCAINE METABOLITE 300 METHADONE 300 OPIATES 300 PHENCYCLIDINE 25 TRICYCLIC ANTIDEPRESSANTS 1000 RESULTS ARE FOR MEDICAL PURPOSES ONLY. ALL URINE SPECIMENS WILL BE SAVED FOR 3 DAYS. IF CONFIRMATION OF A PRESUMPTIVE POSTIVE SCREEN RESULT IS DESIRED, CALL CHEMISTRY ([phone]) AND REQUEST URINE TO BE SENT TO REFERENCE LAB. FOR A LIST OF CLOSELY RELATED COMPOUNDS PLEASE CALL THE LAB. Lab Order: Ethyl Alcohol (ethanol); SPEC'M 11/07/16 13:57 Test: ETHYL ALCOHOL (ETHANOL); Value: < 0.003; Range: 0.000-0.010; Units: %; Status: F Lab Order: Liver Profile; SPEC'M 11/07/16 13:57 Test: AST/SGOT; Value: 28; Range: 15-37; Units: U/L; Status: F Test: ALT/SGPT; Value: 21; Range: 12-78; Units: U/L; Status: F Test: ALKALINE PHOSPHATASE; Value: 35; Range: 45-117; Abnormal: Below low normal; Units: U/L; Status: F Test: BILIRUBIN,TOTAL; Value: 0.3; Range: 0.2-1.0; Units: MG/DL; Status: F Test: BILIRUBIN,DIRECT; Value: 0.1; Range: 0.0-0.2; Units: MG/DL; Status: F Test: TOTAL PROTEIN; Value: 7.8; Range: 6.4-8.2; Units: GM/DL; Status: F Test: ALBUMIN; Value: 3.8; Range: 3.2-5.2; Units: GM/DL; Status: F Test: ALBUMIN/GLOBULIN RATIO; Value: 0.95; Range: 1.00-1.93; Abnormal: Below low normal; Status: F Lab Order: Salicylate Level; SPEC'M 11/07/16 13:57 Test: SALICYLATE LEVEL; Value: < 1.7; Range: 5.0-30.0; Abnormal: Below low normal; Units: MG/DL; Status: F Lab Order: Thyroid Stimulating Hormone; SPEC'11/07/16 13:57 Test: THYROID STIMULATING HORMONE; Value: 2.180; Range: 0.358-3.740; Units: uIU/ML; Status: F Lab Order: PT/INR; [facility] 11/07/16 14:32 Test: PROTHROMBIN TIME; Value: 14.0; Range: 12.3-14.5; Units: SECONDS; Status: F Test: INR; Value: 1.07; Status: F Test Note: ; THERAPUTIC HUMAN INR VALUES INDICATIONS NORMAL RANGES PROPHYLAXIS/TREATMENT OF: VENOUS THROMBOSIS 2.0-3.0 PULMONARY EMBOLISM 2.0-3.0 PREVENTION OF SYSTEMIC EMBOLISM FROM: TISSUE HEART VALVES 2.0-3.0 ACUTE MYOCARDIAL INFARCTION 2.0-3.0 VALVULAR HEART DISEASE 2.0-3.0 ATRIAL FIBRILLATION 2.0-3.0 MECHANICAL VALVES(HIGH RISK) 2.5-3.5 RECURRENT MYOCARDIAL INFARCTION 2.5-3.5 Lab Order: ACETAMINOPHEN LEVEL; [facility] 11/07/16 18:22 Test: ACETAMINOPHEN LEVEL; Value: 8.1; Range: 10.0-30.0; Abnormal: Below low normal; Units: UG/ML; Status: F Lab Order: Fingerstick Blood Sugar; [facility] 11/07/16 18:14 Test: BEDSIDE GLUCOSE; Value: 62; Range: 70-105; Abnormal: Below low normal; Units: MG/DL; Status: F Lab Order: ACETAMINOPHEN LEVEL; [facility] 11/07/16 21:25 Test: ACETAMINOPHEN LEVEL; Value: 6.3; Range: 10.0-30.0; Abnormal: Below low normal; Units: UG/ML; Status: F Lab Order: Fingerstick Blood Sugar; [facility] 11/07/16 22:22 Test: BEDSIDE GLUCOSE; Value: 99; Range: 70-105; Units: MG/DL; Status: F Outcome: 17:12 No special radiology studies were completed. ck1 22:34 Discharge ordered by Provider. cs11 23:11 Discharge Assessment: Patient awake, alert and oriented x 3. No cognitive and/or cf2 functional deficits noted. Patient verbalized understanding of disposition instructions. Patient awake and alert. patient administered narcotics - no. The following High Risk Discharge criteria are identified: None. Condition: stable Condition: improved. Discharge instructions given to patient, significant other, Instructed on discharge instructions, follow up and referral plans. Detox facilites, drug rehab centers at patient's request. Property :Personal belongings accompany Pt. 23:12 Patient left the ED. cf2 Signatures: Norma Munguia MD MD sd1 Nicola Beasley,RN RN Pamela Mathis,RN RN ck1 Gillian Peter, PSA PSA ml4 Monserrat Monson, RN RN hs1 Kuldeep Limon, DO DO cs11 Heath, Jordain, TECHNICAL TRANSLATOR TECHNICAL TRANSLATOR jlf Liane Eugene, Floor Service Worker [facility] jl Olga Phillips RN RN af2 Mary Ellen ZamoraRN RN cf2 Yesica Walkerne dm19 Corrections: (The following items were deleted from the chart) 16:04 15:52 Social Work Note: Met pt at bedside regarding opiate addiction. Pt reports being ml4 sober from opiates for the past 2 years, until about 3 months ago. Relapse was triggered by disliking the holidays and some relational problems with daughter who resides in a different state. Additionally, pt reports her best friend 2 wks ago from an OD and pt states, "I just miss her so much." States she initially presented to [facility] for an intake to get back into tx, but was sent to [facility] due to taking 15 tablets of Percocet. Pt states, "I take more than that each day since I suffer from so much pain." She also admits to some Heroin abuse when she is unable to obtain Percocet. She adamantly denies ingesting medication as a suicide attempt and continues to deny SI and HI. Referrals for outpt services was given at directed to follow up with [facility] for further tx. ml4 17:09 15:30 Pulse 101bpm; Monitor; Pulse Ox 53%; ck1 ck1 Chart Complete MTDD
--- NOTE | 2016-11-11 14:58 | EDDOCDS ---
Physician Documentation [facility] Name: Lianne Saldana Age: 35 yrs Sex: Female : 1980 Arrival Date: 11/07/2016 Time: 13:44 Bed 3 Private MD: Tonya Alvarez Disposition: 11/07/16 22:34 Discharged to Home/Self Care. Impression: Opioid dependence with intoxication, Hypoglycemia, unspecified. - Condition is Stable. - Medication Reconciliation, Local Pharmacy Hours form. - Follow up: Private Physician; When: As previously arranged. - Problem is an ongoing problem. - Symptoms have improved. Historical: - Allergies: Bactrim (Hives); Bentyl (Seizures); IV Dye (Rash); NSAIDS (can not take due to gastric bypass)gastric bypas procedure done in 2002; - Home Meds: 1. Latuda 40 mg oral tab 1 tab once daily (Last dose: 11/07/2016 07:00) 2. topiramate 50 mg oral tab (Last dose: 11/07/2016 09:00) 3. Adderall XR 30 mg Oral cp24 1 cap twice a day not taking at this time 4. Valium 10 mg Oral tab states out of valium and adderal , uses them recreationaly and non additional today 5. gabapentin 300 mg Oral cap 3 caps 3 times per day 6. clonidine HCl 0.2 mg Oral tab once daily (Last dose: 11/06/2016) 7. Cipro 500 mg Oral tab 1 tab every 12 hours (Last dose: 11/04/2016) - PMHx: ADHD; Anemia; Anxiety; Depression; Hypoglycemia; insomnia; PTSD; Raynauds; Sciatica; TBI; - PSHx: Cholecystectomy; Tubal ligation; Gastric Bypass; Hysterectomy; - Social history: Smoking status: Patient uses tobacco products, current some day smoker. No barriers to communication noted, The patient speaks fluent Japanese. - Family history: Not pertinent. - : The pt / caregiver states he / she is not on anticoagulants. Home medication list is obtained from the patient. - Exposure Risk Screening:: None identified. 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 8 in. (172.72 cm); 14:30 BP 106 / 78 (auto/); ck1 14:34 Pulse 90 MON; Pulse Ox 99% ; ck1 15:00 BP 100 / 62 (auto/); ck1 15:00 Pulse 95 MON; Pulse Ox 99% ; ck1 15:30 BP 96 / 50 (auto/); ck1 15:51 BP 103 / 51 (auto/); ck1 15:52 Pulse 110 MON; Pulse Ox 100% ; ck1 16:00 BP 94 / 50 (auto/); ck1 16:00 BP 89 / 45 (auto/); ck1 16:00 Pulse 110 MON; Pulse Ox 91% ; ck1 16:01 Pulse 106 MON; Pulse Ox 96% ; ck1 16:02 Pulse 105 MON; Pulse Ox 100% ; ck1 16:03 Pulse 106 MON; Pulse Ox 100% ; ck1 16:08 BP 103 / 50 (auto/); ck1 16:38 BP 123 / 58 (auto/); ck1 16:53 BP 116 / 59 (auto/); ck1 17:08 BP 111 / 56 (auto/); ck1 17:09 Pulse 114 MON; Pulse Ox 100% ; ck1 17:10 Pulse 114 MON; Pulse Ox 98% ; ck1 17:23 BP 120 / 58 (auto/); ck1 17:38 BP 113 / 56 (auto/); ck1 17:53 BP 101 / 50 (auto/); ck1 17:53 Pulse 108 MON; Pulse Ox 95% ; ck1 17:57 BP 103 / 55 (auto/); ck1 17:57 Pulse 107 MON; Pulse Ox 95% ; ck1 18:03 BP 129 / 80 (auto/); ck1 18:04 Pulse 108 MON; Pulse Ox 99% ; ck1 18:11 BP 103 / 55; Pulse 107; Resp 16; Temp 99.0(O); Pulse Ox 95% on R/A; hs1 18:36 Pulse 95 MON; Pulse Ox 97% ; ck1 18:36 BP 121 / 56 (auto/); ck1 13:55 Body Mass Index 37.71 (112.49 kg, 172.72 cm) [facility] MDM: 13:55 Consult PFS/PSA/Volleyball Assembler ordered. sd1 13:55 Consult PFS/PSA/Volleyball Assembler: Patient's case requires discussion with on-call sd1 Psychiatrist ordered. 13:55 PSA/PFS to call Nursing Polishing Wheel Repairer, to enter patient data on [place] if patient sd1 involuntarily admitted or transferred for SI or HI ordered. 13:55 General Lot Attendant/Pulse Ox/q 15 min VS ordered. sd1 13:55 Confirm accurate psychiatric medication list and times of last dosage ordered. sd1 13:55 Detain Pt Until Medically/PFS Cleared ordered. sd1 13:55 IV Saline Lock ordered. sd1 13:57 Acetaminophen Level Ordered. EDMS 13:57 Basic Metabolic Profile Ordered. EDMS 13:57 Complete Blood Count Ordered. EDMS 13:57 Drug Eval Toxicology ED Only Ordered. EDMS 13:57 Ethyl Alcohol (ethanol) Ordered. EDMS 13:57 Liver Profile Ordered. EDMS 13:57 Salicylate Level Ordered. EDMS 13:57 Thyroid Stimulating Hormone Ordered. EDMS 14:12 NS 0.9% 1000 ml IV at bolus once ordered. sd1 14:12 Promethazine 25 mg IVP once; dilute and administer 30-60 minutes ordered. sd1 14:13 PT/INR Ordered. EDMS 14:18 PSA/PFS to call Nursing Polishing Wheel Repairer, to enter patient data [place] if patient ck1 involuntarily admitted or transferred for SI or HI complete. 14:18 Consult PFS/PSA/Volleyball Assembler: Patient's case requires discussion with on-call ck1 Psychiatrist complete. 14:18 Consult PFS/PSA/Volleyball Assembler complete. ck1 15:06 Basic Metabolic Profile Reviewed. sd1 15:06 Complete Blood Count Reviewed. sd1 15:06 Drug Eval Toxicology ED Only Reviewed. sd1 15:06 Liver Profile Reviewed. sd1 15:06 Salicylate Level Reviewed. sd1 15:06 Acetaminophen Level Reviewed. sd1 15:06 Ethyl Alcohol (ethanol) Reviewed. sd1 15:06 Thyroid Stimulating Hormone Reviewed. sd1 15:06 PT/INR Reviewed. sd1 16:03 [facility] [place] Agreement was scanned into [employer] and attached to record. dm19 16:04 Financial registration complete. dm19 17:11 NS 0.9% 1000 ml IV at bolus once ordered. ck1 17:13 NS 0.9% 1000 ml IV at bolus once ordered. sd1 17:55 Misc. Nursing Order ordered. sd1 18:10 Redraw Labs ordered. sd1 18:10 Accucheck ordered. sd1 18:11 Redraw Labs complete. lbd 18:14 ACETAMINOPHEN LEVEL Ordered. EDMS 18:21 Fingerstick Blood Sugar Ordered. EDMS 18:25 D50W 50 ml IVP once; (1 amp) ordered. sd1 19:02 ACETAMINOPHEN LEVEL Reviewed. sd1 19:02 Fingerstick Blood Sugar Reviewed. sd1 19:03 Redraw Acetaminophen (put time in details section) ordered. sd1 19:05 Redraw Acetaminophen (put time in details section) complete. sew 19:06 ACETAMINOPHEN LEVEL Ordered. EDMS 21:20 Ambulate Patient to Assess Patient Safety ordered. cs11 22:13 ACETAMINOPHEN LEVEL Reviewed. cs11 22:14 Accucheck ordered. cs11 22:32 Fingerstick Blood Sugar Ordered. EDMS Point of Care Testing: Blood Glucose: 18:15 Blood Glucose: 62 mg/dL; ck1 Ranges: Administered Medications: 14:33 Drug: NS 0.9% 1000 ml [sodium chloride 0.9 % intravenous solution] Route: IV; Rate: ck1 bolus; Site: right antecubital; 17:11 Follow up: IV Status: Completed infusion ck1 14:33 Drug: Promethazine 25 mg [promethazine 25 mg/mL injection solution (1 mL)] Route: IVP; ck1 Site: right antecubital; 17:11 Drug: NS 0.9% 1000 ml [sodium chloride 0.9 % intravenous solution] Route: IV; Rate: ck1 bolus; Site: right antecubital; 17:15 Not Given (Duplicate Order): NS 0.9% 1000 ml IV at bolus once ck1 18:35 Drug: D50W 50 ml [dextrose 50 % in water (D50W) intravenous syringe (50 mL)] Route: ck1 IVP; Site: right antecubital; Signatures: Dispatcher [employer] EDOH Norma Munguia MD MD sd1 Soni Neil, Clay Press Operator Unit lbd Nicola Beasley RN RN jmk Kim-Ashcraft, Connie, RN RN ck1 Norma Nolan Craig, DO DO cs11 Mary Ellen Zamora RN RN cf2 Suri Walker dm19 The chart was reviewed and I authenticate all verbal orders and agree with the evaluation and treatment provided.Corrections: (The following items were deleted from the chart) 19:02 19:02 Redraw Acetaminophen (put time in details section) ordered. sd1 sd1 Attachments: 16:03 [facility] Payment Agreement dm19 Chart Complete MTDD
--- NOTE | 2016-11-13 11:09 | EDDOCDS ---
Physician Documentation [facility] Name: Lianne Saldana Age: 35 yrs Sex: Female : 1980 Arrival Date: 11/07/2016 Time: 13:44 Bed 3 Private MD: Tonya Alvarez Disposition: 11/07/16 22:34 Discharged to Home/Self Care. Impression: Opioid dependence with intoxication, Hypoglycemia, unspecified. - Condition is Stable. - Medication Reconciliation, Local Pharmacy Hours form. - Follow up: Private Physician; When: As previously arranged. - Problem is an ongoing problem. - Symptoms have improved. Historical: - Allergies: Bactrim (Hives); Bentyl (Seizures); IV Dye (Rash); NSAIDS (can not take due to gastric bypass)gastric bypas procedure done in 2002; - Home Meds: 1. Latuda 40 mg oral tab 1 tab once daily (Last dose: 11/07/2016 07:00) 2. topiramate 50 mg oral tab (Last dose: 11/07/2016 09:00) 3. Adderall XR 30 mg Oral cp24 1 cap twice a day not taking at this time 4. Valium 10 mg Oral tab states out of valium and adderal , uses them recreationaly and non additional today 5. gabapentin 300 mg Oral cap 3 caps 3 times per day 6. clonidine HCl 0.2 mg Oral tab once daily (Last dose: 11/06/2016) 7. Cipro 500 mg Oral tab 1 tab every 12 hours (Last dose: 11/04/2016) - PMHx: ADHD; Anemia; Anxiety; Depression; Hypoglycemia; insomnia; PTSD; Raynauds; Sciatica; TBI; - PSHx: Cholecystectomy; Tubal ligation; Gastric Bypass; Hysterectomy; - Social history: Smoking status: Patient uses tobacco products, current some day smoker. No barriers to communication noted, The patient speaks fluent American. - Family history: Not pertinent. - : The pt / caregiver states he / she is not on anticoagulants. Home medication list is obtained from the patient. - Exposure Risk Screening:: None identified. 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 8 in. (172.72 cm); 14:30 BP 106 / 78 (auto/); ck1 14:34 Pulse 90 MON; Pulse Ox 99% ; ck1 15:00 BP 100 / 62 (auto/); ck1 15:00 Pulse 95 MON; Pulse Ox 99% ; ck1 15:30 BP 96 / 50 (auto/); ck1 15:51 BP 103 / 51 (auto/); ck1 15:52 Pulse 110 MON; Pulse Ox 100% ; ck1 16:00 BP 94 / 50 (auto/); ck1 16:00 BP 89 / 45 (auto/); ck1 16:00 Pulse 110 MON; Pulse Ox 91% ; ck1 16:01 Pulse 106 MON; Pulse Ox 96% ; ck1 16:02 Pulse 105 MON; Pulse Ox 100% ; ck1 16:03 Pulse 106 MON; Pulse Ox 100% ; ck1 16:08 BP 103 / 50 (auto/); ck1 16:38 BP 123 / 58 (auto/); ck1 16:53 BP 116 / 59 (auto/); ck1 17:08 BP 111 / 56 (auto/); ck1 17:09 Pulse 114 MON; Pulse Ox 100% ; ck1 17:10 Pulse 114 MON; Pulse Ox 98% ; ck1 17:23 BP 120 / 58 (auto/); ck1 17:38 BP 113 / 56 (auto/); ck1 17:53 BP 101 / 50 (auto/); ck1 17:53 Pulse 108 MON; Pulse Ox 95% ; ck1 17:57 BP 103 / 55 (auto/); ck1 17:57 Pulse 107 MON; Pulse Ox 95% ; ck1 18:03 BP 129 / 80 (auto/); ck1 18:04 Pulse 108 MON; Pulse Ox 99% ; ck1 18:11 BP 103 / 55; Pulse 107; Resp 16; Temp 99.0(O); Pulse Ox 95% on R/A; hs1 18:36 Pulse 95 MON; Pulse Ox 97% ; ck1 18:36 BP 121 / 56 (auto/); ck1 13:55 Body Mass Index 37.71 (112.49 kg, 172.72 cm) [facility] MDM: 13:55 Consult PFS/PSA/Heel Scorer ordered. sd1 13:55 Consult PFS/PSA/Heel Scorer: Patient's case requires discussion with on-call sd1 Psychiatrist ordered. 13:55 PSA/PFS to call Nursing Power Digger Operator, to enter patient data on [place] if patient sd1 involuntarily admitted or transferred for SI or HI ordered. 13:55 Plastics Fabricator And Assembler/Pulse Ox/q 15 min VS ordered. sd1 13:55 Confirm accurate psychiatric medication list and times of last dosage ordered. sd1 13:55 Detain Pt Until Medically/PFS Cleared ordered. sd1 13:55 IV Saline Lock ordered. sd1 13:57 Acetaminophen Level Ordered. EDMS 13:57 Basic Metabolic Profile Ordered. EDMS 13:57 Complete Blood Count Ordered. EDMS 13:57 Drug Eval Toxicology ED Only Ordered. EDMS 13:57 Ethyl Alcohol (ethanol) Ordered. EDMS 13:57 Liver Profile Ordered. EDMS 13:57 Salicylate Level Ordered. EDMS 13:57 Thyroid Stimulating Hormone Ordered. EDMS 14:12 NS 0.9% 1000 ml IV at bolus once ordered. sd1 14:12 Promethazine 25 mg IVP once; dilute and administer 30-60 minutes ordered. sd1 14:13 PT/INR Ordered. EDMS 14:18 PSA/PFS to call Nursing Power Digger Operator, to enter [place] data [place] if patient ck1 involuntarily admitted or transferred for SI or HI complete. 14:18 Consult PFS/PSA/Heel Scorer: Patient's case requires discussion with on-call ck1 Psychiatrist complete. 14:18 Consult PFS/PSA/Heel Scorer complete. ck1 15:06 Basic Metabolic Profile Reviewed. sd1 15:06 Complete Blood Count Reviewed. sd1 15:06 Drug Eval Toxicology ED Only Reviewed. sd1 15:06 Liver Profile Reviewed. sd1 15:06 Salicylate Level Reviewed. sd1 15:06 Acetaminophen Level Reviewed. sd1 15:06 Ethyl Alcohol (ethanol) Reviewed. sd1 15:06 Thyroid Stimulating Hormone Reviewed. sd1 15:06 PT/INR Reviewed. sd1 16:03 [facility] [place] [place] Payment Agreement was scanned into [employer] and attached to record. dm19 16:04 Financial registration complete. dm19 17:11 NS 0.9% 1000 ml IV at bolus once ordered. ck1 17:13 NS 0.9% 1000 ml IV at bolus once ordered. sd1 17:55 Misc. Nursing Order ordered. sd1 18:10 Redraw Labs ordered. sd1 18:10 Accucheck ordered. sd1 18:11 Redraw Labs complete. lbd 18:14 ACETAMINOPHEN LEVEL Ordered. EDMS 18:21 Fingerstick Blood Sugar Ordered. EDMS 18:25 D50W 50 ml IVP once; (1 amp) ordered. sd1 19:02 ACETAMINOPHEN LEVEL Reviewed. sd1 19:02 Fingerstick Blood Sugar Reviewed. sd1 19:03 Redraw Acetaminophen (put time in details section) ordered. sd1 19:05 Redraw Acetaminophen (put time in details section) complete. sew 19:06 ACETAMINOPHEN LEVEL Ordered. EDMS 21:20 Ambulate Patient to Assess Patient Safety ordered. cs11 22:13 ACETAMINOPHEN LEVEL Reviewed. cs11 22:14 Accucheck ordered. cs11 22:32 Fingerstick Blood Sugar Ordered. EDMS Point of Care Testing: Blood Glucose: 18:15 Blood Glucose: 62 mg/dL; ck1 Ranges: Administered Medications: 14:33 Drug: NS 0.9% 1000 ml [sodium chloride 0.9 % intravenous solution] Route: IV; Rate: ck1 bolus; Site: right antecubital; 17:11 Follow up: IV Status: Completed infusion ck1 14:33 Drug: Promethazine 25 mg [promethazine 25 mg/mL injection solution (1 mL)] Route: IVP; ck1 Site: right antecubital; 17:11 Drug: NS 0.9% 1000 ml [sodium chloride 0.9 % intravenous solution] Route: IV; Rate: ck1 bolus; Site: right antecubital; 17:15 Not Given (Duplicate Order): NS 0.9% 1000 ml IV at bolus once ck1 18:35 Drug: D50W 50 ml [dextrose 50 % in water (D50W) intravenous syringe (50 mL)] Route: ck1 IVP; Site: right antecubital; Signatures: Dispatcher [employer] EDWI Norma Munguia MD MD sd1 Soni Neil, Research Laboratory Manager Unit lbd Nicola Beasley RN RN jmk Kim-Ashcraft, Connie, RN RN ck1 Norma Nolan Craig, DO DO cs11 Mary Ellen Zamora RN RN cf2 Suri Walker dm19 The chart was reviewed and I authenticate all verbal orders and agree with the evaluation and treatment provided.Corrections: (The following items were deleted from the chart) 19:02 19:02 Redraw Acetaminophen (put time in details section) ordered. sd1 sd1 Attachments: 16:03 [facility] Payment Agreement dm19 Chart Complete MTDD
--- NOTE | 2016-11-13 11:09 | EDDOCDS ---
Physician Documentation [facility] Name: Lianne Saldana Age: 35 yrs Sex: Female : 1980 Arrival Date: 11/07/2016 Time: 13:44 Bed 3 Private MD: Tonya Alvarez Disposition: 11/07/16 22:34 Discharged to Home/Self Care. Impression: Opioid dependence with intoxication, Hypoglycemia, unspecified. - Condition is Stable. - Medication Reconciliation, Local Pharmacy Hours form. - Follow up: Private Physician; When: As previously arranged. - Problem is an ongoing problem. - Symptoms have improved. Historical: - Allergies: Bactrim (Hives); Bentyl (Seizures); IV Dye (Rash); NSAIDS (can not take due to gastric bypass)gastric bypas procedure done in 2002; - Home Meds: 1. Latuda 40 mg oral tab 1 tab once daily (Last dose: 11/07/2016 07:00) 2. topiramate 50 mg oral tab (Last dose: 11/07/2016 09:00) 3. Adderall XR 30 mg Oral cp24 1 cap twice a day not taking at this time 4. Valium 10 mg Oral tab states out of valium and adderal , uses them recreationaly and non additional today 5. gabapentin 300 mg Oral cap 3 caps 3 times per day 6. clonidine HCl 0.2 mg Oral tab once daily (Last dose: 11/06/2016) 7. Cipro 500 mg Oral tab 1 tab every 12 hours (Last dose: 11/04/2016) - PMHx: ADHD; Anemia; Anxiety; Depression; Hypoglycemia; insomnia; PTSD; Raynauds; Sciatica; TBI; - PSHx: Cholecystectomy; Tubal ligation; Gastric Bypass; Hysterectomy; - Social history: Smoking status: Patient uses tobacco products, current some day smoker. No barriers to communication noted, The patient speaks fluent Congolese. - Family history: Not pertinent. - : The pt / caregiver states he / she is not on anticoagulants. Home medication list is obtained from the patient. - Exposure Risk Screening:: None identified. 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 8 in. (172.72 cm); 14:30 BP 106 / 78 (auto/); ck1 14:34 Pulse 90 MON; Pulse Ox 99% ; ck1 15:00 BP 100 / 62 (auto/); ck1 15:00 Pulse 95 MON; Pulse Ox 99% ; ck1 15:30 BP 96 / 50 (auto/); ck1 15:51 BP 103 / 51 (auto/); ck1 15:52 Pulse 110 MON; Pulse Ox 100% ; ck1 16:00 BP 94 / 50 (auto/); ck1 16:00 BP 89 / 45 (auto/); ck1 16:00 Pulse 110 MON; Pulse Ox 91% ; ck1 16:01 Pulse 106 MON; Pulse Ox 96% ; ck1 16:02 Pulse 105 MON; Pulse Ox 100% ; ck1 16:03 Pulse 106 MON; Pulse Ox 100% ; ck1 16:08 BP 103 / 50 (auto/); ck1 16:38 BP 123 / 58 (auto/); ck1 16:53 BP 116 / 59 (auto/); ck1 17:08 BP 111 / 56 (auto/); ck1 17:09 Pulse 114 MON; Pulse Ox 100% ; ck1 17:10 Pulse 114 MON; Pulse Ox 98% ; ck1 17:23 BP 120 / 58 (auto/); ck1 17:38 BP 113 / 56 (auto/); ck1 17:53 BP 101 / 50 (auto/); ck1 17:53 Pulse 108 MON; Pulse Ox 95% ; ck1 17:57 BP 103 / 55 (auto/); ck1 17:57 Pulse 107 MON; Pulse Ox 95% ; ck1 18:03 BP 129 / 80 (auto/); ck1 18:04 Pulse 108 MON; Pulse Ox 99% ; ck1 18:11 BP 103 / 55; Pulse 107; Resp 16; Temp 99.0(O); Pulse Ox 95% on R/A; hs1 18:36 Pulse 95 MON; Pulse Ox 97% ; ck1 18:36 BP 121 / 56 (auto/); ck1 13:55 Body Mass Index 37.71 (112.49 kg, 172.72 cm) [facility] MDM: 13:55 Consult PFS/PSA/Political Organizer ordered. sd1 13:55 Consult PFS/PSA/Political Organizer: Patient's case requires discussion with on-call sd1 Psychiatrist ordered. 13:55 PSA/PFS to call Nursing Pump Installation And Servicer, to enter [place] data [place] if patient sd1 involuntarily admitted or transferred for SI or HI ordered. 13:55 Invoice Classification Clerk/Pulse Ox/q 15 min VS ordered. sd1 13:55 Confirm accurate psychiatric medication list and times of last dosage ordered. sd1 13:55 Detain Pt Until Medically/PFS Cleared ordered. sd1 13:55 IV Saline Lock ordered. sd1 13:57 Acetaminophen Level Ordered. EDMS 13:57 Basic Metabolic Profile Ordered. EDMS 13:57 Complete Blood Count Ordered. EDMS 13:57 Drug Eval Toxicology ED Only Ordered. EDMS 13:57 Ethyl Alcohol (ethanol) Ordered. EDMS 13:57 Liver Profile Ordered. EDMS 13:57 Salicylate Level Ordered. EDMS 13:57 Thyroid Stimulating Hormone Ordered. EDMS 14:12 NS 0.9% 1000 ml IV at bolus once ordered. sd1 14:12 Promethazine 25 mg IVP once; dilute and administer 30-60 minutes ordered. sd1 14:13 PT/INR Ordered. EDMS 14:18 PSA/PFS to call Nursing Pump Installation And Servicer, to enter [place] if patient ck1 involuntarily admitted or transferred for SI or HI complete. 14:18 Consult PFS/PSA/Political Organizer: Patient's case requires discussion with on-call ck1 Psychiatrist complete. 14:18 Consult PFS/PSA/Political Organizer complete. ck1 15:06 Basic Metabolic Profile Reviewed. sd1 15:06 Complete Blood Count Reviewed. sd1 15:06 Drug Eval Toxicology ED Only Reviewed. sd1 15:06 Liver Profile Reviewed. sd1 15:06 Salicylate Level Reviewed. sd1 15:06 Acetaminophen Level Reviewed. sd1 15:06 Ethyl Alcohol (ethanol) Reviewed. sd1 15:06 Thyroid Stimulating Hormone Reviewed. sd1 15:06 PT/INR Reviewed. sd1 16:03 [facility] [place] Payment Agreement was scanned into [employer] and attached to record. dm19 16:04 Financial registration complete. dm19 17:11 NS 0.9% 1000 ml IV at bolus once ordered. ck1 17:13 NS 0.9% 1000 ml IV at bolus once ordered. sd1 17:55 Misc. Nursing Order ordered. sd1 18:10 Redraw Labs ordered. sd1 18:10 Accucheck ordered. sd1 18:11 Redraw Labs complete. lbd 18:14 ACETAMINOPHEN LEVEL Ordered. EDMS 18:21 Fingerstick Blood Sugar Ordered. EDMS 18:25 D50W 50 ml IVP once; (1 amp) ordered. sd1 19:02 ACETAMINOPHEN LEVEL Reviewed. sd1 19:02 Fingerstick Blood Sugar Reviewed. sd1 19:03 Redraw Acetaminophen (put time in details section) ordered. sd1 19:05 Redraw Acetaminophen (put time in details section) complete. sew 19:06 ACETAMINOPHEN LEVEL Ordered. EDMS 21:20 Ambulate Patient to Assess Patient Safety ordered. cs11 22:13 ACETAMINOPHEN LEVEL Reviewed. cs11 22:14 Accucheck ordered. cs11 22:32 Fingerstick Blood Sugar Ordered. EDMS Point of Care Testing: Blood Glucose: 18:15 Blood Glucose: 62 mg/dL; ck1 Ranges: Administered Medications: 14:33 Drug: NS 0.9% 1000 ml [sodium chloride 0.9 % intravenous solution] Route: IV; Rate: ck1 bolus; Site: right antecubital; 17:11 Follow up: IV Status: Completed infusion ck1 14:33 Drug: Promethazine 25 mg [promethazine 25 mg/mL injection solution (1 mL)] Route: IVP; ck1 Site: right antecubital; 17:11 Drug: NS 0.9% 1000 ml [sodium chloride 0.9 % intravenous solution] Route: IV; Rate: ck1 bolus; Site: right antecubital; 17:15 Not Given (Duplicate Order): NS 0.9% 1000 ml IV at bolus once ck1 18:35 Drug: D50W 50 ml [dextrose 50 % in water (D50W) intravenous syringe (50 mL)] Route: ck1 IVP; Site: right antecubital; Signatures: Dispatcher [employer] EDIA Norma Munguia MD MD sd1 Soni Neil, Lithographic General Worker Unit lbd Nicola Beasley RN RN jmk Kim-Ashcraft, Connie, RN RN ck1 Norma Nolan Craig, DO DO cs11 Mary Ellen Zamora RN RN cf2 Suri Walker dm19 The chart was reviewed and I authenticate all verbal orders and agree with the evaluation and treatment provided.Corrections: (The following items were deleted from the chart) 19:02 19:02 Redraw Acetaminophen (put time in details section) ordered. sd1 sd1 Attachments: 16:03 [facility] Payment Agreement dm19 Chart Complete MTDD
--- NOTE | 2016-11-13 11:09 | EDDOCDS ---
Nurse's Notes [facility] Name: Lianne Saldana Age: 35 yrs Sex: Female : 1980 Arrival Date: 11/07/2016 Time: 13:44 Bed 3 Private MD: Tonya Alvarez Diagnosis: Opioid dependence with intoxication;Hypoglycemia, unspecified Presentation: 11/07 13:46 Presenting complaint: Patient states: states I am going through withdrawals right now. jmk + back pain . and admits to taking 15 Percocet today and has not yet taken her 2nd dose for today. uses heroin, oxy Adderall gabapentin and anything else she can get her hands on. Adult Sepsis Screening: The patient does not have new or worsening altered mentation. Patient's respiratory rate is less than 22. Systolic blood pressure is greater than 100. Patient has a qSOFA score of 0- Negative Sepsis Screen. Suicide/Homicide risk assessment- the patient denies having any suicidal and/or homicidal ideations and does not present with any other emotional, behavioral or mental health complaints. Status: The patient is a dependent. Transition of care: patient was not received from another setting of care. 13:46 Acuity: KRYS Level 3 [facility] 13:46 Method Of Arrival: Ambulance [facility] Triage Assessment: 13:55 General: Appears alert and cooperative. responses slightly slurred. HIV screening [facility] for this visit Offered previously. 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 Latuda 40 mg oral tab 1 tab once daily (Last dose: 11/07/2016 07:00) 2. topiramate 50 mg oral tab (Last dose: 11/07/2016 09:00) 3. Adderall XR 30 mg Oral cp24 1 cap twice a day not taking at this time 4. Valium 10 mg Oral tab states out of valium and adderal , uses them recreationaly and non additional today 5. gabapentin 300 mg Oral cap 3 caps 3 times per day 6. clonidine HCl 0.2 mg Oral tab once daily (Last dose: 11/06/2016) 7. Cipro 500 mg Oral tab 1 tab every 12 hours (Last dose: 11/04/2016) - PMHx: ADHD; Anemia; Anxiety; Depression; Hypoglycemia; insomnia; PTSD; Raynauds; Sciatica; TBI; - PSHx: Cholecystectomy; Tubal ligation; Gastric Bypass; Hysterectomy; - Social history: Smoking status: Patient uses tobacco products, current some day smoker. No barriers to communication noted, The patient speaks fluent Belarusian. - Family history: Not pertinent. - : The pt / caregiver states he / she is not on anticoagulants. Home medication list is obtained from the patient. - Exposure Risk Screening:: None identified. Screenin:18 Screening information is obtained from the patient. Fall risk: No risks identified. ck1 Assistance ADL's: requires no assistance with activities of daily living. Abuse/DV Screen: The patient / caregiver reports he/she is: not in a situation that causes fear, pain or injury. Nutritional screening: No deficits noted. Advance Directives: Currently, there is no health care proxy. home support is adequate. Assessment: 14:34 General: Appears distressed, Behavior is anxious, cooperative. Pain: Location: abdomen ck1 Pain currently is 7 out of 10 on a pain scale. Neurological: Level of Consciousness is awake, alert, obeys commands, Oriented to person, place, time. Cardiovascular: Rhythm is sinus rhythm. Respiratory: Respiratory effort is unlabored, Respiratory pattern is regular, symmetrical. GI: Reports nausea. Derm: Skin is pink, warm & dry. Musculoskeletal: Circulation, motion, and sensation intact Range of motion intact in all extremities. 15:35 General: Appears comfortable, Behavior is cooperative, drowsy. Pain: Location: abdomen ck1 Noted to be quiet/stoic. Neurological: Level of Consciousness is awake, alert, obeys commands, Oriented to person, place, time. Cardiovascular: Rhythm is sinus rhythm. Respiratory: Respiratory effort is unlabored, Respiratory pattern is regular, symmetrical. GI: other tolerating regular diet. Derm: Skin is pink, warm & dry. 16:06 General: Patient assisted to bedside commode. Gait unsteady. reports feeling dizzy. ck1 Assisted back to bed, positioned self for comfort. Will continue to monitor patient. 17:11 General: Appears in no apparent distress, Behavior is cooperative, drowsy. Pain: ck1 Location: back. Neurological: Level of Consciousness is awake, alert, obeys commands, Oriented to person, place, time. Cardiovascular: Rhythm is sinus rhythm. Respiratory: Respiratory effort is even, unlabored, Respiratory pattern is regular, symmetrical. GI: No deficits noted. Derm: Skin is pink, warm & dry. 18:05 General: Attempted to ambulate patient, patient drowsy and gait unsteady at this time. ck1 Dr. Bedolla aware. 18:46 General: Appears in no apparent distress, Behavior is drowsy. Pain: Noted to be ck1 quiet/stoic. Neurological: Level of Consciousness is obeys commands. Cardiovascular: Rhythm is sinus rhythm. Respiratory: Respiratory effort is unlabored, Respiratory pattern is regular, symmetrical. GI: No deficits noted. Derm: Skin is pink, warm & dry. Musculoskeletal: Circulation, motion, and sensation intact Range of motion intact in all extremities. 20:00 Reassessment: Patient appears in no apparent distress at this time. Patient denies pain cf2 at this time. Patient states feeling better. Patient states symptoms have improved. 22:15 General: pt ambulated with assistance at this time. rr even and unlabored.. af2 22:27 Reassessment: Patient appears in no apparent distress at this time. Patient denies pain cf2 at this time. Patient states feeling better. Patient states symptoms have improved. 22:28 General: Patient alert and oriented, states she has an appointment "tomorrow to start cf2 Methadone. I have a problem and i just started shooting up this weekend. I was getting almost 60 pills a day, I've been shopping". 22:31 General: Patient eating snack tray. awaiting disposition. cf2 Social Work Consult: 15:52 Social Work Note: Met pt at bedside regarding opiate addiction. Pt reports being sober ml4 from opiates for the past 2 years, until about 3 months ago. Relapse was triggered by disliking the holidays and some relational problems with daughter who resides in a different state. Additionally, pt reports her best friend 2 wks ago from an OD and pt states, "I just miss her so much." States she initially presented to [facility] for an intake to get back into tx, but was sent to [facility] due to taking 15 tablets of Percocet. Pt states, "I take more than that each day since I suffer from so much pain." She also admits to some Heroin abuse when she is unable to obtain Percocet. States she has significant back and hip pain and requires medication. She adamantly denies ingesting medication as a suicide attempt and continues to deny SI and HI. Referrals for outpt services was given at directed to follow up with [facility] for further tx. Vital Signs: 13:55 BP 122 / 62; Pulse 98; Resp 18; Temp 98.7; Pulse Ox 100% ; Weight 112.49 kg; Height 5 jmk ft. 8 in. (172.72 cm); 14:30 BP 106 / 78 (auto/); ck1 14:34 Pulse 90 MON; Pulse Ox 99% ; ck1 15:00 BP 100 / 62 (auto/); ck1 15:00 Pulse 95 MON; Pulse Ox 99% ; ck1 15:30 BP 96 / 50 (auto/); ck1 15:51 BP 103 / 51 (auto/); ck1 15:52 Pulse 110 MON; Pulse Ox 100% ; ck1 16:00 BP 94 / 50 (auto/); ck1 16:00 BP 89 / 45 (auto/); ck1 16:00 Pulse 110 MON; Pulse Ox 91% ; ck1 16:01 Pulse 106 MON; Pulse Ox 96% ; ck1 16:02 Pulse 105 MON; Pulse Ox 100% ; ck1 16:03 Pulse 106 MON; Pulse Ox 100% ; ck1 16:08 BP 103 / 50 (auto/); ck1 16:38 BP 123 / 58 (auto/); ck1 16:53 BP 116 / 59 (auto/); ck1 17:08 BP 111 / 56 (auto/); ck1 17:09 Pulse 114 MON; Pulse Ox 100% ; ck1 17:10 Pulse 114 MON; Pulse Ox 98% ; ck1 17:23 BP 120 / 58 (auto/); ck1 17:38 BP 113 / 56 (auto/); ck1 17:53 BP 101 / 50 (auto/); ck1 17:53 Pulse 108 MON; Pulse Ox 95% ; ck1 17:57 BP 103 / 55 (auto/); ck1 17:57 Pulse 107 MON; Pulse Ox 95% ; ck1 18:03 BP 129 / 80 (auto/); ck1 18:04 Pulse 108 MON; Pulse Ox 99% ; ck1 18:11 BP 103 / 55; Pulse 107; Resp 16; Temp 99.0(O); Pulse Ox 95% on R/A; hs1 18:36 Pulse 95 MON; Pulse Ox 97% ; ck1 18:36 BP 121 / 56 (auto/); ck1 13:55 Body Mass Index 37.71 (112.49 kg, 172.72 cm) [facility] Vitals: 13:55 Log In Time N/A - ambulance arrival. [facility] ED Course: 13:45 Patient visited by Reta Joe PCA. jlf 13:45 Tonya Alvarez MD is Private Physician. jlf 13:45 Patient moved to Waiting jlf 13:46 Pamela Evans,LUNA is Primary Nurse. jlf 13:46 Patient moved to 3 [facility] 13:49 Triage Initiated jmk 14:00 Acetaminophen Level Sent. jmk 14:00 Basic Metabolic Profile Sent. jmk 14:00 Complete Blood Count Sent. jmk 14:00 Ethyl Alcohol (ethanol) Sent. jmk 14:00 Liver Profile Sent. jmk 14:00 Salicylate Level Sent. jmk 14:00 Thyroid Stimulating Hormone Sent. jmk 14:05 Norma Munguia MD is Attending Physician. sd1 14:07 Patient visited by Norma Munguia MD. sd1 14:18 Inserted saline lock: 20 gauge in right antecubital area and blood collected. The ck1 patient tolerated the procedure well. by LUNA German. 14:19 The patient / caregiver is instructed regarding the plan of care and ED course. ck1 14:33 Patient visited by Pamela Evans RN. ck1 14:33 PT/INR Sent. ck1 14:34 Drug Eval Toxicology ED Only Sent. ck1 15:04 Patient visited by Pamela Evans RN. ck1 15:04 box lunch provided. ck1 15:49 Patient visited by Pamela Evans,LUNA. ck1 16:02 Patient visited by Pamela Evans RN. ck1 16:03 [facility] Payment Agreement was scanned into [employer] and attached to record. dm19 16:33 Patient visited by Pamela Evans RN. ck1 17:02 Patient visited by Reta Joe PCA. jlf 17:12 Patient visited by Pamela Evans RN. ck1 17:12 No procedures done that require assistance. ck1 17:43 Patient visited by Pamela Evans RN. ck1 18:04 Patient visited by Pamela Evans RN. ck1 18:23 Patient visited by Pamela Evnas RN. ck1 18:23 ACETAMINOPHEN LEVEL Sent. ck1 18:23 Fingerstick Blood Sugar Sent. ck1 18:35 Patient visited by Pamela Evans RN. ck1 18:46 Patient visited by Pamela Evans RN. ck1 18:51 Primary Nurse role handed off by Pamela Evans RN ck1 19:04 Mary Ellen Zamora RN is Primary Nurse. cf2 19:04 Patient visited by Mary Ellen Zamora RN. cf2 19:28 Attending Physician role handed off by Norma Munguia MD cs11 19:28 Kuldeep Limon DO is Attending Physician. cs11 19:35 Patient visited by Mary Ellen Zamora RN. cf2 20:14 Patient visited by Mary Ellen Zamora RN. cf2 21:12 Patient visited by Mary Ellen Zamora RN. cf2 21:26 ACETAMINOPHEN LEVEL Sent. jlm 21:50 Patient visited by Mary Ellen Zamora RN. cf2 22:16 Patient visited by Olga Phillips RN. af2 Administered Medications: 14:33 Drug: NS 0.9% 1000 ml [sodium chloride 0.9 % intravenous solution] Route: IV; Rate: ck1 bolus; Site: right antecubital; 17:11 Follow up: IV Status: Completed infusion ck1 14:33 Drug: Promethazine 25 mg [promethazine 25 mg/mL injection solution (1 mL)] Route: IVP; ck1 Site: right antecubital; 17:11 Drug: NS 0.9% 1000 ml [sodium chloride 0.9 % intravenous solution] Route: IV; Rate: ck1 bolus; Site: right antecubital; 17:15 Not Given (Duplicate Order): NS 0.9% 1000 ml IV at bolus once ck1 18:35 Drug: D50W 50 ml [dextrose 50 % in water (D50W) intravenous syringe (50 mL)] Route: ck1 IVP; Site: right antecubital; Point of Care Testing: Blood Glucose: 18:15 Blood Glucose: 62 mg/dL; ck1 Ranges: Order Results: Lab Order: Acetaminophen Level; SPEC'M 11/07/16 13:57 Test: ACETAMINOPHEN LEVEL; Value: 20.4; Range: 10.0-30.0; Units: UG/ML; Status: F Lab Order: Basic Metabolic Profile; SPEC'M 11/07/16 13:57 Test: GLUCOSE, FASTING; Value: 46; Range: 70-105; Abnormal: Below low normal; Units: MG/DL; Status: F Test: BLOOD UREA NITROGEN; Value: 12; Range: 7-18; Units: MG/DL; Status: F Test: CREATININE FOR GFR; Value: 1.13; Range: 0.55-1.02; Abnormal: Above high normal; Units: MG/DL; Status: F Test: GLOMERULAR FILTRATION RATE; Value: 57.7; Range: >60; Abnormal: Below low normal; Status: F Test: SODIUM LEVEL; Value: 143; Range: 136-145; Units: MEQ/L; Status: F Test: POTASSIUM SERUM; Value: 3.7; Range: 3.5-5.1; Units: MEQ/L; Status: F Test: CHLORIDE LEVEL; Value: 112; Range: 98-107; Abnormal: Above high normal; Units: MEQ/L; Status: F Test: CARBON DIOXIDE LEVEL; Value: 21; Range: 21-32; Units: MEQ/L; Status: F Test: ANION GAP; Value: 10; Range: 8-16; Units: MEQ/L; Status: F Test: CALCIUM LEVEL; Value: 8.6; Range: 8.5-10.1; Units: MG/DL; Status: F Test Note: ; Units are mL/min/1.73 m2 Chronic Kidney Disease Staging per NKF: Stage I & II GFR >=60 Normal to Mildly Decreased Stage III GFR 30-59 Moderately Decreased Stage IV GFR 15-29 Severely Decreased Stage V GFR <15 Very Little GFR Left ESRD GFR <15 on IN FLIGHT TECHNICIAN Lab Order: Complete Blood Count; SPEC'M 11/07/16 13:57 Test: WHITE BLOOD COUNT; Value: 8.9; Range: 4.0-10.0; Units: K/mm3; Status: F Test: RED BLOOD COUNT; Value: 3.67; Range: 4.00-5.40; Abnormal: Below low normal; Units: M/mm3; Status: F Test: HEMOGLOBIN; Value: 11.1; Range: 12.0-16.0; Abnormal: Below low normal; Units: g/dl; Status: F Test: HEMATOCRIT; Value: 34.6; Range: 36.0-47.0; Abnormal: Below low normal; Units: %; Status: F Test: MEAN CORPUSCULAR VOLUME; Value: 94.1; Range: 80.0-96.0; Units: fl; Status: F Test: MEAN CORPUSCULAR HEMOGLOBIN; Value: 30.4; Range: 27.0-33.0; Units: pg; Status: F Test: MEAN CORPUSCULAR HGB CONC; Value: 32.2; Range: 32.0-36.5; Units: g/dl; Status: F Test: RED CELL DISTRIBUTION WIDTH; Value: 14.4; Range: 11.5-14.5; Units: %; Status: F Test: PLATELET COUNT, AUTOMATED; Value: 273; Range: 150-450; Units: k/mm3; Status: F Lab Order: Drug Eval Toxicology ED Only; SPEC'M 11/07/16 14:32 Test: AMPHETAMINES LEVEL URINE; Value: POSITIVE; Range: NEGATIVE; Abnormal: Above high normal; Status: F Test: BARBITURATES URINE; Value: NEGATIVE; Range: NEGATIVE; Status: F Test: BENZODIAZEPINES URINE; Value: POSITIVE; Range: NEGATIVE; Abnormal: Above high normal; Status: F Test: CANNABINOIDS URINE; Value: NEGATIVE; Range: NEGATIVE; Status: F Test: COCAINE METABOLITE URINE; Value: NEGATIVE; Range: NEGATIVE; Status: F Test: METHADONE URINE; Value: NEGATIVE; Range: NEGATIVE; Status: F Test: OPIATES URINE; Value: POSITIVE; Range: NEGATIVE; Abnormal: Above high normal; Status: F Test: TRICYCLIC ANTIDEPRESS URINE; Value: NEGATIVE; Range: NEGATIVE; Status: F Test Note: ; ALL PRESUMPTIVE POSITIVE FINDINGS ARE UNCONFIRMED NORMAL VALUES THRESHOLD IN NG/ML AMPHETAMINES 1000 METHAMPHETAMINES 1000 BARBITURATES 300 BENZODIAZEPINES 300 CANNABINOIDS (THC) 50 COCAINE METABOLITE 300 METHADONE 300 OPIATES 300 PHENCYCLIDINE 25 TRICYCLIC ANTIDEPRESSANTS 1000 RESULTS ARE FOR MEDICAL PURPOSES ONLY. ALL URINE SPECIMENS WILL BE SAVED FOR 3 DAYS. IF CONFIRMATION OF A PRESUMPTIVE POSTIVE SCREEN RESULT IS DESIRED, CALL CHEMISTRY ([phone]) AND REQUEST URINE TO BE SENT TO REFERENCE LAB. FOR A LIST OF CLOSELY RELATED COMPOUNDS PLEASE CALL THE LAB. Lab Order: Ethyl Alcohol (ethanol); SPEC'M 11/07/16 13:57 Test: ETHYL ALCOHOL (ETHANOL); Value: < 0.003; Range: 0.000-0.010; Units: %; Status: F Lab Order: Liver Profile; SPEC'M 11/07/16 13:57 Test: AST/SGOT; Value: 28; Range: 15-37; Units: U/L; Status: F Test: ALT/SGPT; Value: 21; Range: 12-78; Units: U/L; Status: F Test: ALKALINE PHOSPHATASE; Value: 35; Range: 45-117; Abnormal: Below low normal; Units: U/L; Status: F Test: BILIRUBIN,TOTAL; Value: 0.3; Range: 0.2-1.0; Units: MG/DL; Status: F Test: BILIRUBIN,DIRECT; Value: 0.1; Range: 0.0-0.2; Units: MG/DL; Status: F Test: TOTAL PROTEIN; Value: 7.8; Range: 6.4-8.2; Units: GM/DL; Status: F Test: ALBUMIN; Value: 3.8; Range: 3.2-5.2; Units: GM/DL; Status: F Test: ALBUMIN/GLOBULIN RATIO; Value: 0.95; Range: 1.00-1.93; Abnormal: Below low normal; Status: F Lab Order: Salicylate Level; SPEC'M 11/07/16 13:57 Test: SALICYLATE LEVEL; Value: < 1.7; Range: 5.0-30.0; Abnormal: Below low normal; Units: MG/DL; Status: F Lab Order: Thyroid Stimulating Hormone; SPEC'11/07/16 13:57 Test: THYROID STIMULATING HORMONE; Value: 2.180; Range: 0.358-3.740; Units: uIU/ML; Status: F Lab Order: PT/INR; [facility] 11/07/16 14:32 Test: PROTHROMBIN TIME; Value: 14.0; Range: 12.3-14.5; Units: SECONDS; Status: F Test: INR; Value: 1.07; Status: F Test Note: ; THERAPUTIC HUMAN INR VALUES INDICATIONS NORMAL RANGES PROPHYLAXIS/TREATMENT OF: VENOUS THROMBOSIS 2.0-3.0 PULMONARY EMBOLISM 2.0-3.0 PREVENTION OF SYSTEMIC EMBOLISM FROM: TISSUE HEART VALVES 2.0-3.0 ACUTE MYOCARDIAL INFARCTION 2.0-3.0 VALVULAR HEART DISEASE 2.0-3.0 ATRIAL FIBRILLATION 2.0-3.0 MECHANICAL VALVES(HIGH RISK) 2.5-3.5 RECURRENT MYOCARDIAL INFARCTION 2.5-3.5 Lab Order: ACETAMINOPHEN LEVEL; [facility] 11/07/16 18:22 Test: ACETAMINOPHEN LEVEL; Value: 8.1; Range: 10.0-30.0; Abnormal: Below low normal; Units: UG/ML; Status: F Lab Order: Fingerstick Blood Sugar; [facility] 11/07/16 18:14 Test: BEDSIDE GLUCOSE; Value: 62; Range: 70-105; Abnormal: Below low normal; Units: MG/DL; Status: F Lab Order: ACETAMINOPHEN LEVEL; [facility] 11/07/16 21:25 Test: ACETAMINOPHEN LEVEL; Value: 6.3; Range: 10.0-30.0; Abnormal: Below low normal; Units: UG/ML; Status: F Lab Order: Fingerstick Blood Sugar; [facility] 11/07/16 22:22 Test: BEDSIDE GLUCOSE; Value: 99; Range: 70-105; Units: MG/DL; Status: F Outcome: 17:12 No special radiology studies were completed. ck1 22:34 Discharge ordered by Provider. cs11 23:11 Discharge Assessment: Patient awake, alert and oriented x 3. No cognitive and/or cf2 functional deficits noted. Patient verbalized understanding of disposition instructions. Patient awake and alert. patient administered narcotics - no. The following High Risk Discharge criteria are identified: None. Condition: stable Condition: improved. Discharge instructions given to patient, significant other, Instructed on discharge instructions, follow up and referral plans. Detox facilites, drug rehab centers at patient's request. Property :Personal belongings accompany Pt. 23:12 Patient left the ED. cf2 Signatures: Norma Munguia MD MD sd1 Nicola Beasley,RN RN Pamela Mathis,RN RN ck1 Gillian Peter, PSA PSA ml4 Monserrat Monson, RN RN hs1 Kuldeep Limon, DO DO cs11 Heath, Jordain, JUNIOR HIGH MATH TEACHER JUNIOR HIGH MATH TEACHER jlf Liane Eugene, Landcare Officer Unit jl Olga Phillips RN RN af2 Mary Ellen ZamoraRN RN cf2 Yesica Walkerne dm19 Corrections: (The following items were deleted from the chart) 16:04 15:52 Social Work Note: Met pt at bedside regarding opiate addiction. Pt reports being ml4 sober from opiates for the past 2 years, until about 3 months ago. Relapse was triggered by disliking the holidays and some relational problems with daughter who resides in a different state. Additionally, pt reports her best friend 2 wks ago from an OD and pt states, "I just miss her so much." States she initially presented to [facility] for an intake to get back into tx, but was sent to [facility] due to taking 15 tablets of Percocet. Pt states, "I take more than that each day since I suffer from so much pain." She also admits to some Heroin abuse when she is unable to obtain Percocet. She adamantly denies ingesting medication as a suicide attempt and continues to deny SI and HI. Referrals for outpt services was given at directed to follow up with [facility] for further tx. ml4 17:09 15:30 Pulse 101bpm; Monitor; Pulse Ox 53%; ck1 ck1 Chart Complete MTDD
== END 2016-11-07 23:12 | disposition home or self-care (01) ==
LOC: M ED 13:44
DX: T40.2X1A Poisoning by other opioids, accidental (unintentional), initial encounter (principal); R11.0 Nausea; R42 Dizziness and giddiness; Y92.89 Other specified places as the place of occurrence of the external cause; F11.29 Opioid dependence with unspecified opioid-induced disorder; M54.9 Dorsalgia, unspecified; E16.2 Hypoglycemia, unspecified; F90.9 Attention-deficit hyperactivity disorder, unspecified type; G89.29 Other chronic pain; D64.9 Anemia, unspecified; F41.9 Anxiety disorder, unspecified; F32.9 Major depressive disorder, single episode, unspecified; F43.10 Post-traumatic stress disorder, unspecified; G47.00 Insomnia, unspecified; I73.00 Raynaud's syndrome without gangrene; Z87.820 Personal history of traumatic brain injury; F17.210 Nicotine dependence, cigarettes, uncomplicated; Z79.899 Other long term (current) drug therapy; Z88.1 Allergy status to other antibiotic agents; Z88.8 Allergy status to other drugs, medicaments and biological substances; Z91.041 Radiographic dye allergy status; Z98.84 Bariatric surgery status
CPT/HCPCS: 36415; 80048; 80076; 80306; 84443; 85027; 85610; 93041; 96361; 96374; 99284; G0480; J2405

== ENCOUNTER 2016-11-12 11:59 | Emergency (ER) | payer OTHER ==
[~2016-11-12 11:59] MED LIST changes: +OXYC-517 PO; -OXYCO5TA PO
[2016-11-12] MEDS ORDERED: LORazepam 1 MG TAB As Ordered ONE (12:57)
[2016-11-12] MEDS ORDERED: ONDANSETRON 4 MG TAB (S0181) As Ordered ONE (12:57)
--- NOTE | 2016-11-12 13:37 | EDDOCDS ---
Physician Documentation [facility] Name: Lianne Saldana Age: 35 yrs Sex: Female : 1980 Arrival Date: 11/12/2016 Time: 11:59 Bed TR8 Private MD: Unknown, Family Dr Disposition: 11/12/16 13:27 Discharged to Home/Self Care. Impression: Patient's other noncompliance with medication regimen. - Condition is Stable. - Discharge Instructions: Opioid Use Disorder. - Prescriptions for Ativan 1 mg Oral Tablet - take 1 tablet by ORAL route every 8 hours As needed; 6 tablet. Zofran 4 mg Oral Tablet - take 1 tablet by ORAL route 4 times per day As needed; 10 tablet. - Medication Reconciliation, Local Pharmacy Hours form. - Follow up: Private Physician; When: Tomorrow; Reason: Continuance of care. - Problem is an ongoing problem. - Symptoms are unchanged. Historical: - Allergies: Bentyl (Seizures); Bactrim (Hives); NSAIDS (can not take due to gastric bypass)gastric bypas procedure done in 2002; IV Dye (Rash); - Home Meds: 1. Adderall XR 30 mg Oral cp24 1 cap twice a day not taking at this time 2. Cipro 500 mg Oral tab 1 tab every 12 hours "I only took two pills of it for UTI, but I lost the rest." Pt states started medication on 11/04/16. 3. gabapentin 300 mg Oral cap 3 caps 3 times per day 4. topiramate 50 mg oral tab 2 times per day 5. clonidine HCl 0.2 mg Oral tab once daily 6. Latuda 40 mg oral tab 1 tab once daily 7. Valium 10 mg Oral tab states out of valium and adderal , uses them recreationaly and non additional today - PMHx: TBI; Anemia; Anxiety; Depression; Hypoglycemia; insomnia; PTSD; Raynauds; Sciatica; ADHD; - PSHx: Tubal ligation; Gastric Bypass; Hysterectomy; Cholecystectomy; - Social history: Smoking status: Patient uses tobacco products, current every day smoker. Patient uses IV drugs, heroin, No barriers to communication noted, The patient speaks fluent Venezuelan, Speaks appropriately for age, Patient uses street drugs, narcotics. - Family history: Not pertinent. - : The pt / caregiver states he / she is not on anticoagulants. Home medication list is obtained from the patient, [employer] import data. - Exposure Risk Screening:: None identified. 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 8 in. (172.72 cm) (R); Pain 6/10; 13:34 BP 114 / 72; Pulse 80; Resp 16; Temp 98.7(O); Pulse Ox 100% on R/A; ead 12:01 Body Mass Index 37.71 (112.49 kg, 172.72 cm) gr2 MDM: 12:54 LORazepam 1 mg PO once ordered. ke 12:54 Ondansetron 4 mg PO once ordered. ke 13:05 Financial registration complete. lg Administered Medications: 12:59 Drug: LORazepam 1 mg [lorazepam 1 mg tablet (1 tabs)] Route: PO; ead 13:34 Follow up: Response: Confirmed pt not driving.; Anxiety is improved; No Adverse Reactionead 12:59 Drug: Ondansetron 4 mg [ondansetron HCl 4 mg tablet (1 tabs)] Route: PO; ead 13:35 Follow up: Response: Nausea is decreased; No Adverse Reaction ead Signatures: Avinash Francsico, Jorge Chen lg, MILL TENDER WARM UP Faviola Luciano,RN RN ead MTDD
--- NOTE | 2016-11-12 13:37 | EDDOCDS ---
Nurse's Notes [facility] Name: Linane Saldana Age: 35 yrs Sex: Female : 1980 Arrival Date: 11/12/2016 Time: 11:59 Bed TR8 Private MD: Unknown, Family Dr Diagnosis: Patient's other noncompliance with medication regimen Presentation: 11/12 12:04 Presenting complaint: Patient states: pt states she is to have intake appointment with kerrie Durbin tomorrow. Presenting complaint: Patient states: "I'm withdrawling really bad, I haven't used any heroine since last Saturday. I'm trying to get in with [facility]." Pt reports decreasing narcotic use. Pt c/o back pain, incontinence of bowel x 7. reports nausea, decreased appetite. Adult Sepsis Screening: The patient does not have new or worsening altered mentation. Patient's respiratory rate is less than 22. Systolic blood pressure is greater than 100. Patient has a qSOFA score of 0- Negative Sepsis Screen. Suicide/Homicide risk assessment- the patient denies having any suicidal and/or homicidal ideations and does not present with any other emotional, behavioral or mental health complaints. Status: The patient is a dependent. Transition of care: patient was not received from another setting of care. 12:04 Acuity: KRYS Level 3 ead 12:04 Method Of Arrival: Walkin/Carried/Asstd ead Triage Assessment: 12:09 General: Appears in no apparent distress, Behavior is cooperative. Pain: Location: ead abdomen and pelvis. Pain: Pain currently is 8 out of 10 on a pain scale. At worst was 10 out of 10 on a pain scale. HIV screening NA for this visit Offered previously. Neurological: Level of Consciousness is awake, alert, obeys commands, Oriented to person, place, time. GI: Reports lower abdominal pain, nausea. : Reports urinary frequency. Derm: Skin is pink, warm & dry. Musculoskeletal: Reports pain in back. 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 Adderall XR 30 mg Oral cp24 1 cap twice a day not taking at this time 2. Cipro 500 mg Oral tab 1 tab every 12 hours "I only took two pills of it for UTI, but I lost the rest." Pt states started medication on 11/04/16. 3. gabapentin 300 mg Oral cap 3 caps 3 times per day 4. topiramate 50 mg oral tab 2 times per day 5. clonidine HCl 0.2 mg Oral tab once daily 6. Latuda 40 mg oral tab 1 tab once daily 7. Valium 10 mg Oral tab states out of valium and adderal , uses them recreationaly and non additional today - PMHx: TBI; Anemia; Anxiety; Depression; Hypoglycemia; insomnia; PTSD; Raynauds; Sciatica; ADHD; - PSHx: Tubal ligation; Gastric Bypass; Hysterectomy; Cholecystectomy; - Social history: Smoking status: Patient uses tobacco products, current every day smoker. Patient uses IV drugs, heroin, No barriers to communication noted, The patient speaks fluent Chilean, Speaks appropriately for age, Patient uses street drugs, narcotics. - Family history: Not pertinent. - : The pt / caregiver states he / she is not on anticoagulants. Home medication list is obtained from the patient, [employer] import data. - Exposure Risk Screening:: None identified. Screenin:35 Screening information is obtained from the patient. Fall risk: No risks identified. ead Assistance ADL's: requires no assistance with activities of daily living. Abuse/DV Screen: The patient / caregiver reports he/she is: not in a situation that causes fear, pain or injury. Nutritional screening: No deficits noted. Advance Directives: Currently, there is no health care proxy. There is no Power of Irrigation Foreman. home support is adequate. Assessment: 13:00 General: Appears in no apparent distress, Behavior is anxious, cooperative. ead Neurological: Level of Consciousness is awake, alert, obeys commands, Oriented to person, place, time. Respiratory: Airway is patent Respiratory effort is even, unlabored. GI: Reports nausea. Derm: Skin is pink, warm & dry. Vital Signs: 12:01 BP 133 / 84; Pulse 105; Resp 18 S; Temp 98.7(O); Pulse Ox 100% on R/A; Weight 112.49 kg gr2 (R); Height 5 ft. 8 in. (172.72 cm) (R); Pain 6/10; 13:34 BP 114 / 72; Pulse 80; Resp 16; Temp 98.7(O); Pulse Ox 100% on R/A; ead 12:01 Body Mass Index 37.71 (112.49 kg, 172.72 cm) gr2 Vitals: 12:01 Log In Time: November 12, 2016 at 12:01. gr2 ED Course: 12:00 Patient visited by Alfonso Gunter. gr2 12:00 Patient moved to Waiting gr2 12:01 Unknown, Family is Private Physician. gr2 12:02 Patient visited by Alfonso Gunter. gr2 12:02 Patient moved to Pre RCE gr2 12:07 Triage Initiated ead 12:36 Patient moved to Triage 1 ead 12:40 [facility]put [facility] ke 12:40 Patient visited by Jorge Rajput FNP. ke 12:40 Patient visited by Jorge Rajput FNP. ke 13:00 The patient / caregiver is instructed regarding the plan of care and ED course. ead 13:20 Patient visited by Jorge Rajput FNP. ke 13:34 No IV's were initiated during this patient's visit. No procedures done that require ead assistance. 13:35 Patient moved to [place] [id number] Administered Medications: 12:59 Drug: LORazepam 1 mg [lorazepam 1 mg tablet (1 tabs)] Route: PO; ead 13:34 Follow up: Response: Confirmed pt not driving.; Anxiety is improved; No Adverse Reactionead 12:59 Drug: Ondansetron 4 mg [ondansetron HCl 4 mg tablet (1 tabs)] Route: PO; ead 13:35 Follow up: Response: Nausea is decreased; No Adverse Reaction ead Order Results: There are currently no results for this order. Outcome: 13:27 Discharge ordered by Provider. ke 13:35 Discharge Assessment: Patient awake and alert. obeys commands, Oriented to person, ead place and time. patient administered narcotics - no. The following High Risk Discharge criteria are identified: None. Discharged to home via wheelchair, with family. Condition: improved. Discharge instructions given to patient, significant other, Instructed on discharge instructions, follow up and referral plans. medication usage, no driving heavy equipment, no drinking with medication. No special radiology studies were completed. Property sent home with patient. 13:36 Patient left the ED. ead Signatures: Jorge Rajput FNP FNP ke Castle, Jennifer RN RN jc4 Alfonso Gunter gr2 Faviola Langley RN RN ead Corrections: (The following items were deleted from the chart) 12:52 12:04 Presenting complaint: Patient states: "I'm withdrawling really bad, I haven't ead used any heroine since last Saturday. I'm trying to get in with [facility]." Pt reports decreasing narcotic use. Pt c/o back pain, incontinence of bowel x 7. reports nausea, decreased appetite. ead MTDD
--- NOTE | 2016-11-14 14:37 | EDDOCDS ---
Physician Documentation [facility] Name: Lianne Saldana Age: 35 yrs Sex: Female : 1980 Arrival Date: 11/12/2016 Time: 11:59 Bed TR8 Private MD: Unknown, Family Dr Disposition: 11/12/16 13:27 Discharged to Home/Self Care. Impression: Patient's other noncompliance with medication regimen. - Condition is Stable. - Discharge Instructions: Opioid Use Disorder. - Prescriptions for Ativan 1 mg Oral Tablet - take 1 tablet by ORAL route every 8 hours As needed; 6 tablet. Zofran 4 mg Oral Tablet - take 1 tablet by ORAL route 4 times per day As needed; 10 tablet. - Medication Reconciliation, Local Pharmacy Hours form. - Follow up: Private Physician; When: Tomorrow; Reason: Continuance of care. - Problem is an ongoing problem. - Symptoms are unchanged. Historical: - Allergies: Bentyl (Seizures); Bactrim (Hives); NSAIDS (can not take due to gastric bypass)gastric bypas procedure done in 2002; IV Dye (Rash); - Home Meds: 1. Adderall XR 30 mg Oral cp24 1 cap twice a day not taking at this time 2. Cipro 500 mg Oral tab 1 tab every 12 hours "I only took two pills of it for UTI, but I lost the rest." Pt states started medication on 11/04/16. 3. gabapentin 300 mg Oral cap 3 caps 3 times per day 4. topiramate 50 mg oral tab 2 times per day 5. clonidine HCl 0.2 mg Oral tab once daily 6. Latuda 40 mg oral tab 1 tab once daily 7. Valium 10 mg Oral tab states out of valium and adderal , uses them recreationaly and non additional today - PMHx: TBI; Anemia; Anxiety; Depression; Hypoglycemia; insomnia; PTSD; Raynauds; Sciatica; ADHD; - PSHx: Tubal ligation; Gastric Bypass; Hysterectomy; Cholecystectomy; - Social history: Smoking status: Patient uses tobacco products, current every day smoker. Patient uses IV drugs, heroin, No barriers to communication noted, The patient speaks fluent Lithuanian, Speaks appropriately for age, Patient uses street drugs, narcotics. - Family history: Not pertinent. - : The pt / caregiver states he / she is not on anticoagulants. Home medication list is obtained from the patient, [employer] import data. - Exposure Risk Screening:: None identified. 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 8 in. (172.72 cm) (R); Pain 6/10; 13:34 BP 114 / 72; Pulse 80; Resp 16; Temp 98.7(O); Pulse Ox 100% on R/A; ead 12:01 Body Mass Index 37.71 (112.49 kg, 172.72 cm) gr2 MDM: 12:54 LORazepam 1 mg PO once ordered. ke 12:54 Ondansetron 4 mg PO once ordered. ke 13:05 Financial registration complete. 14:53 [facility] Payment Agreement was scanned into [employer] and attached to record. 11/13 02:20 T-Sheet-- Draft Copy was scanned into [employer] and attached to record. hs2 Administered Medications: 11/12 12:59 Drug: LORazepam 1 mg [lorazepam 1 mg tablet (1 tabs)] Route: PO; ead 13:34 Follow up: Response: Confirmed pt not driving.; Anxiety is improved; No Adverse Reactionead 12:59 Drug: Ondansetron 4 mg [ondansetron HCl 4 mg tablet (1 tabs)] Route: PO; ead 13:35 Follow up: Response: Nausea is decreased; No Adverse Reaction ead Signatures: Avinash Francisco, Reg Reg Jorge Rajput, DIRECTOR OF HOME ECONOMICS Faviola Luciano,RN RN ead Frannie Brenner, Reg Reg hs2 The chart was reviewed and I authenticate all verbal orders and agree with the evaluation and treatment provided.Attachments: 14:53 [facility] Payment Agreement 11/13 02:20 T-Sheet-- Draft Copy hs2 Chart Complete MTDD
--- NOTE | 2016-11-14 14:37 | EDDOCDS ---
Physician Documentation [facility] Name: Lianne Saldana Age: 35 yrs Sex: Female : 1980 Arrival Date: 11/12/2016 Time: 11:59 Bed TR8 Private MD: Unknown, Family Dr Disposition: 11/12/16 13:27 Discharged to Home/Self Care. Impression: Patient's other noncompliance with medication regimen. - Condition is Stable. - Discharge Instructions: Opioid Use Disorder. - Prescriptions for Ativan 1 mg Oral Tablet - take 1 tablet by ORAL route every 8 hours As needed; 6 tablet. Zofran 4 mg Oral Tablet - take 1 tablet by ORAL route 4 times per day As needed; 10 tablet. - Medication Reconciliation, Local Pharmacy Hours form. - Follow up: Private Physician; When: Tomorrow; Reason: Continuance of care. - Problem is an ongoing problem. - Symptoms are unchanged. Historical: - Allergies: Bentyl (Seizures); Bactrim (Hives); NSAIDS (can not take due to gastric bypass)gastric bypas procedure done in 2002; IV Dye (Rash); - Home Meds: 1. Adderall XR 30 mg Oral cp24 1 cap twice a day not taking at this time 2. Cipro 500 mg Oral tab 1 tab every 12 hours "I only took two pills of it for UTI, but I lost the rest." Pt states started medication on 11/04/16. 3. gabapentin 300 mg Oral cap 3 caps 3 times per day 4. topiramate 50 mg oral tab 2 times per day 5. clonidine HCl 0.2 mg Oral tab once daily 6. Latuda 40 mg oral tab 1 tab once daily 7. Valium 10 mg Oral tab states out of valium and adderal , uses them recreationaly and non additional today - PMHx: TBI; Anemia; Anxiety; Depression; Hypoglycemia; insomnia; PTSD; Raynauds; Sciatica; ADHD; - PSHx: Tubal ligation; Gastric Bypass; Hysterectomy; Cholecystectomy; - Social history: Smoking status: Patient uses tobacco products, current every day smoker. Patient uses IV drugs, heroin, No barriers to communication noted, The patient speaks fluent [place], Speaks appropriately for age, Patient uses street drugs, narcotics. - Family history: Not pertinent. - : The pt / caregiver states he / she is not on anticoagulants. Home medication list is obtained from the patient, [employer] import data. - Exposure Risk Screening:: None identified. 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 8 in. (172.72 cm) (R); Pain 6/10; 13:34 BP 114 / 72; Pulse 80; Resp 16; Temp 98.7(O); Pulse Ox 100% on R/A; ead 12:01 Body Mass Index 37.71 (112.49 kg, 172.72 cm) gr2 MDM: 12:54 LORazepam 1 mg PO once ordered. ke 12:54 Ondansetron 4 mg PO once ordered. ke 13:05 Financial registration complete. 14:53 [facility] Payment Agreement was scanned into [employer] and attached to record. 11/13 02:20 T-Sheet-- Draft Copy was scanned into [employer] and attached to record. hs2 Administered Medications: 11/12 12:59 Drug: LORazepam 1 mg [lorazepam 1 mg tablet (1 tabs)] Route: PO; ead 13:34 Follow up: Response: Confirmed pt not driving.; Anxiety is improved; No Adverse Reactionead 12:59 Drug: Ondansetron 4 mg [ondansetron HCl 4 mg tablet (1 tabs)] Route: PO; ead 13:35 Follow up: Response: Nausea is decreased; No Adverse Reaction ead Signatures: Avinash Francisco, Reg Reg Jorge Rajput, MAJOR [employer]SEM[employer]Y [employer]EMAN Faviola Luciano,RN RN ead Frannie Brenner, Reg Reg hs2 The chart was reviewed and I authenticate all verbal orders and agree with the evaluation and treatment provided.Attachments: 14:53 [facility] Payment Agreement 11/13 02:20 T-Sheet-- Draft Copy hs2 Chart Complete MTDD
--- NOTE | 2016-11-14 14:38 | EDDOCDS ---
Nurse's Notes [facility] Name: Lianne Saldana Age: 35 yrs Sex: Female : 1980 Arrival Date: 11/12/2016 Time: 11:59 Bed TR8 Private MD: Unknown, Family Dr Diagnosis: Patient's other noncompliance with medication regimen Presentation: 11/12 12:04 Presenting complaint: Patient states: pt states she is to have intake appointment with kerrie Durbin tomorrow. Presenting complaint: Patient states: "I'm withdrawling really bad, I haven't used any heroine since last Saturday. I'm trying to get in with [facility]." Pt reports decreasing narcotic use. Pt c/o back pain, incontinence of bowel x 7. reports nausea, decreased appetite. Adult Sepsis Screening: The patient does not have new or worsening altered mentation. Patient's respiratory rate is less than 22. Systolic blood pressure is greater than 100. Patient has a qSOFA score of 0- Negative Sepsis Screen. Suicide/Homicide risk assessment- the patient denies having any suicidal and/or homicidal ideations and does not present with any other emotional, behavioral or mental health complaints. Status: The patient is a dependent. Transition of care: patient was not received from another setting of care. 12:04 Acuity: KRYS Level 3 ead 12:04 Method Of Arrival: Walkin/Carried/Asstd ead Triage Assessment: 12:09 General: Appears in no apparent distress, Behavior is cooperative. Pain: Location: ead abdomen and pelvis. Pain: Pain currently is 8 out of 10 on a pain scale. At worst was 10 out of 10 on a pain scale. HIV screening NA for this visit Offered previously. Neurological: Level of Consciousness is awake, alert, obeys commands, Oriented to person, place, time. GI: Reports lower abdominal pain, nausea. : Reports urinary frequency. Derm: Skin is pink, warm & dry. Musculoskeletal: Reports pain in back. 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 Adderall XR 30 mg Oral cp24 1 cap twice a day not taking at this time 2. Cipro 500 mg Oral tab 1 tab every 12 hours "I only took two pills of it for UTI, but I lost the rest." Pt states started medication on 11/04/16. 3. gabapentin 300 mg Oral cap 3 caps 3 times per day 4. topiramate 50 mg oral tab 2 times per day 5. clonidine HCl 0.2 mg Oral tab once daily 6. Latuda 40 mg oral tab 1 tab once daily 7. Valium 10 mg Oral tab states out of valium and adderal , uses them recreationaly and non additional today - PMHx: TBI; Anemia; Anxiety; Depression; Hypoglycemia; insomnia; PTSD; Raynauds; Sciatica; ADHD; - PSHx: Tubal ligation; Gastric Bypass; Hysterectomy; Cholecystectomy; - Social history: Smoking status: Patient uses tobacco products, current every day smoker. Patient uses IV drugs, heroin, No barriers to communication noted, The patient speaks fluent Chinese, Speaks appropriately for age, Patient uses street drugs, narcotics. - Family history: Not pertinent. - : The pt / caregiver states he / she is not on anticoagulants. Home medication list is obtained from the patient, [employer] import data. - Exposure Risk Screening:: None identified. Screenin:35 Screening information is obtained from the patient. Fall risk: No risks identified. ead Assistance ADL's: requires no assistance with activities of daily living. Abuse/DV Screen: The patient / caregiver reports he/she is: not in a situation that causes fear, pain or injury. Nutritional screening: No deficits noted. Advance Directives: Currently, there is no health care proxy. There is no Power of Wharfinger Chief. home support is adequate. Assessment: 13:00 General: Appears in no apparent distress, Behavior is anxious, cooperative. ead Neurological: Level of Consciousness is awake, alert, obeys commands, Oriented to person, place, time. Respiratory: Airway is patent Respiratory effort is even, unlabored. GI: Reports nausea. Derm: Skin is pink, warm & dry. Vital Signs: 12:01 BP 133 / 84; Pulse 105; Resp 18 S; Temp 98.7(O); Pulse Ox 100% on R/A; Weight 112.49 kg gr2 (R); Height 5 ft. 8 in. (172.72 cm) (R); Pain 6/10; 13:34 BP 114 / 72; Pulse 80; Resp 16; Temp 98.7(O); Pulse Ox 100% on R/A; ead 12:01 Body Mass Index 37.71 (112.49 kg, 172.72 cm) gr2 Vitals: 12:01 Log In Time: November 12, 2016 at 12:01. gr2 ED Course: 12:00 Patient visited by Alfonso Gunter. gr2 12:00 Patient moved to Waiting gr2 12:01 Unknown, Family is Private Physician. gr2 12:02 Patient visited by Alfonso Gunter. gr2 12:02 Patient moved to Pre RCE gr2 12:07 Triage Initiated ead 12:36 Patient moved to Triage 1 ead 12:40 [facility] ke 12:40 Patient visited by Jorge Rajput FNP. ke 12:40 Patient visited by Jorge Rajput FNP. ke 13:00 The patient / caregiver is instructed regarding the plan of care and ED course. ead 13:20 Patient visited by Jorge Rajput FNP. ke 13:34 No IV's were initiated during this patient's visit. No procedures done that require ead assistance. 13:35 Patient moved to [place] [id number] 14:53 [facility] Payment Agreement was scanned into [employer] and attached to record. 11/13 02:20 T-Sheet-- Draft Copy was scanned into [employer] and attached to record. hs2 Administered Medications: 11/12 12:59 Drug: LORazepam 1 mg [lorazepam 1 mg tablet (1 tabs)] Route: PO; ead 13:34 Follow up: Response: Confirmed pt not driving.; Anxiety is improved; No Adverse Reactionead 12:59 Drug: Ondansetron 4 mg [ondansetron HCl 4 mg tablet (1 tabs)] Route: PO; ead 13:35 Follow up: Response: Nausea is decreased; No Adverse Reaction ead Order Results: There are currently no results for this order. Outcome: 13:27 Discharge ordered by Provider. ke 13:35 Discharge Assessment: Patient awake and alert. obeys commands, Oriented to person, ead place and time. patient administered narcotics - no. The following High Risk Discharge criteria are identified: None. Discharged to home via wheelchair, with family. Condition: improved. Discharge instructions given to patient, significant other, Instructed on discharge instructions, follow up and referral plans. medication usage, no driving heavy equipment, no drinking with medication. No special radiology studies were completed. Property sent home with patient. 13:36 Patient left the ED. ead Signatures: Avinash Francisco, Reg Reg lg Jorge Rajput, Cynthia Shaw RN RN [id number] Alfonso Gunter gr2 Faviola Langley RN RN ead Frannie Brenner, Reg Reg hs2 Corrections: (The following items were deleted from the chart) 12:52 12:04 Presenting complaint: Patient states: "I'm withdrawling really bad, I haven't ead used any heroine since last Saturday. I'm trying to get in with [facility]." Pt reports decreasing narcotic use. Pt c/o back pain, incontinence of bowel x 7. reports nausea, decreased appetite. ead Chart Complete MTDD
== END 2016-11-12 13:36 | disposition home or self-care (01) ==
LOC: M ED 11:59
DX: F11.23 Opioid dependence with withdrawal (principal); D64.9 Anemia, unspecified; F41.9 Anxiety disorder, unspecified; F32.9 Major depressive disorder, single episode, unspecified; E16.2 Hypoglycemia, unspecified; G47.00 Insomnia, unspecified; F43.10 Post-traumatic stress disorder, unspecified; I73.00 Raynaud's syndrome without gangrene; M54.30 Sciatica, unspecified side; F90.9 Attention-deficit hyperactivity disorder, unspecified type; F17.210 Nicotine dependence, cigarettes, uncomplicated; Z79.899 Other long term (current) drug therapy; Z88.8 Allergy status to other drugs, medicaments and biological substances; Z88.2 Allergy status to sulfonamides; Z88.6 Allergy status to analgesic agent; Z91.041 Radiographic dye allergy status

== ENCOUNTER 2016-11-23 23:14 | Emergency (ER) | payer OTHER ==
[2016-11-24] MEDS ORDERED: KETOROLAC 30 MG/ML VIAL (J1885) As Ordered ONE (00:19)
[2016-11-24] MEDS ORDERED: diazePAM 5 MG TAB As Ordered ONE (00:19)
[2016-11-24] MEDS ORDERED: traMADol 50 MG TAB As Ordered ONE (02:48)
[2016-11-24 03:20] LABS: BASO % 0.2 % (0.0-1.0); EOS # 0.3 K/mm3 (0.0-0.50); EOS % 3.5 % (0.0-3.0); LARGE UNSTAINED CELL # 0.1 K/mm3 (0.0-0.4); LARGE UNSTAINED CELL % 1.3 % (0.0-4.0); LYMPH # 3.3 K/mm3 (1.5-4.5); LYMPH % 36.3 % (24.0-44.0); MEAN CORPUSCULAR HEMOGLOBIN 30.2 pg (27.0-33.0); MEAN CORPUSCULAR HGB CONC 31.6 g/dl (32.0-36.5); MEAN CORPUSCULAR VOLUME 95.3 fl (80.0-96.0); MONO # 0.4 K/mm3 (0.0-0.8); NEUTROPHILS % 54.7 % (36.0-66.0); PLATELET COUNT, AUTOMATED 272 k/mm3 (150-450); RED CELL DISTRIBUTION WIDTH 14.1 % (11.5-14.5); WHITE BLOOD COUNT 9.1 K/mm3 (4.0-10.0)
[2016-11-24 03:29] LABS: AMPHETAMINES LEVEL URINE NEGATIVE (NEGATIVE); BENZODIAZEPINES URINE POSITIVE (NEGATIVE); COCAINE METABOLITE URINE NEGATIVE (NEGATIVE); CONTROL LINE INT CTR LINE PRESENT; METHADONE URINE NEGATIVE (NEGATIVE); OPIATES URINE NEGATIVE (NEGATIVE); TRICYCLIC ANTIDEPRESS URINE NEGATIVE (NEGATIVE)
[2016-11-24 03:40] LABS: ALBUMIN 3.5 GM/DL (3.2-5.2); ALBUMIN/GLOBULIN RATIO 1.17 (1.00-1.93); ALKALINE PHOSPHATASE 29 U/L (45-117); ALT/SGPT 15 U/L (12-78); ANION GAP 8 MEQ/L (8-16); AST/SGOT 11 U/L (15-37); BILIRUBIN,DIRECT < 0.1 MG/DL (0.0-0.2); BILIRUBIN,TOTAL 0.3 MG/DL (0.2-1.0); BLOOD UREA NITROGEN 19 MG/DL (7-18); CALCIUM LEVEL 8.1 MG/DL (8.5-10.1); CARBON DIOXIDE LEVEL 26 MEQ/L (21-32); CHLORIDE LEVEL 109 MEQ/L (98-107); CREATININE FOR GFR 1.11 MG/DL (0.55-1.02); GLOMERULAR FILTRATION RATE 58.9 (>60); GLUCOSE, FASTING 77 MG/DL (70-105); POTASSIUM SERUM 4.1 MEQ/L (3.5-5.1); SODIUM LEVEL 143 MEQ/L (136-145); TOTAL PROTEIN 6.5 GM/DL (6.4-8.2)
[2016-11-24] MEDS ORDERED: PHENAZOPYRIDINE 100 MG TAB As Ordered ONE (05:20)
[2016-11-24] MEDS ORDERED: CIPROFLOXACIN 500 MG TAB As Ordered ONE (05:21)
--- NOTE | 2016-11-24 05:41 | EDDOCDS ---
Nurse's Notes [facility] Name: Lianne Saldana Age: 35 yrs Sex: Female : 1980 Arrival Date: 11/23/2016 Time: 23:14 Bed 8 Private MD: Diagnosis: Urinary tract infection, site not specified;Other epilepsy and recurrent seizures-evaluation of/for Presentation: 11/23 23:18 Presenting complaint: EMS states: Called EMS for back pain. While enroute pt went in [facility] and out of consciousness, pt states that she thinks this is related to her anxiety, has been incontinent x2 today. Acute neurological deficits are not present. Mechanism of Injury: No Mechanism of Injury. Adult Sepsis Screening: The patient does not have new or worsening altered mentation. Patient's respiratory rate is less than 22. Systolic blood pressure is greater than 100. Patient has a qSOFA score of 0- Negative Sepsis Screen. Suicide/Homicide risk assessment- the patient denies having any suicidal and/or homicidal ideations and does not present with any other emotional, behavioral or mental health complaints. 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 Transition of care: patient was not received from another setting of care. 23:18 Acuity: KRYS Level 3 [facility] 23:18 Method Of Arrival: Ambulance [facility] Triage Assessment: 23:25 HIV screening NA for this visit Offered previously. The patient is triaged at the [facility] bedside. See Assessment in Nurses Notes section of ED record. Historical: - Allergies: Bactrim (Hives); Bentyl (Seizures); IV Dye (Rash); NSAIDS (can not take due to gastric bypass)gastric bypas procedure done in 2002; - Home Meds: 1. gabapentin 300 mg Oral cap 3 caps 3 times per day 2. Latuda 40 mg oral tab 1 tab once daily 3. topiramate 50 mg oral tab 2 times per day 4. Valium 5 mg Oral tab 1 tab 3 times per day 5. Tylenol 325 mg Oral tab 2 tabs every 4-6 hours 6. Motrin 800 mg Oral tab as needed 7. Benadryl Oral as needed - PMHx: ADHD; Anemia; Anxiety; Depression; Hypoglycemia; insomnia; PTSD; Raynauds; Sciatica; TBI; - PSHx: Gastric Bypass; Cholecystectomy; Exploratory lap; pilonidal cyst removal; Hysterectomy; - Social history: Smoking status: Patient uses tobacco products, current some day smoker. No barriers to communication noted, The patient speaks fluent Pakistani. - Family history: Not pertinent. - : The pt / caregiver states he / she is not on anticoagulants. Home medication list is obtained from the patient. - Exposure Risk Screening:: None identified. Screenin:26 Screening information is obtained from the patient. Fall risk: No risks identified. mcp Assistance ADL's: requires no assistance with activities of daily living. Abuse/DV Screen: The patient / caregiver reports he/she is: not in a situation that causes fear, pain or injury. Nutritional screening: No deficits noted. Advance Directives: There is no active DNR order. home support is adequate. Assessment: 23:25 General: Appears uncomfortable, Behavior is cooperative. Pain: Location: back, right mcp leg and left leg Pain currently is 7 out of 10 on a pain scale. Neurological: No deficits noted. Respiratory: Airway is patent Respiratory effort is even, unlabored. Derm: Skin is pink, warm & dry. Musculoskeletal: Circulation, motion, and sensation intact. 11/24 00:30 General: Appears uncomfortable, Behavior is cooperative. Neurological: No deficits mcp noted. Respiratory: Airway is patent Respiratory effort is even, unlabored. Derm: Skin is pink, warm & dry. 01:13 Adult Sepsis Screening: The patient does not have new or worsening altered mentation. cz Patient's respiratory rate is less than 22. Systolic blood pressure is greater than 100. Patient has a qSOFA score of 0- Negative Sepsis Screen. 01:33 Reassessment: Patient appears in no apparent distress at this time. Patient states cz symptoms have not improved. pt rates her back pain a 10/10 worse on right side provider notified. 02:32 Reassessment: Patient appears in no apparent distress at this time. pt resting quietly cz with eyes closed when entering room to take vital signs,pt woke up and stated she was still having pain, pt's vital signs stable provider made aware. 03:25 Adult Sepsis Screening: The patient does not have new or worsening altered mentation. cz Patient's respiratory rate is less than 22. Systolic blood pressure is greater than 100. Patient has a qSOFA score of 0- Negative Sepsis Screen. 03:58 Reassessment: machine sign writer called to room pt expressed concern on treatment by staff and cz E.D.and wanted to sign out AMA this machine sign writer spoke with pt at length and pt verbalized understanding of treatment . pt decided to stay for results of labs and scan that was ordered. 05:04 Reassessment: Patient states symptoms have not improved. pt up to bedside commode on cz own to void returned to bed. pt states no change in right lower back pain after p.o. medication pt awaiting review of labs.radiology results by Elia Shankar,. 05:05 Adult Sepsis Screening: The patient does not have new or worsening altered mentation. cz Patient's respiratory rate is less than 22. Systolic blood pressure is greater than 100. Patient has a qSOFA score of 0- Negative Sepsis Screen. Vital Signs: 11/23 23:22 BP 153 / 75 LA Sitting (auto/reg); Pulse 87 MON; Resp 20 S; Temp 97.4(TE); Pulse Ox cln 100% on R/A; Weight 111.13 kg (R); Height 5 ft. 8 in. (172.72 cm) (R); Pain 10/10; 11/24 01:33 BP 115 / 63; Pulse 74; Resp 16; Pulse Ox 96% on R/A; Pain 10/10; cz 05:01 BP 134 / 74; Pulse 102; Resp 16; Pulse Ox 100% on R/A; cz 05:03 Pain 10/10; cz 11/23 23:22 Body Mass Index 37.25 (111.13 kg, 172.72 cm) cln ED Course: 11/23 23:16 Patient visited by Mika Nelson, Drying Can Worker. ml3 23:16 Patient moved to Waiting ml3 23:17 Patient moved to 8 ml3 23:20 Triage Initiated [facility] 23:23 Patient visited by Nancy Pierre PCA. cln 23:23 Pt greeted and oriented to ED. Patient advised of names of staff involved in care, cln location of call [place], wait times and NPO status. Patient has correct armband on for positive identification. Placed in gown. Bed in low position. Call light in reach. Side rails up X 1. 23:25 Eleni Brennan FNP is PHCP. le 23:26 Patient visited by Reshma Horton RN. [facility] 23:26 The patient / caregiver is instructed regarding the plan of care and ED course. mcp 23:31 Patient visited by Eleni Brennan FNP. le 23:31 Patient visited by Eleni Brennan FNP. le 11/24 00:09 Bladder Scan completed Results: 0. mcp 00:41 [facility] [place] Agreement was scanned into [employer] and attached to record. slh 01:00 Patient visited by Bobby Thomas PCA. kb5 01:09 Patient visited by Reshma Horton RN. mcp 01:33 Patient visited by Delfino Coronel RN. cz 02:17 Patient visited by Delfino Coronel RN. cz 02:32 Patient visited by Delfino Coronel RN. cz 03:04 Patient visited by Delfino Coronel RN. cz 03:38 Patient visited by Delfino Coronel RN. cz 04:07 CT Head Without Contrast Returned. EDMS 04:11 Patient visited by Delfino Coronel RN. cz 04:50 Patient visited by Delfino Coronel RN. cz 05:09 Carmina Hines is Referral Physician. cs11 05:10 Kuldeep Limon DO is Attending Physician. cs11 05:28 No IV's were initiated during this patient's visit. No procedures done that require cz assistance. Administered Medications: 00:24 Drug: ketorolac 60 mg [ketorolac 30 mg/mL (1 mL) injection solution (2 mL)] Route: IM; [facility] Site: right gluteus; 00:24 Drug: Diazepam 5 mg [diazepam 5 mg tablet (1 tabs)] Route: PO; [facility] 02:58 Drug: traMADol 25 mg [tramadol 50 mg tablet (0.5 tabs)] Route: PO; cz 05:03 Follow up: Pain 08/13 Adult; Response: No significant change. cz 05:27 Drug: Phenazopyridine 200 mg [phenazopyridine 100 mg tablet (2 tabs)] Route: PO; cz 05:27 Drug: Ciprofloxacin 500 mg [ciprofloxacin 500 mg tablet (1 tabs)] Route: PO; cz Order Results: Lab Order: Urine Toxicology; SPEC'M 11/24/16 02:56 Test: AMPHETAMINES LEVEL URINE; Value: NEGATIVE; Range: NEGATIVE; Status: F Test: BARBITURATES URINE; Value: NEGATIVE; Range: NEGATIVE; Status: F Test: BENZODIAZEPINES URINE; Value: POSITIVE; Range: NEGATIVE; Abnormal: Above high normal; Status: F Test: CANNABINOIDS URINE; Value: NEGATIVE; Range: NEGATIVE; Status: F Test: COCAINE METABOLITE URINE; Value: NEGATIVE; Range: NEGATIVE; Status: F Test: METHADONE URINE; Value: NEGATIVE; Range: NEGATIVE; Status: F Test: OPIATES URINE; Value: NEGATIVE; Range: NEGATIVE; Status: F Test: TRICYCLIC ANTIDEPRESS URINE; Value: NEGATIVE; Range: NEGATIVE; Status: F Test Note: ; ALL PRESUMPTIVE POSITIVE FINDINGS ARE UNCONFIRMED NORMAL VALUES THRESHOLD IN NG/ML AMPHETAMINES 1000 METHAMPHETAMINES 1000 BARBITURATES 300 BENZODIAZEPINES 300 CANNABINOIDS (THC) 50 COCAINE METABOLITE 300 METHADONE 300 OPIATES 300 PHENCYCLIDINE 25 TRICYCLIC ANTIDEPRESSANTS 1000 RESULTS ARE FOR MEDICAL PURPOSES ONLY. ALL URINE SPECIMENS WILL BE SAVED FOR 3 DAYS. IF CONFIRMATION OF A PRESUMPTIVE POSTIVE SCREEN RESULT IS DESIRED, CALL CHEMISTRY ([phone]) AND REQUEST URINE TO BE SENT TO REFERENCE LAB. FOR A LIST OF CLOSELY RELATED COMPOUNDS PLEASE CALL THE LAB. Lab Order: Urinalysis; SPEC'M 11/24/16 02:56 Test: APPEARANCE, URINE; Value: CLEAR; Range: CLEAR; Status: F Test: COLOR, URINE; Value: STRAW; Range: YELLOW; Status: F Test: PH,URINE; Value: 5.0; Range: 5.0-9.0; Units: UNITS; Status: F Test: SPECIFIC GRAVITY URINE AUTO; Value: 1.006; Range: 1.002-1.035; Status: F Test: PROTEIN, URINE AUTO; Value: NEGATIVE; Range: NEGATIVE; Units: mg/dL; Status: F Test: GLUCOSE, URINE (UA) AUTO; Value: NEGATIVE; Range: NEGATIVE; Units: mg/dL; Status: F Test: KETONE, URINE AUTO; Value: NEGATIVE; Range: NEGATIVE; Units: mg/dL; Status: F Test: UROBILINOGEN, URINE AUTO; Value: 0.2; Range: 0.0-2.0; Units: mg/dL; Status: F Test: BILIRUBIN, URINE AUTO; Value: NEGATIVE; Range: NEGATIVE; Status: F Test: NITRITE, URINE AUTO; Value: NEGATIVE; Range: NEGATIVE; Status: F Test: LEUKOCYTE ESTERASE, URINE AUTO; Value: NEGATIVE; Range: NEGATIVE; Status: F Test: BLOOD, URINE BLOOD; Value: 1+; Range: NEGATIVE; Abnormal: Above high normal; Status: F Test: WBC, URINE AUTO; Value: 4; Range: 0-3; Abnormal: Above high normal; Units: /HPF; Status: F Test: RBC, URINE AUTO; Value: 0; Range: 0-3; Units: /HPF; Status: F Test: BACTERIA, URINE AUTO; Value: 1+; Range: NEGATIVE; Abnormal: Above high normal; Status: F Test: SQUAMOUS EPITHELIAL CELL UR AU; Value: 2; Range: 0-6; Units: /HPF; Status: F Test: HYALINE CAST, URINE AUTO; Value: 0; Range: 0-1; Units: /LPF; Status: F Lab Order: CBC with Diff; SPEC'M 11/24/16 02:56 Test: WHITE BLOOD COUNT; Value: 9.1; Range: 4.0-10.0; Units: K/mm3; Status: F Test: RED BLOOD COUNT; Value: 3.91; Range: 4.00-5.40; Abnormal: Below low normal; Units: M/mm3; Status: F Test: HEMOGLOBIN; Value: 11.8; Range: 12.0-16.0; Abnormal: Below low normal; Units: g/dl; Status: F Test: HEMATOCRIT; Value: 37.3; Range: 36.0-47.0; Units: %; Status: F Test: MEAN CORPUSCULAR VOLUME; Value: 95.3; Range: 80.0-96.0; Units: fl; Status: F Test: MEAN CORPUSCULAR HEMOGLOBIN; Value: 30.2; Range: 27.0-33.0; Units: pg; Status: F Test: MEAN CORPUSCULAR HGB CONC; Value: 31.6; Range: 32.0-36.5; Abnormal: Below low normal; Units: g/dl; Status: F Test: RED CELL DISTRIBUTION WIDTH; Value: 14.1; Range: 11.5-14.5; Units: %; Status: F Test: PLATELET COUNT, AUTOMATED; Value: 272; Range: 150-450; Units: k/mm3; Status: F Test: NEUTROPHILS %; Value: 54.7; Range: 36.0-66.0; Units: %; Status: F Test: LYMPH %; Value: 36.3; Range: 24.0-44.0; Units: %; Status: F Test: MONO %; Value: 4.0; Range: 0.0-5.0; Units: %; Status: F Test: EOS %; Value: 3.5; Range: 0.0-3.0; Abnormal: Above high normal; Units: %; Status: F Test: BASO %; Value: 0.2; Range: 0.0-1.0; Units: %; Status: F Test: LARGE UNSTAINED CELL %; Value: 1.3; Range: 0.0-4.0; Units: %; Status: F Test: NEUTROPHILS #; Value: 5.0; Range: 1.8-7.7; Units: K/mm3; Status: F Test: LYMPH #; Value: 3.3; Range: 1.5-4.5; Units: K/mm3; Status: F Test: MONO #; Value: 0.4; Range: 0.0-0.8; Units: K/mm3; Status: F Test: EOS #; Value: 0.3; Range: 0.0-0.50; Units: K/mm3; Status: F Test: BASO #; Value: 0.0; Range: 0.0-0.2; Units: K/mm3; Status: F Test: LARGE UNSTAINED CELL #; Value: 0.1; Range: 0.0-0.4; Units: K/mm3; Status: F Lab Order: [facility]; SPEC'M 11/24/16 02:56 Test: GLUCOSE, FASTING; Value: 77; Range: 70-105; Units: MG/DL; Status: F Test: BLOOD UREA NITROGEN; Value: 19; Range: 7-18; Abnormal: Above high normal; Units: MG/DL; Status: F Test: CREATININE FOR GFR; Value: 1.11; Range: 0.55-1.02; Abnormal: Above high normal; Units: MG/DL; Status: F Test: GLOMERULAR FILTRATION RATE; Value: 58.9; Range: >60; Abnormal: Below low normal; Status: F Test: SODIUM LEVEL; Value: 143; Range: 136-145; Units: MEQ/L; Status: F Test: POTASSIUM SERUM; Value: 4.1; Range: 3.5-5.1; Units: MEQ/L; Status: F Test: CHLORIDE LEVEL; Value: 109; Range: 98-107; Abnormal: Above high normal; Units: MEQ/L; Status: F Test: CARBON DIOXIDE LEVEL; Value: 26; Range: 21-32; Units: MEQ/L; Status: F Test: ANION GAP; Value: 8; Range: 8-16; Units: MEQ/L; Status: F Test: CALCIUM LEVEL; Value: 8.1; Range: 8.5-10.1; Abnormal: Below low normal; Units: MG/DL; Status: F Test Note: ; Units are mL/min/1.73 m2 Chronic Kidney Disease Staging per NKF: Stage I & II GFR >=60 Normal to Mildly Decreased Stage III GFR 30-59 Moderately Decreased Stage IV GFR 15-29 Severely Decreased Stage V GFR <15 Very Little GFR Left ESRD GFR <15 on SINGE WINDER Lab Order: Liver Profile; SPEC'M 11/24/16 02:56 Test: AST/SGOT; Value: 11; Range: 15-37; Abnormal: Below low normal; Units: U/L; Status: F Test: ALT/SGPT; Value: 15; Range: 12-78; Units: U/L; Status: F Test: ALKALINE PHOSPHATASE; Value: 29; Range: 45-117; Abnormal: Below low normal; Units: U/L; Status: F Test: BILIRUBIN,TOTAL; Value: 0.3; Range: 0.2-1.0; Units: MG/DL; Status: F Test: BILIRUBIN,DIRECT; Value: < 0.1; Range: 0.0-0.2; Units: MG/DL; Status: F Test: TOTAL PROTEIN; Value: 6.5; Range: 6.4-8.2; Units: GM/DL; Status: F Test: ALBUMIN; Value: 3.5; Range: 3.2-5.2; Units: GM/DL; Status: F Test: ALBUMIN/GLOBULIN RATIO; Value: 1.17; Range: 1.00-1.93; Status: F Lab Order: Alcohol; SPEC'11/24/16 02:56 Test: ETHYL ALCOHOL (ETHANOL); Value: < 0.003; Range: 0.000-0.010; Units: %; Status: F Radiology Order: CT Head Without Contrast Test: CT Head Without Contrast REASON FOR EXAMINATION: seizure; ; CLINICAL HISTORY: Seizure.; TECHNIQUE: Multiple axial brain CT scan sections were obtained from base to vertex without contrast a; dministration.; COMMENTS:; The study shows normal configuration of sella turcica. There are no intra or extra-axial collections.; There is no mass effect or midline shift. There is no evidence of hematoma formation. No hydrocephal; us is present. No abnormal calcifications are noted.; No significant abnormalities are seen either in the posterior fossa or supratentorial compartment.; The sinuses and mastoid air cells are patent.; IMPRESSION:; No evidence of acute intracranial pathology.; Thank you for your kind referral of this patient.; ; Outcome: 05:10 Discharge ordered by Provider. cs11 05:27 Discharge Assessment: Patient awake, alert and oriented x 3. No cognitive and/or cz functional deficits noted. Patient verbalized understanding of disposition instructions. patient administered narcotics - no. The following High Risk Discharge criteria are identified: None. Discharged to home via wheelchair, with family. Condition: unchanged. Discharge instructions given to patient, Instructed on discharge instructions, follow up and referral plans. medication usage, Demonstrated understanding of instructions, medications, Pt was receptive of discharge instructions/ teaching. Prescriptions given X 1. CT Study completed. Property :Personal belongings accompany Pt. 05:40 Patient left the ED. cz Signatures: Dispatcher [employer] EDSC Reshma Horton RN RN mcp Zecher, Calvin, RN RN cz Lopresti, Mary-Elizabeth, Drying Can Worker Unit ml3 Bobby Thomas, RETAIL PARTS PROFESSIONAL RETAIL PARTS PROFESSIONAL kb5 Eleni Brennan FNP FNP le Schiff, Craig, DO cs11 Bernadette Justice Crystal, RETAIL PARTS PROFESSIONAL RETAIL PARTS PROFESSIONAL cln MTDD
--- NOTE | 2016-11-24 05:41 | EDDOCDS ---
Physician Documentation [facility] Name: Lianne Saldana Age: 35 yrs Sex: Female : 1980 Arrival Date: 11/23/2016 Time: 23:14 Bed 8 Private MD: Disposition: 11/24/16 05:10 Discharged to Home/Self Care. Impression: Urinary tract infection, site not specified, Other epilepsy and recurrent seizures - evaluation of/for. - Condition is Stable. - Prescriptions for Cipro 500 mg Oral Tablet - take 1 tablet by ORAL route every 12 hours; 10 tablet. - Medication Reconciliation, Local Pharmacy Hours form. - Follow up: Private Physician; When: Call to arrange an appointment; Reason: Recheck today's complaints. Follow up: Carmina Hines; When: Call to arrange an appointment; Reason: To establish care. - Problem is new. - Symptoms have improved. Historical: - Allergies: Bactrim (Hives); Bentyl (Seizures); IV Dye (Rash); NSAIDS (can not take due to gastric bypass)gastric bypas procedure done in 2002; - Home Meds: 1. gabapentin 300 mg Oral cap 3 caps 3 times per day 2. Latuda 40 mg oral tab 1 tab once daily 3. topiramate 50 mg oral tab 2 times per day 4. Valium 5 mg Oral tab 1 tab 3 times per day 5. Tylenol 325 mg Oral tab 2 tabs every 4-6 hours 6. Motrin 800 mg Oral tab as needed 7. Benadryl Oral as needed - PMHx: ADHD; Anemia; Anxiety; Depression; Hypoglycemia; insomnia; PTSD; Raynauds; Sciatica; TBI; - PSHx: Gastric Bypass; Cholecystectomy; Exploratory lap; pilonidal cyst removal; Hysterectomy; - Social history: Smoking status: Patient uses tobacco products, current some day smoker. No barriers to communication noted, The patient speaks fluent Georgian. - Family history: Not pertinent. - : The pt / caregiver states he / she is not on anticoagulants. Home medication list is obtained from the patient. - Exposure Risk Screening:: None identified. Vital Signs: 11/23 23:22 BP 153 / 75 LA Sitting (auto/reg); Pulse 87 MON; Resp 20 S; Temp 97.4(TE); Pulse Ox cln 100% on R/A; Weight 111.13 kg / 245 lbs (R); Height 5 ft. 8 in. (172.72 cm) (R); Pain 08/13; 11/24 01:33 BP 115 / 63; Pulse 74; Resp 16; Pulse Ox 96% on R/A; Pain 10; cz 05:01 BP 134 / 74; Pulse 102; Resp 16; Pulse Ox 100% on R/A; cz 05:03 Pain 08/13; cz 11/23 23:22 Body Mass Index 37.25 (111.13 kg, 172.72 cm) cln MDM: 11/23 23:48 Bladder Scan please ordered. le 11/24 00:01 Financial registration complete. [facility] 00:09 ketorolac 60 mg IM once ordered. le 00:09 Diazepam 5 mg PO once ordered. 00:41 [facility] Payment Agreement was scanned into [employer] and attached to record. [facility] 02:44 traMADol 25 mg PO once ordered. cs11 02:45 Urine Toxicology Ordered. EDMS 02:45 Urinalysis Ordered. EDMS 02:45 CBC with Diff Ordered. EDMS 02:45 MED Profile Ordered. EDMS 02:45 Liver Profile Ordered. EDMS 02:45 Alcohol Ordered. EDMS 02:45 Urine Culture Ordered. EDMS 02:46 CT Head Without Contrast Ordered. EDMS 05:06 Urine Toxicology Reviewed. cs11 05:06 Urinalysis Reviewed. cs11 05:06 CBC with Diff Reviewed. cs11 05:06 MED Profile Reviewed. cs11 05:06 Liver Profile Reviewed. cs11 05:06 Alcohol Reviewed. cs11 05:06 CT Head Without Contrast Reviewed. cs11 05:13 Phenazopyridine 200 mg PO once ordered. cs11 05:13 Ciprofloxacin 500 mg PO once ordered. cs11 Administered Medications: 00:24 Drug: ketorolac 60 mg [ketorolac 30 mg/mL (1 mL) injection solution (2 mL)] Route: IM; [facility] Site: right gluteus; 00:24 Drug: Diazepam 5 mg [diazepam 5 mg tablet (1 tabs)] Route: PO; [facility] 02:58 Drug: traMADol 25 mg [tramadol 50 mg tablet (0.5 tabs)] Route: PO; cz 05:03 Follow up: Pain 10 Adult; Response: No significant change. cz 05:27 Drug: Phenazopyridine 200 mg [phenazopyridine 100 mg tablet (2 tabs)] Route: PO; cz 05:27 Drug: Ciprofloxacin 500 mg [ciprofloxacin 500 mg tablet (1 tabs)] Route: PO; cz Signatures: Dispatcher [employer] Reshma Silver, RN RN Delfino Stone RN RN cz Westcott, Lisa, Kuldeep Go, DO [facility] Bernadette Justice [facility] The chart was reviewed and I authenticate all verbal orders and agree with the evaluation and treatment provided.Attachments: 00:41 [facility] Payment Agreement [facility] MTDD
--- NOTE | 2016-11-26 06:41 | EDDOCDS ---
Physician Documentation [facility] Name: Lianne Saldana Age: 35 yrs Sex: Female : 1980 Arrival Date: 11/23/2016 Time: 23:14 Bed 8 Private MD: Disposition: 11/24/16 05:10 Discharged to Home/Self Care. Impression: Urinary tract infection, site not specified, Other epilepsy and recurrent seizures - evaluation of/for. - Condition is Stable. - Prescriptions for Cipro 500 mg Oral Tablet - take 1 tablet by ORAL route every 12 hours; 10 tablet. - Medication Reconciliation, Local Pharmacy Hours form. - Follow up: Private Physician; When: Call to arrange an appointment; Reason: Recheck today's complaints. Follow up: Carmina Hines; When: Call to arrange an appointment; Reason: To establish care. - Problem is new. - Symptoms have improved. Historical: - Allergies: Bactrim (Hives); Bentyl (Seizures); IV Dye (Rash); NSAIDS (can not take due to gastric bypass)gastric bypas procedure done in 2002; - Home Meds: 1. gabapentin 300 mg Oral cap 3 caps 3 times per day 2. Latuda 40 mg oral tab 1 tab once daily 3. topiramate 50 mg oral tab 2 times per day 4. Valium 5 mg Oral tab 1 tab 3 times per day 5. Tylenol 325 mg Oral tab 2 tabs every 4-6 hours 6. Motrin 800 mg Oral tab as needed 7. Benadryl Oral as needed - PMHx: ADHD; Anemia; Anxiety; Depression; Hypoglycemia; insomnia; PTSD; Raynauds; Sciatica; TBI; - PSHx: Gastric Bypass; Cholecystectomy; Exploratory lap; pilonidal cyst removal; Hysterectomy; - Social history: Smoking status: Patient uses tobacco products, current some day smoker. No barriers to communication noted, The patient speaks fluent Maori. - Family history: Not pertinent. - : The pt / caregiver states he / she is not on anticoagulants. Home medication list is obtained from the patient. - Exposure Risk Screening:: None identified. Vital Signs: 11/23 23:22 BP 153 / 75 LA Sitting (auto/reg); Pulse 87 MON; Resp 20 S; Temp 97.4(TE); Pulse Ox cln 100% on R/A; Weight 111.13 kg / 245 lbs (R); Height 5 ft. 8 in. (172.72 cm) (R); Pain 08/13; 11/24 01:33 BP 115 / 63; Pulse 74; Resp 16; Pulse Ox 96% on R/A; Pain 10/10; cz 05:01 BP 134 / 74; Pulse 102; Resp 16; Pulse Ox 100% on R/A; cz 05:03 Pain 08/13; cz 11/23 23:22 Body Mass Index 37.25 (111.13 kg, 172.72 cm) cln MDM: 11/23 23:48 Bladder Scan please ordered. le 11/24 00:01 Financial registration complete. [facility] 00:09 ketorolac 60 mg IM once ordered. le 00:09 Diazepam 5 mg PO once ordered. 00:41 [facility] Payment Agreement was scanned into [employer] and attached to record. [facility] 02:44 traMADol 25 mg PO once ordered. cs11 02:45 Urine Toxicology Ordered. EDMS 02:45 Urinalysis Ordered. EDMS 02:45 CBC with Diff Ordered. EDMS 02:45 MED Profile Ordered. EDMS 02:45 Liver Profile Ordered. EDMS 02:45 Alcohol Ordered. EDMS 02:45 Urine Culture Ordered. EDMS 02:46 CT Head Without Contrast Ordered. EDMS 05:06 Urine Toxicology Reviewed. cs11 05:06 Urinalysis Reviewed. cs11 05:06 CBC with Diff Reviewed. cs11 05:06 MED Profile Reviewed. cs11 05:06 Liver Profile Reviewed. cs11 05:06 Alcohol Reviewed. cs11 05:06 CT Head Without Contrast Reviewed. cs11 05:13 Phenazopyridine 200 mg PO once ordered. cs11 05:13 Ciprofloxacin 500 mg PO once ordered. cs11 11:07 T-Sheet-- Draft Copy was scanned into [employer] and attached to record. 14:49 Radiology Report was scanned into [employer]UL and attached to record. gb Administered Medications: 00:24 Drug: ketorolac 60 mg [ketorolac 30 mg/mL (1 mL) injection solution (2 mL)] Route: IM; [facility] Site: right gluteus; 00:24 Drug: Diazepam 5 mg [diazepam 5 mg tablet (1 tabs)] Route: PO; [facility] 02:58 Drug: traMADol 25 mg [tramadol 50 mg tablet (0.5 tabs)] Route: PO; cz 05:03 Follow up: Pain 08/13 Adult; Response: No significant change. cz 05:27 Drug: Phenazopyridine 200 mg [phenazopyridine 100 mg tablet (2 tabs)] Route: PO; cz 05:27 Drug: Ciprofloxacin 500 mg [ciprofloxacin 500 mg tablet (1 tabs)] Route: PO; cz Signatures: Dispatcher [employer] Reshma Silver RN RN mcp Zecher, Calvin, RN RN cz Barnhardt, Gloria, Reg Reg gb Eleni Brennan, Kuldeep Go, DO cs11 Bernadette Justice [facility] The chart was reviewed and I authenticate all verbal orders and agree with the evaluation and treatment provided.Attachments: 00:41 [facility] Payment Agreement [facility] 11:07 T-Sheet-- Draft Copy Chart Complete MTDD
--- NOTE | 2016-11-26 06:41 | EDDOCDS ---
Physician Documentation [facility] Name: Lianne Saldana Age: 35 yrs Sex: Female : 1980 Arrival Date: 11/23/2016 Time: 23:14 Bed 8 Private MD: Disposition: 11/24/16 05:10 Discharged to Home/Self Care. Impression: Urinary tract infection, site not specified, Other epilepsy and recurrent seizures - evaluation of/for. - Condition is Stable. - Prescriptions for Cipro 500 mg Oral Tablet - take 1 tablet by ORAL route every 12 hours; 10 tablet. - Medication Reconciliation, Local Pharmacy Hours form. - Follow up: Private Physician; When: Call to arrange an appointment; Reason: Recheck today's complaints. Follow up: Carmina Hines; When: Call to arrange an appointment; Reason: To establish care. - Problem is new. - Symptoms have improved. Historical: - Allergies: Bactrim (Hives); Bentyl (Seizures); IV Dye (Rash); NSAIDS (can not take due to gastric bypass)gastric bypas procedure done in 2002; - Home Meds: 1. gabapentin 300 mg Oral cap 3 caps 3 times per day 2. Latuda 40 mg oral tab 1 tab once daily 3. topiramate 50 mg oral tab 2 times per day 4. Valium 5 mg Oral tab 1 tab 3 times per day 5. Tylenol 325 mg Oral tab 2 tabs every 4-6 hours 6. Motrin 800 mg Oral tab as needed 7. Benadryl Oral as needed - PMHx: ADHD; Anemia; Anxiety; Depression; Hypoglycemia; insomnia; PTSD; Raynauds; Sciatica; TBI; - PSHx: Gastric Bypass; Cholecystectomy; Exploratory lap; pilonidal cyst removal; Hysterectomy; - Social history: Smoking status: Patient uses tobacco products, current some day smoker. No barriers to communication noted, The patient speaks fluent Telugu. - Family history: Not pertinent. - : The pt / caregiver states he / she is not on anticoagulants. Home medication list is obtained from the patient. - Exposure Risk Screening:: None identified. Vital Signs: 11/23 23:22 BP 153 / 75 LA Sitting (auto/reg); Pulse 87 MON; Resp 20 S; Temp 97.4(TE); Pulse Ox cln 100% on R/A; Weight 111.13 kg / 245 lbs (R); Height 5 ft. 8 in. (172.72 cm) (R); Pain 08/13; 11/24 01:33 BP 115 / 63; Pulse 74; Resp 16; Pulse Ox 96% on R/A; Pain 10/10; cz 05:01 BP 134 / 74; Pulse 102; Resp 16; Pulse Ox 100% on R/A; cz 05:03 Pain 08/13; cz 11/23 23:22 Body Mass Index 37.25 (111.13 kg, 172.72 cm) cln MDM: 11/23 23:48 Bladder Scan please ordered. le 11/24 00:01 Financial registration complete. [facility] 00:09 ketorolac 60 mg IM once ordered. le 00:09 Diazepam 5 mg PO once ordered. 00:41 [facility] Payment Agreement was scanned into [employer] and attached to record. [facility] 02:44 traMADol 25 mg PO once ordered. cs11 02:45 Urine Toxicology Ordered. EDMS 02:45 Urinalysis Ordered. EDMS 02:45 CBC with Diff Ordered. EDMS 02:45 MED Profile Ordered. EDMS 02:45 Liver Profile Ordered. EDMS 02:45 Alcohol Ordered. EDMS 02:45 Urine Culture Ordered. EDMS 02:46 CT Head Without Contrast Ordered. EDMS 05:06 Urine Toxicology Reviewed. cs11 05:06 Urinalysis Reviewed. cs11 05:06 CBC with Diff Reviewed. cs11 05:06 MED Profile Reviewed. cs11 05:06 Liver Profile Reviewed. cs11 05:06 Alcohol Reviewed. cs11 05:06 CT Head Without Contrast Reviewed. cs11 05:13 Phenazopyridine 200 mg PO once ordered. cs11 05:13 Ciprofloxacin 500 mg PO once ordered. cs11 11:07 T-Sheet-- Draft Copy was scanned into [employer] and attached to record. 14:49 Radiology Report was scanned into [employer] and attached to record. gb Administered Medications: 00:24 Drug: ketorolac 60 mg [ketorolac 30 mg/mL (1 mL) injection solution (2 mL)] Route: IM; [place] Site: right gluteus; 00:24 Drug: Diazepam 5 mg [diazepam 5 mg tablet (1 tabs)] Route: PO; [place] [facility] 02:58 Drug: traMADol 25 mg [tramadol 50 mg tablet (0.5 tabs)] Route: PO; cz 05:03 Follow up: Pain 08/13 Adult; Response: No significant change. cz 05:27 Drug: Phenazopyridine 200 mg [phenazopyridine 100 mg tablet (2 tabs)] Route: PO; cz 05:27 Drug: Ciprofloxacin 500 mg [ciprofloxacin 500 mg tablet (1 tabs)] Route: PO; cz Signatures: Dispatcher [employer] Reshma Silver RN RN mcp Zecher, Calvin, RN RN cz Barnhardt, Gloria, Reg Reg gb Eleni Brennan, Kuldeep Go, DO cs11 Bernadette Justice [facility] The chart was reviewed and I authenticate all verbal orders and agree with the evaluation and treatment provided.Attachments: 00:41 [facility] Payment Agreement [facility] 11:07 T-Sheet-- Draft Copy Chart Complete MTDD
--- NOTE | 2016-11-26 06:41 | EDDOCDS ---
Nurse's Notes [facility] Name: Lianne Saldana Age: 35 yrs Sex: Female : 1980 Arrival Date: 11/23/2016 Time: 23:14 Bed 8 Private MD: Diagnosis: Urinary tract infection, site not specified;Other epilepsy and recurrent seizures-evaluation of/for Presentation: 11/23 23:18 Presenting complaint: EMS states: Called EMS for back pain. While enroute pt went in [facility] and out of consciousness, pt states that she thinks this is related to her anxiety, has been incontinent x2 today. Acute neurological deficits are not present. Mechanism of Injury: No Mechanism of Injury. Adult Sepsis Screening: The patient does not have new or worsening altered mentation. Patient's respiratory rate is less than 22. Systolic blood pressure is greater than 100. Patient has a qSOFA score of 0- Negative Sepsis Screen. Suicide/Homicide risk assessment- the patient denies having any suicidal and/or homicidal ideations and does not present with any other emotional, behavioral or mental health complaints. 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 Transition of care: patient was not received from another setting of care. 23:18 Acuity: KRYS Level 3 [facility] 23:18 Method Of Arrival: Ambulance [facility] Triage Assessment: 23:25 HIV screening NA for this visit Offered previously. The patient is triaged at the [facility] bedside. See Assessment in Nurses Notes section of ED record. Historical: - Allergies: Bactrim (Hives); Bentyl (Seizures); IV Dye (Rash); NSAIDS (can not take due to gastric bypass)gastric bypas procedure done in 2002; - Home Meds: 1. gabapentin 300 mg Oral cap 3 caps 3 times per day 2. Latuda 40 mg oral tab 1 tab once daily 3. topiramate 50 mg oral tab 2 times per day 4. Valium 5 mg Oral tab 1 tab 3 times per day 5. Tylenol 325 mg Oral tab 2 tabs every 4-6 hours 6. Motrin 800 mg Oral tab as needed 7. Benadryl Oral as needed - PMHx: ADHD; Anemia; Anxiety; Depression; Hypoglycemia; insomnia; PTSD; Raynauds; Sciatica; TBI; - PSHx: Gastric Bypass; Cholecystectomy; Exploratory lap; pilonidal cyst removal; Hysterectomy; - Social history: Smoking status: Patient uses tobacco products, current some day smoker. No barriers to communication noted, The patient speaks fluent [place]. - Family history: Not pertinent. - : The pt / caregiver states he / she is not on anticoagulants. Home medication list is obtained from the patient. - Exposure Risk Screening:: None identified. Screenin:26 Screening information is obtained from the patient. Fall risk: No risks identified. mcp Assistance ADL's: requires no assistance with activities of daily living. Abuse/DV Screen: The patient / caregiver reports he/she is: not in a situation that causes fear, pain or injury. Nutritional screening: No deficits noted. Advance Directives: There is no active DNR order. home support is adequate. Assessment: 23:25 General: Appears uncomfortable, Behavior is cooperative. Pain: Location: back, right mcp leg and left leg Pain currently is 7 out of 10 on a pain scale. Neurological: No deficits noted. Respiratory: Airway is patent Respiratory effort is even, unlabored. Derm: Skin is pink, warm & dry. Musculoskeletal: Circulation, motion, and sensation intact. 11/24 00:30 General: Appears uncomfortable, Behavior is cooperative. Neurological: No deficits mcp noted. Respiratory: Airway is patent Respiratory effort is even, unlabored. Derm: Skin is pink, warm & dry. 01:13 Adult Sepsis Screening: The patient does not have new or worsening altered mentation. cz Patient's respiratory rate is less than 22. Systolic blood pressure is greater than 100. Patient has a qSOFA score of 0- Negative Sepsis Screen. 01:33 Reassessment: Patient appears in no apparent distress at this time. Patient states cz symptoms have not improved. pt rates her back pain a 10/10 worse on right side provider notified. 02:32 Reassessment: Patient appears in no apparent distress at this time. pt resting quietly cz with eyes closed when entering room to take vital signs,pt woke up and stated she was still having pain, pt's vital signs stable provider made aware. 03:25 Adult Sepsis Screening: The patient does not have new or worsening altered mentation. cz Patient's respiratory rate is less than 22. Systolic blood pressure is greater than 100. Patient has a qSOFA score of 0- Negative Sepsis Screen. 03:58 Reassessment: administrative underwriter called to room pt expressed concern on treatment by staff and cz E.D.and wanted to sign out AMA this administrative underwriter spoke with pt at length and pt verbalized understanding of treatment . pt decided to stay for results of labs and scan that was ordered. 05:04 Reassessment: Patient states symptoms have not improved. pt up to bedside commode on cz own to void returned to bed. pt states no change in right lower back pain after p.o. medication pt awaiting review of labs.radiology results by Elia Shankar,. 05:05 Adult Sepsis Screening: The patient does not have new or worsening altered mentation. cz Patient's respiratory rate is less than 22. Systolic blood pressure is greater than 100. Patient has a qSOFA score of 0- Negative Sepsis Screen. Vital Signs: 11/23 23:22 BP 153 / 75 LA Sitting (auto/reg); Pulse 87 MON; Resp 20 S; Temp 97.4(TE); Pulse Ox cln 100% on R/A; Weight 111.13 kg (R); Height 5 ft. 8 in. (172.72 cm) (R); Pain 10/10; 11/24 01:33 BP 115 / 63; Pulse 74; Resp 16; Pulse Ox 96% on R/A; Pain 10/10; cz 05:01 BP 134 / 74; Pulse 102; Resp 16; Pulse Ox 100% on R/A; cz 05:03 Pain 10/10; cz 11/23 23:22 Body Mass Index 37.25 (111.13 kg, 172.72 cm) cln ED Course: 11/23 23:16 Patient visited by Mika Nelson, Phlebotomist Lab Assistant. ml3 23:16 Patient moved to Waiting ml3 23:17 Patient moved to 8 ml3 23:20 Triage Initiated [facility] 23:23 Patient visited by Nancy Pierre PCA. cln 23:23 Pt greeted and oriented to ED. Patient advised of names of staff involved in care, cln location of call [place], wait times and NPO status. Patient has correct armband on for positive identification. Placed in gown. Bed in low position. Call light in reach. Side rails up X 1. 23:25 Eleni Brennan FNP is PHCP. le 23:26 Patient visited by Reshma Horton RN. [facility] 23:26 The patient / caregiver is instructed regarding the plan of care and ED course. mcp 23:31 Patient visited by Eleni Brennan FNP. le 23:31 Patient visited by Eleni Brennan FNP. le 11/24 00:09 Bladder Scan completed Results: 0. mcp 00:41 [facility] Payment Agreement was scanned into [employer] and attached to record. slh 01:00 Patient visited by Bobby Thomas PCA. kb5 01:09 Patient visited by Reshma Horton RN. mcp 01:33 Patient visited by Delfino Coronel RN. cz 02:17 Patient visited by Delfino Coronel RN. cz 02:32 Patient visited by Delfino Coronel RN. cz 03:04 Patient visited by Delfino Coronel RN. cz 03:38 Patient visited by Delfino Coronel RN. cz 04:07 CT Head Without Contrast Returned. EDMS 04:11 Patient visited by Delfino Coronel RN. cz 04:50 Patient visited by Delfino Coronel RN. cz 05:09 Carmina Hines is Referral Physician. cs11 05:10 Kuldeep Limon DO is Attending Physician. cs11 05:28 No IV's were initiated during this patient's visit. No procedures done that require cz assistance. 11:07 T-Sheet-- Draft Copy was scanned into [employer] and attached to record. gb 14:49 Radiology Report was scanned into [employer] and attached to record. gb Administered Medications: 00:24 Drug: ketorolac 60 mg [ketorolac 30 mg/mL (1 mL) injection solution (2 mL)] Route: IM; [facility] Site: right gluteus; 00:24 Drug: Diazepam 5 mg [diazepam 5 mg tablet (1 tabs)] Route: PO; [facility] 02:58 Drug: traMADol 25 mg [tramadol 50 mg tablet (0.5 tabs)] Route: PO; cz 05:03 Follow up: Pain 08/13 Adult; Response: No significant change. cz 05:27 Drug: Phenazopyridine 200 mg [phenazopyridine 100 mg tablet (2 tabs)] Route: PO; cz 05:27 Drug: Ciprofloxacin 500 mg [ciprofloxacin 500 mg tablet (1 tabs)] Route: PO; cz Order Results: Lab Order: Urine Toxicology; SPEC'M 11/24/16 02:56 Test: AMPHETAMINES LEVEL URINE; Value: NEGATIVE; Range: NEGATIVE; Status: F Test: BARBITURATES URINE; Value: NEGATIVE; Range: NEGATIVE; Status: F Test: BENZODIAZEPINES URINE; Value: POSITIVE; Range: NEGATIVE; Abnormal: Above high normal; Status: F Test: CANNABINOIDS URINE; Value: NEGATIVE; Range: NEGATIVE; Status: F Test: COCAINE METABOLITE URINE; Value: NEGATIVE; Range: NEGATIVE; Status: F Test: METHADONE URINE; Value: NEGATIVE; Range: NEGATIVE; Status: F Test: OPIATES URINE; Value: NEGATIVE; Range: NEGATIVE; Status: F Test: TRICYCLIC ANTIDEPRESS URINE; Value: NEGATIVE; Range: NEGATIVE; Status: F Test Note: ; ALL PRESUMPTIVE POSITIVE FINDINGS ARE UNCONFIRMED NORMAL VALUES THRESHOLD IN NG/ML AMPHETAMINES 1000 METHAMPHETAMINES 1000 BARBITURATES 300 BENZODIAZEPINES 300 CANNABINOIDS (THC) 50 COCAINE METABOLITE 300 METHADONE 300 OPIATES 300 PHENCYCLIDINE 25 TRICYCLIC ANTIDEPRESSANTS 1000 RESULTS ARE FOR MEDICAL PURPOSES ONLY. ALL URINE SPECIMENS WILL BE SAVED FOR 3 DAYS. IF CONFIRMATION OF A PRESUMPTIVE POSTIVE SCREEN RESULT IS DESIRED, CALL CHEMISTRY ([phone]) AND REQUEST URINE TO BE SENT TO REFERENCE LAB. FOR A LIST OF CLOSELY RELATED COMPOUNDS PLEASE CALL THE LAB. Lab Order: Urinalysis; SPEC'M 11/24/16 02:56 Test: APPEARANCE, URINE; Value: CLEAR; Range: CLEAR; Status: F Test: COLOR, URINE; Value: STRAW; Range: YELLOW; Status: F Test: PH,URINE; Value: 5.0; Range: 5.0-9.0; Units: UNITS; Status: F Test: SPECIFIC GRAVITY URINE AUTO; Value: 1.006; Range: 1.002-1.035; Status: F Test: PROTEIN, URINE AUTO; Value: NEGATIVE; Range: NEGATIVE; Units: mg/dL; Status: F Test: GLUCOSE, URINE (UA) AUTO; Value: NEGATIVE; Range: NEGATIVE; Units: mg/dL; Status: F Test: KETONE, URINE AUTO; Value: NEGATIVE; Range: NEGATIVE; Units: mg/dL; Status: F Test: UROBILINOGEN, URINE AUTO; Value: 0.2; Range: 0.0-2.0; Units: mg/dL; Status: F Test: BILIRUBIN, URINE AUTO; Value: NEGATIVE; Range: NEGATIVE; Status: F Test: NITRITE, URINE AUTO; Value: NEGATIVE; Range: NEGATIVE; Status: F Test: LEUKOCYTE ESTERASE, URINE AUTO; Value: NEGATIVE; Range: NEGATIVE; Status: F Test: BLOOD, URINE BLOOD; Value: 1+; Range: NEGATIVE; Abnormal: Above high normal; Status: F Test: WBC, URINE AUTO; Value: 4; Range: 0-3; Abnormal: Above high normal; Units: /HPF; Status: F Test: RBC, URINE AUTO; Value: 0; Range: 0-3; Units: /HPF; Status: F Test: BACTERIA, URINE AUTO; Value: 1+; Range: NEGATIVE; Abnormal: Above high normal; Status: F Test: SQUAMOUS EPITHELIAL CELL UR AU; Value: 2; Range: 0-6; Units: /HPF; Status: F Test: HYALINE CAST, URINE AUTO; Value: 0; Range: 0-1; Units: /LPF; Status: F Lab Order: Urine Culture; SPEC'M 11/24/16 02:56 Test: URINE CULTURE; Value: URINE CULTURE RESULT NO GROWTH; Status: F Lab Order: CBC with Diff; SPEC'M 11/24/16 02:56 Test: WHITE BLOOD COUNT; Value: 9.1; Range: 4.0-10.0; Units: K/mm3; Status: F Test: RED BLOOD COUNT; Value: 3.91; Range: 4.00-5.40; Abnormal: Below low normal; Units: M/mm3; Status: F Test: HEMOGLOBIN; Value: 11.8; Range: 12.0-16.0; Abnormal: Below low normal; Units: g/dl; Status: F Test: HEMATOCRIT; Value: 37.3; Range: 36.0-47.0; Units: %; Status: F Test: MEAN CORPUSCULAR VOLUME; Value: 95.3; Range: 80.0-96.0; Units: fl; Status: F Test: MEAN CORPUSCULAR HEMOGLOBIN; Value: 30.2; Range: 27.0-33.0; Units: pg; Status: F Test: MEAN CORPUSCULAR HGB CONC; Value: 31.6; Range: 32.0-36.5; Abnormal: Below low normal; Units: g/dl; Status: F Test: RED CELL DISTRIBUTION WIDTH; Value: 14.1; Range: 11.5-14.5; Units: %; Status: F Test: PLATELET COUNT, AUTOMATED; Value: 272; Range: 150-450; Units: k/mm3; Status: F Test: NEUTROPHILS %; Value: 54.7; Range: 36.0-66.0; Units: %; Status: F Test: LYMPH %; Value: 36.3; Range: 24.0-44.0; Units: %; Status: F Test: MONO %; Value: 4.0; Range: 0.0-5.0; Units: %; Status: F Test: EOS %; Value: 3.5; Range: 0.0-3.0; Abnormal: Above high normal; Units: %; Status: F Test: BASO %; Value: 0.2; Range: 0.0-1.0; Units: %; Status: F Test: LARGE UNSTAINED CELL %; Value: 1.3; Range: 0.0-4.0; Units: %; Status: F Test: NEUTROPHILS #; Value: 5.0; Range: 1.8-7.7; Units: K/mm3; Status: F Test: LYMPH #; Value: 3.3; Range: 1.5-4.5; Units: K/mm3; Status: F Test: MONO #; Value: 0.4; Range: 0.0-0.8; Units: K/mm3; Status: F Test: EOS #; Value: 0.3; Range: 0.0-0.50; Units: K/mm3; Status: F Test: BASO #; Value: 0.0; Range: 0.0-0.2; Units: K/mm3; Status: F Test: LARGE UNSTAINED CELL #; Value: 0.1; Range: 0.0-0.4; Units: K/mm3; Status: F Lab Order: MED Profile; SPEC'M 11/24/16 02:56 Test: GLUCOSE, FASTING; Value: 77; Range: 70-105; Units: MG/DL; Status: F Test: BLOOD UREA NITROGEN; Value: 19; Range: 7-18; Abnormal: Above high normal; Units: MG/DL; Status: F Test: CREATININE FOR GFR; Value: 1.11; Range: 0.55-1.02; Abnormal: Above high normal; Units: MG/DL; Status: F Test: GLOMERULAR FILTRATION RATE; Value: 58.9; Range: >60; Abnormal: Below low normal; Status: F Test: SODIUM LEVEL; Value: 143; Range: 136-145; Units: MEQ/L; Status: F Test: POTASSIUM SERUM; Value: 4.1; Range: 3.5-5.1; Units: MEQ/L; Status: F Test: CHLORIDE LEVEL; Value: 109; Range: 98-107; Abnormal: Above high normal; Units: MEQ/L; Status: F Test: CARBON DIOXIDE LEVEL; Value: 26; Range: 21-32; Units: MEQ/L; Status: F Test: ANION GAP; Value: 8; Range: 8-16; Units: MEQ/L; Status: F Test: CALCIUM LEVEL; Value: 8.1; Range: 8.5-10.1; Abnormal: Below low normal; Units: MG/DL; Status: F Test Note: ; Units are mL/min/1.73 m2 Chronic Kidney Disease Staging per NKF: Stage I & II GFR >=60 Normal to Mildly Decreased Stage III GFR 30-59 Moderately Decreased Stage IV GFR 15-29 Severely Decreased Stage V GFR <15 Very Little GFR Left ESRD GFR <15 on PUBLIC UTILITIES SALES REPRESENTATIVE Lab Order: Liver Profile; [facility] 11/24/16 02:56 Test: AST/SGOT; Value: 11; Range: 15-37; Abnormal: Below low normal; Units: U/L; Status: F Test: ALT/SGPT; Value: 15; Range: 12-78; Units: U/L; Status: F Test: ALKALINE PHOSPHATASE; Value: 29; Range: 45-117; Abnormal: Below low normal; Units: U/L; Status: F Test: BILIRUBIN,TOTAL; Value: 0.3; Range: 0.2-1.0; Units: MG/DL; Status: F Test: BILIRUBIN,DIRECT; Value: < 0.1; Range: 0.0-0.2; Units: MG/DL; Status: F Test: TOTAL PROTEIN; Value: 6.5; Range: 6.4-8.2; Units: GM/DL; Status: F Test: ALBUMIN; Value: 3.5; Range: 3.2-5.2; Units: GM/DL; Status: F Test: ALBUMIN/GLOBULIN RATIO; Value: 1.17; Range: 1.00-1.93; Status: F Lab Order: Alcohol; SPEC'M 11/24/16 02:56 Test: ETHYL ALCOHOL (ETHANOL); Value: < 0.003; Range: 0.000-0.010; Units: %; Status: F Radiology Order: CT Head Without Contrast Test: CT Head Without Contrast REASON FOR EXAMINATION: seizure; ; CLINICAL HISTORY: Seizure.; TECHNIQUE: Multiple axial brain CT scan sections were obtained from base to vertex without contrast a; dministration.; COMMENTS:; The study shows normal configuration of sella turcica. There are no intra or extra-axial collections.; There is no mass effect or midline shift. There is no evidence of hematoma formation. No hydrocephal; us is present. No abnormal calcifications are noted.; No significant abnormalities are seen either in the posterior fossa or supratentorial compartment.; The sinuses and mastoid air cells are patent.; IMPRESSION:; No evidence of acute intracranial pathology.; Thank you for your kind referral of this patient.; ; Outcome: 05:10 Discharge ordered by Provider. cs11 05:27 Discharge Assessment: Patient awake, alert and oriented x 3. No cognitive and/or cz functional deficits noted. Patient verbalized understanding of disposition instructions. patient administered narcotics - no. The following High Risk Discharge criteria are identified: None. Discharged to home via wheelchair, with family. Condition: unchanged. Discharge instructions given to patient, Instructed on discharge instructions, follow up and referral plans. medication usage, Demonstrated understanding of instructions, medications, Pt was receptive of discharge instructions/ teaching. Prescriptions given X 1. CT Study completed. Property :Personal belongings accompany Pt. 05:40 Patient left the ED. cz Signatures: Dispatcher [employer] EDReshma Tyler RN RN mcp Zecher, Calvin, RN RN cz Barnhardt, Gloria, Reg Reg Mika Gross, Phlebotomist Lab Assistant Unit ml3 Bobby Thomas, TOBACCO CLOTH RECLAIMER TOBACCO CLOTH RECLAIMER [id number] Eleni Brennan FNP FNP le Schiff, Craig, DO DO cs11 Bernadette Justice, Crystal, TOBACCO CLOTH RECLAIMER TOBACCO CLOTH RECLAIMER cln Chart Complete MTDD
== END 2016-11-24 05:40 | disposition home or self-care (01) ==
LOC: M ED 23:14
DX: N39.0 Urinary tract infection, site not specified (principal); R56.9 Unspecified convulsions; M54.30 Sciatica, unspecified side; F90.9 Attention-deficit hyperactivity disorder, unspecified type; D64.9 Anemia, unspecified; F41.9 Anxiety disorder, unspecified; F32.9 Major depressive disorder, single episode, unspecified; I73.00 Raynaud's syndrome without gangrene; E16.2 Hypoglycemia, unspecified; G47.00 Insomnia, unspecified; F43.10 Post-traumatic stress disorder, unspecified; Z98.84 Bariatric surgery status; Z88.1 Allergy status to other antibiotic agents; Z88.8 Allergy status to other drugs, medicaments and biological substances; Z91.041 Radiographic dye allergy status; F17.210 Nicotine dependence, cigarettes, uncomplicated
CPT/HCPCS: 70450; 80048; 80076; 80306; 81001; 85025; 87086; 96372; 99284; G0480; J1885